=== PATIENT | female | born 1945 | race Caucasian/White ===

== ENCOUNTER → 2017-06-07 | Outpatient (CLI) | payer MEDICARE, BC ==
[2016-06-11 12:37] VITALS: BP 149/78
[~2017-06-07] MED LIST: VARE0.5T PO
--- NOTE | 2017-06-07 09:56 | KCIC ---
Bone mineral density exam History: Osteopenia, postmenopausal Comparison: January 23, 2014 Findings: Bone mineral density examination utilizing DEXA was performed. Bone mineral density of the left hip was 0.789 g/cm2 corresponds with a T score -1.3, Z score 0.5. Comparing with the previous exam, there has been 1.4% increase. The bone mineral density of the lumbar spine was 1.031 g/cm2 which corresponds with a T-score of -0.1, Z score 2.2 . Comparison with the previous exam, there has been 23% increase. There appears to be a greater degree of degenerative change in the interval, scoliosis also noted. There By World Congress on Osteoporosis criteria, a T score of 0 to-1 SD is considered to be within normal limits. A T score of -1 to -2.5 SD is considered osteopenia. A T score less than -2.5 SD is considered osteoporosis Impression: 1. Bone mineral density of the lumbar spine is considered within normal limits although likely artificially elevated due to the presence of progressive degenerative change. 2. There is osteopenia of the left hip. Electronically signed by: Manuel Mccabe MD (06/07/2017 9:53 AM) [id number]
== END | disposition home or self-care (01) ==
LOC: KCIC DEXA 09:02
PROVIDERS: ATTEND Family Medicine
DX: M85.80 Other specified disorders of bone density and structure, unspecified site (principal); Z78.0 Asymptomatic menopausal state
CPT/HCPCS: 77080

== ENCOUNTER 2018-12-28 23:46 | Emergency (ER) | payer MEDICARE, BC ==
[~2018-12-28] VITALS: Ht 165.1 cm; Wt 66.7 kg
[2018-12-29] MEDS ORDERED: IV NORMAL SALINE 1000ML BAG 1,000 ML IV SCH (00:15)
[2018-12-29] MEDS ORDERED: ONDANSETRON PF 4 MG/2 ML VIAL. IV ONE (00:15)
[2018-12-29 00:18] LABS: BILIRUBIN,URINE NEGATIVE (NEG); CLARITY,URINE CLEAR; COLOR,URINE YELLOW; NITRITE,URINE NEGATIVE (NEG); PH,URINE 6.5; PROTEIN,URINE 30 mg/dL (NEG-TRACE)
[2018-12-29 00:41] LABS: BASO # 0.1 x10^3/uL (0.0-0.2); BASO % 1 % (0-3); EOS % 0 % (0-3); HEMOGLOBIN 14.3 g/dL (12.0-15.5); LYMPH # 0.7 x10^3/uL (1.0-4.8); LYMPH % 10 % (24-48); MEAN CORPUSCULAR HEMOGLOBIN 31 pg (25-35); MEAN CORPUSCULAR HGB CONC 33 g/dL (31-37); MEAN CORPUSCULAR VOLUME 93 fL (79-100); MONO # 0.9 x10^3/uL (0.0-1.1); MONO % 12 % (0-9); NEUT # 5.4 x10^3uL (1.8-7.7); NEUT % 77 % (31-73); PLATELET COUNT 150 x10^3/uL (140-400); RED BLOOD COUNT 4.61 x10^6/uL (3.50-5.40); WHITE BLOOD COUNT 7.1 x10^3/uL (4.0-11.0)
--- NOTE | 2018-12-29 00:41 | PHYS DOC ---
Past Medical History Additional Past Medical Histor: CHRONIC BACK PAIN Additional Past Surgical Histo: SPINAL STIMULATOR Alcohol Use: Occasionally Drug Use: None Adult General Chief Complaint Chief Complaint: LOWER EXT PAIN HPI HPI Patient is a 73 year old female who presents with nausea, vomiting, headache, cramps in bilateral thighs. This started approximately 24-36 hours prior to arrival. No blood in the emesis. No diarrhea. Patient reports passing flatus. No significant abdominal pain. No chest pain or palpitations.[] Review of Systems Review of Systems Constitutional: Reports fever, no shaking chills[] Eyes: Denies change in visual acuity, redness, or eye pain [] HENT: Denies nasal congestion or sore throat [] Respiratory: Denies cough or shortness of breath [] Cardiovascular: Chest pain or palpitations[] GI: See history of present illness[] : Denies dysuria or hematuria [] Musculoskeletal: Denies back pain or joint pain [] Integument: Denies rash or skin lesions [] Neurologic: Denies focal weakness or sensory changes [] Endocrine: Denies polyuria or polydipsia [] All other systems were reviewed and found to be within normal limits, except as documented in this note. Current Medications Current Medications Current Medications Medications (Trade) Dose Ordered Sig/Pedro Start Time Stop Time Status Last Admin Dose Admin Ketorolac Tromethamine (Toradol 15mg Vial) 15 mg 1X ONCE 12/29/18 01:30 12/29/18 01:31 DC 12/29/18 01:28 15 MG Ondansetron HCl (Zofran) 4 mg 1X ONCE 12/29/18 00:15 12/29/18 00:16 DC 12/29/18 00:35 4 MG Sodium Chloride 1,000 ml @ 1,000 mls/hr Q1H 12/29/18 00:15 12/29/18 01:15 DC 12/29/18 00:35 1,000 MLS/HR Allergies Allergies Allergies Coded Allergies Type Severity Reaction Last Updated Verified Iodinated Contrast- Oral and IV Dye Allergy Intermediate 06/10/16 Yes Physical Exam Physical Exam Constitutional: Well developed, well nourished, no acute distress, non-toxic appearance. [] HENT: Normocephalic, atraumatic, bilateral external ears normal, oropharynx moist, no oral exudates, nose normal. [] Eyes: PERRLA, EOMI, conjunctiva normal, no discharge. [] Neck: Normal range of motion, no tenderness, supple, no stridor. [] Cardiovascular:Heart rate regular rhythm, no murmur [] Lungs & Thorax: Bilateral breath sounds clear to auscultation [] Abdomen: Bowel sounds normal, soft, no tenderness, no masses, no pulsatile masses. [] Skin: Warm, dry, no erythema, no rash. [] Back: No tenderness, no CVA tenderness. [] Extremities: No tenderness, no cyanosis, no clubbing, ROM intact, no edema. [] Neurologic: Alert and oriented X 3, normal motor function, normal sensory function, no focal deficits noted. [] Psychologic: Affect normal, judgement normal, mood normal. [] Current Patient Data Vital Signs Vital Signs Date Time Temp Pulse Resp B/P (MAP) Pulse Ox O2 Delivery O2 Flow Rate FiO2 12/29/18 01:26 96 17 156/75 (102) 94 Room Air 12/29/18 00:13 98.6 98.6 Lab Values Laboratory Tests Test 12/29/18 00:03 12/29/18 00:30 12/29/18 00:41 Urine Collection Type Unknown Urine Color Yellow Urine Clarity Clear Urine pH 6.5 Urine Specific [place] 1.025 Urine Protein 30 mg/dL (NEG-TRACE) Urine Glucose (UA) Negative mg/dL (NEG) Urine Ketones (Stick) Trace mg/dL (NEG) Urine Blood Small (NEG) Urine Nitrite Negative (NEG) Urine Bilirubin Negative (NEG) Urine Urobilinogen Dipstick 1.0 mg/dL (0.2 mg/dL) Urine Leukocyte Esterase Negative (NEG) Urine RBC Occ /HPF (0-2) Urine WBC Occ /HPF (0-4) Urine Squamous Epithelial Cells Occ /LPF Urine Bacteria Few /HPF (0-FEW) Urine Mucus Mod /LPF White Blood Count 7.1 x10^3/uL (4.0-11.0) Red Blood Count 4.61 x10^6/uL (3.50-5.40) Hemoglobin 14.3 g/dL (12.0-15.5) Hematocrit 43.0 % (36.0-47.0) Mean Corpuscular Volume 93 fL (79-100) Mean Corpuscular Hemoglobin 31 pg (25-35) Mean Corpuscular Hemoglobin Concent 33 g/dL (31-37) Red Cell Distribution Width 14.0 % (11.5-14.5) Platelet Count 150 x10^3/uL (140-400) Neutrophils (%) (Auto) 77 % (31-73) H Lymphocytes (%) (Auto) 10 % (24-48) L Monocytes (%) (Auto) 12 % (0-9) H Eosinophils (%) (Auto) 0 % (0-3) Basophils (%) (Auto) 1 % (0-3) Neutrophils # (Auto) 5.4 x10^3uL (1.8-7.7) Lymphocytes # (Auto) 0.7 x10^3/uL (1.0-4.8) L Monocytes # (Auto) 0.9 x10^3/uL (0.0-1.1) Eosinophils # (Auto) 0.0 x10^3/uL (0.0-0.7) Basophils # (Auto) 0.1 x10^3/uL (0.0-0.2) Prothrombin Time 12.8 SEC (11.7-14.0) Prothrombin Time INR 1.0 (0.8-1.1) Sodium Level 138 mmol/L (136-145) Potassium Level 4.2 mmol/L (3.5-5.1) Chloride Level 101 mmol/L (98-107) Carbon Dioxide Level 30 mmol/L (21-32) Anion Gap 7 (6-14) Blood Urea Nitrogen 12 mg/dL (7-20) Creatinine 0.7 mg/dL (0.6-1.0) Estimated GFR (Cockcroft-Gault) 81.6 BUN/Creatinine Ratio 17 (6-20) Glucose Level 111 mg/dL (70-99) H Calcium Level 8.9 mg/dL (8.5-10.1) Total Bilirubin 0.4 mg/dL (0.2-1.0) Aspartate Amino Transferase (AST) 27 U/L (15-37) Alanine Aminotransferase (ALT) 21 U/L (14-59) Alkaline Phosphatase 75 U/L (46-116) Total Protein 7.8 g/dL (6.4-8.2) Albumin 3.6 g/dL (3.4-5.0) Albumin/Globulin Ratio 0.9 (1.0-1.7) L Lipase 72 U/L (73-393) L Influenza Type A Antigen Negative (NEGATIVE) Influenza Type B Antigen Negative (NEGATIVE) Laboratory Tests 12/29/18 00:30 Laboratory Tests 12/29/18 00:30 EKG EKG [] Radiology/Procedures Radiology/Procedures [] Course & Med Decision Making Course & Med Decision Making Pertinent Labs and Imaging studies reviewed. (See chart for details) ED course: Patient arrived, was placed in bed, in tolerated exam well. Patient did get some relief with the Toradol as well as the antiemetics. Patient's vomiting did resolve with the antiemetics. Discussed findings and plan with patient and family who voiced understanding. Patient was discharged in improved condition Medical decision making: There is no evidence of an obstruction given patient still passing flatus, no evidence of intractable nausea or vomiting, no evidence of significant electrolyte abnormality, no evidence of urinary tract infection/pyelonephritis. No evidence of this being influenza.[] Dragon Disclaimer Dragon Disclaimer This electronic medical record was generated, in whole or in part, using a voice recognition dictation system. Departure Departure Impression: Primary Impression: Vomiting Additional Impressions: Myalgia Headache Disposition: 01 HOME, SELF-CARE Condition: IMPROVED Referrals: MARLA MARTINEZ MD (PCP) Follow-up in 2 days Patient Instructions: General Headache Without Cause, Myalgia, Adult, Nausea and Vomiting Additional Instructions: Drink plenty of fluids, frequent small sips. No fatty foods, no milk, and no pepper for the next 48 hours. For the next 48 hours eat a diet rich in carbohydrates with foods such as bananas, rice, applesauce, and toast. Follow- up with your regular doctor in 2 days. Return to the ER if unable to tolerate liquids, worsening headache, a fever of more than 101, or any other concerns. Scripts Meloxicam (MELOXICAM) 7.5 Mg Tablet 7.5 MG PO DAILY, #20 TAB Prov: KATHYA CROCKETT DO 12/29/18 Metoclopramide Hcl (REGLAN) 10 Mg Tablet 10 MG PO QIDACHS, #30 TAB 0 Refills Prov: KATHYA CROCKETT DO 12/29/18 Problem Qualifiers Primary Impression: Vomiting Vomiting type: unspecified Vomiting Intractability: non-intractable Nausea presence: unspecified Qualified Codes: R11.10 - Vomiting, unspecified Additional Impressions: Headache Headache type: unspecified Headache chronicity pattern: episodic headache Intractability: not intractable Qualified Codes: R51 - Headache KATHYA CROCKETT DO Dec 29, 2018 00:41
[2018-12-29 00:53] LABS: CALCIUM 8.9 mg/dL (8.5-10.1); CREATININE 0.7 mg/dL (0.6-1.0); GFR 81.6; POTASSIUM 4.2 mmol/L (3.5-5.1)
[2018-12-29 00:54] LABS: BACTERIA,URINE FEW /HPF (0-FEW); RBC,URINE OCC /HPF (0-2); SQUAMOUS EPITHELIAL CELL,UR OCC /LPF; WBC,URINE OCC /HPF (0-4)
[2018-12-29 00:54] LABS: PROTHROMBIN TIME PATIENT 12.8 SEC (11.7-14.0)
[2018-12-29 01:01] LABS: ALBUMIN 3.6 g/dL (3.4-5.0); ALBUMIN/GLOBULIN RATIO 0.9 (1.0-1.7); TOTAL BILIRUBIN 0.4 mg/dL (0.2-1.0); TOTAL PROTEIN 7.8 g/dL (6.4-8.2)
[2018-12-29 01:09] LABS: INFLUENZA A PATIENT NEGATIVE (NEGATIVE); INFLUENZA B PATIENT NEGATIVE (NEGATIVE)
[2018-12-29] MEDS ORDERED: KETOROLAC 15 MG/ML VIAL. IV ONE (01:30)
[2018-12-29] MEDS ORDERED: MELO7.5T29 PO (02:19)
[2018-12-29] MEDS ORDERED: METO10TA81 PO (02:19)
[2018-12-29 02:30] VITALS: BP 147/68
== END 2018-12-29 02:39 | disposition home or self-care (01) ==
LOC: ER 23:46
DX: R11.2 Nausea with vomiting, unspecified (principal); R51 Headache; M79.10 Myalgia, unspecified site; G89.29 Other chronic pain; Z91.041 Radiographic dye allergy status
CPT/HCPCS: 36415; 80053; 81001; 83690; 85025; 85610; 87804; 96361; 96374; 96375; 99283; J1885; J2405; J7030

== ENCOUNTER → 2019-06-27 | Outpatient (CLI) | payer MEDICARE, BC ==
[~2019-06-27] MED LIST changes: +MELO7.5T29 PO; +METO10TA81 PO
--- NOTE | 2019-06-27 15:53 | KCIC ---
EXAM: Right hip, 2 views; left hip, 2 views. HISTORY: Chronic pain. COMPARISON: None. FINDINGS: Frontal and frog-leg views of both hips are obtained. There is no fracture, dislocation or subluxation. The femoral heads are normal in configuration. There is mild marginal right greater than left femoral head spurring. There is degenerative change involving the lower lumbar spine. There is a generator within the right buttock with lead extending superior to the [id number]. There is suspected bone demineralization. IMPRESSION: 1. Mild bilateral hip osteoarthritis. 2. No acute osseous finding. Electronically signed by: Catherine España MD (06/27/2019 3:50 PM) [facility]
--- NOTE | 2019-06-27 15:53 | KCIC ---
EXAM: Right hip, 2 views; left hip, 2 views. HISTORY: Chronic pain. COMPARISON: None. FINDINGS: Frontal and frog-leg views of both hips are obtained. There is no fracture, dislocation or subluxation. The femoral heads are normal in configuration. There is mild marginal right greater than left femoral head spurring. There is degenerative change involving the lower lumbar spine. There is a generator within the right buttock with lead extending superior to the [id number]. There is suspected bone demineralization. IMPRESSION: 1. Mild bilateral hip osteoarthritis. 2. No acute osseous finding. Electronically signed by: Catherine España MD (06/27/2019 3:50 PM) [facility]
== END | disposition home or self-care (01) ==
LOC: KCIC 13:40
PROVIDERS: ATTEND Family Medicine
DX: M16.0 Bilateral primary osteoarthritis of hip (principal); G89.29 Other chronic pain
CPT/HCPCS: 73502

== ENCOUNTER → 2019-08-21 | Outpatient (CLI) | payer MEDICARE, BC ==
--- NOTE | 2019-08-30 10:44 | KCIC ---
EXAM: Dual energy x-ray absorptiometry (DEXA). HISTORY: Postmenopausal female presents for osteoporosis screening. COMPARISON: 01/23/2014. TECHNIQUE: Dual energy x-ray absorptiometry of the lumbar spine and left hip was performed. Calculation of bone mineral density based on standard deviations above or below the expected young adult normal value (T-score) was completed. FINDINGS: The average bone mineral density in the 1st through 4th lumbar vertebrae is 1.149 g/cmxcm, corresponding with a T-score of 0.9. There has been a 37% increase in density of the lumbar spine compared to a baseline exam dated 01/23/2014. The average total bone mineral density in the left hip is 0.756 g/cmxcm, corresponding with a T-score of -1.5. There has been a 2.9% decrease in density of the left hip compared to the baseline exam dated 01/23/2014. IMPRESSION: 1. Osteopenia measured at the left hip. 2. Normal bone mineral density measured at the lumbar spine. Note: Definitions established by the World Health Organization: 1. Normal: T-score is -1.0 or above. 2. Osteopenia: T-score is between -1.0 and -2.5 . 3. Osteoporosis: T-score is -2.5 or below. Electronically signed by: Catherine España MD (08/30/2019 10:41 AM) [facility]
== END | disposition home or self-care (01) ==
LOC: KCIC DEXA 11:25
PROVIDERS: ATTEND Family Medicine
DX: M85.80 Other specified disorders of bone density and structure, unspecified site (principal); Z78.0 Asymptomatic menopausal state
CPT/HCPCS: 77080

== ENCOUNTER → 2019-12-19 | Outpatient (CLI) | payer MEDICARE, BC ==
[2019-12-19 10:18] LABS: BASO % 0 % (0-3); EOS # 0.2 x10^3/uL (0.0-0.7); EOS % 3 % (0-3); HEMATOCRIT 40.7 % (36.0-47.0); HEMOGLOBIN 13.6 g/dL (12.0-15.5); LYMPH # 1.7 x10^3/uL (1.0-4.8); LYMPH % 23 % (24-48); MEAN CORPUSCULAR HEMOGLOBIN 31 pg (25-35); MEAN CORPUSCULAR HGB CONC 33 g/dL (31-37); MEAN CORPUSCULAR VOLUME 92 fL (79-100); MONO # 0.8 x10^3/uL (0.0-1.1); MONO % 10 % (0-9); NEUT # 4.7 x10^3/uL (1.8-7.7); NEUT % 63 % (31-73); PLATELET COUNT 193 x10^3/uL (140-400); RED BLOOD COUNT 4.43 x10^6/uL (3.50-5.40); RED CELL DISTRIBUTION WIDTH 13.8 % (11.5-14.5); WHITE BLOOD COUNT 7.4 x10^3/uL (4.0-11.0)
[2019-12-19 10:26] LABS: CALCIUM 9.1 mg/dL (8.5-10.1); CREATININE 0.7 mg/dL (0.6-1.0); GFR 81.4; POTASSIUM 4.3 mmol/L (3.5-5.1)
[2019-12-19 10:31] LABS: ALBUMIN 3.8 g/dL (3.4-5.0); ALBUMIN/GLOBULIN RATIO 1.1 (1.0-1.7); TOTAL BILIRUBIN 0.3 mg/dL (0.2-1.0); TOTAL PROTEIN 7.4 g/dL (6.4-8.2)
[2019-12-19 10:56] LABS: FREE T4 0.95 ng/dL (0.76-1.46); THYROID STIM HORMONE (TSH) 1.54 uIU/mL (0.358-3.74)
--- NOTE | 2019-12-19 12:25 | RAD ---
CHEST PA LATERAL INDICATION: Peripheral edema, respiratory crackles. COMPARISON STUDY: 01/14/2010. FINDINGS: Lungs: Normal lung volume. Minimal interstitial prominence. No consolidation. The tracheobronchial tree and hilar structures are normal. Pleura: No pleural effusion or pneumothorax. Heart and Mediastinum: Cardiomegaly. Tortuous thoracic aorta. Bones and Soft Tissues: Multilevel degenerative changes of the spine. Spinal stability device leads. IMPRESSION: Minimal interstitial prominence, which may reflect trace interstitial edema. No consolidation. Electronically signed by: Manuel Navarrete MD (12/19/2019 12:22 PM) [facility]
== END | disposition home or self-care (01) ==
LOC: RAD 09:55
PROVIDERS: ATTEND Physician Assistant Medical
DX: I51.7 Cardiomegaly (principal); M47.814 Spondylosis without myelopathy or radiculopathy, thoracic region; R60.9 Edema, unspecified; R09.89 Other specified symptoms and signs involving the circulatory and respiratory systems; R63.5 Abnormal weight gain
CPT/HCPCS: 36415; 71046; 80053; 83880; 84439; 84443; 85025

== ENCOUNTER → 2020-01-08 | Outpatient (CLI) | payer MEDICARE, BC ==
[~2020-01-08] MED LIST changes: +ALBU2.5V5 NEB; +AZIT500T PO; +PRED50TA PO
--- NOTE | 2020-01-08 07:40 | RAD ---
EXAM: Bilateral lower extremity venous Doppler. HISTORY: Bilateral lower extremity pain/swelling. COMPARISON: None. FINDINGS: Grayscale and Doppler analysis of the both lower extremity deep venous systems was performed with graded compression and augmentation. The common femoral, greater saphenous, superficial femoral, popliteal and calf veins were assessed. There is no evidence of deep venous thrombosis. A right popliteal cyst measures 4.7 x 0.7 x 3.8 cm. IMPRESSION: 1. No evidence of deep venous thrombosis. 2. Small right popliteal cyst. Electronically signed by: Lane Sanabria MD (01/08/2020 7:37 AM) [id number]
== END | disposition home or self-care (01) ==
LOC: US 06:43
PROVIDERS: ATTEND Family Medicine
DX: M71.21 Synovial cyst of popliteal space [Baker], right knee (principal)
CPT/HCPCS: 93970

== ENCOUNTER 2020-01-13 19:28 | Emergency (ER) | payer MEDICARE, BC ==
[~2020-01-13] VITALS: Ht 157.5 cm; Wt 72.7 kg
[~2020-01-13 19:28] MED LIST changes: -ALBU2.5V5 NEB; -AZIT500T PO; -PRED50TA PO
[2020-01-13] MEDS ORDERED: IPRATRPIUM/ALBUTEROL 0.5/2.5MG 3 ML NEBU. NEB ONE (20:45)
--- NOTE | 2020-01-13 20:47 | PHYS DOC ---
Past Medical History Additional Past Medical Histor: CHRONIC BACK PAIN Additional Past Surgical Histo: SPINAL STIMULATOR Smoking Status: Current Every Day Smoker Alcohol Use: Occasionally Drug Use: None Adult General Chief Complaint Chief Complaint: COUGH HPI HPI 74-year-old female presents to the emergency Department complaints of cough, fever off and on since Monday. She describes hoarseness in her voice as well. She denies any nausea, vomiting, abdominal pain, headache or visual change. She does complain of right shoulder pain, there is a bruise to her right shoulder on exam. Nothing makes her symptoms worse, nothing makes her symptoms better. Review of Systems Review of Systems Constitutional: fever HENT:cough Respiratory: cough/wheeze Cardiovascular: No additional information not addressed in HPI [] GI: Denies abdominal pain, nausea, vomiting, bloody stools or diarrhea [] : Denies dysuria or hematuria [] Musculoskeletal: right shoulder pain Integument: Denies rash or skin lesions [] Neurologic: Denies headache, focal weakness or sensory changes [] All other systems were reviewed and found to be within normal limits, except as documented in this note. Current Medications Current Medications Current Medications Medications (Trade) Dose Ordered Sig/Pedro Start Time Stop Time Status Last Admin Dose Admin Albuterol/ Ipratropium (Duoneb) 3 ml 1X ONCE 01/13/20 20:45 01/13/20 20:46 DC 01/13/20 20:58 3 ML Azithromycin (Zithromax) 500 mg 1X ONCE 01/13/20 22:30 01/13/20 22:31 01/13/20 22:27 500 MG Ceftriaxone Sodium (Rocephin) 1 gm 1X ONCE 01/13/20 22:30 01/13/20 22:31 01/13/20 22:28 1 GM Prednisone (Prednisone) 60 mg 1X ONCE 01/13/20 22:30 01/13/20 22:31 01/13/20 22:26 60 MG Sodium Chloride 1,000 ml @ 1,000 mls/hr 1X ONCE 01/13/20 21:45 01/13/20 22:44 01/13/20 21:38 1,000 MLS/HR Allergies Allergies Allergies Coded Allergies Type Severity Reaction Last Updated Verified Iodinated Contrast Media Allergy Intermediate 06/10/16 Yes Physical Exam Physical Exam Constitutional: Well developed, well nourished, mild distress 2/2 SOB, non-toxic appearance. [] HENT: Normocephalic, atraumatic, bilateral external ears normal, oropharynx moist, no oral exudates, nose normal. [] Eyes: PERRLA, EOMI, conjunctiva normal, no discharge. [] Cardiovascular:Heart rate regular rhythm, no murmur [] Lungs & Thorax: decreased BS, + wheeze Abdomen: Bowel sounds normal, soft, no tenderness, no masses, no pulsatile masses. [] Skin: Warm, dry, no erythema, no rash. [] Back: No tenderness, no CVA tenderness. [] Extremities: Tenderness to palpation of right shoulder, + bruising, no edema. [] Neurologic: Alert and oriented X 3, no focal deficits noted. [] Psychologic: Affect normal, judgement normal, mood normal. [] Current Patient Data Vital Signs Vital Signs Date Time Temp Pulse Resp B/P (MAP) Pulse Ox O2 Delivery O2 Flow Rate FiO2 01/13/20 21:36 107 22 152/75 (100) 95 Room Air 2.0 01/13/20 20:30 99.7 99.7 Lab Values Laboratory Tests Test 01/13/20 20:40 01/13/20 20:54 01/13/20 21:30 White Blood Count 11.4 x10^3/uL (4.0-11.0) H Red Blood Count 4.27 x10^6/uL (3.50-5.40) Hemoglobin 13.0 g/dL (12.0-15.5) Hematocrit 38.9 % (36.0-47.0) Mean Corpuscular Volume 91 fL (79-100) Mean Corpuscular Hemoglobin 31 pg (25-35) Mean Corpuscular Hemoglobin Concent 34 g/dL (31-37) Red Cell Distribution Width 13.7 % (11.5-14.5) Platelet Count 182 x10^3/uL (140-400) Neutrophils (%) (Auto) 74 % (31-73) H Lymphocytes (%) (Auto) 13 % (24-48) L Monocytes (%) (Auto) 11 % (0-9) H Eosinophils (%) (Auto) 2 % (0-3) Basophils (%) (Auto) 1 % (0-3) Neutrophils # (Auto) 8.4 x10^3/uL (1.8-7.7) H Lymphocytes # (Auto) 1.4 x10^3/uL (1.0-4.8) Monocytes # (Auto) 1.3 x10^3/uL (0.0-1.1) H Eosinophils # (Auto) 0.2 x10^3/uL (0.0-0.7) Basophils # (Auto) 0.1 x10^3/uL (0.0-0.2) Sodium Level 139 mmol/L (136-145) Potassium Level 3.6 mmol/L (3.5-5.1) Chloride Level 101 mmol/L (98-107) Carbon Dioxide Level 29 mmol/L (21-32) Anion Gap 9 (6-14) Blood Urea Nitrogen 16 mg/dL (7-20) Creatinine 0.7 mg/dL (0.6-1.0) Estimated GFR (Cockcroft-Gault) 81.4 BUN/Creatinine Ratio 23 (6-20) H Glucose Level 103 mg/dL (70-99) H Lactic Acid Level 0.8 mmol/L (0.4-2.0) Calcium Level 8.8 mg/dL (8.5-10.1) Total Bilirubin 0.4 mg/dL (0.2-1.0) Aspartate Amino Transferase (AST) 20 U/L (15-37) Alanine Aminotransferase (ALT) 20 U/L (14-59) Alkaline Phosphatase 72 U/L (46-116) Total Protein 7.4 g/dL (6.4-8.2) Albumin 3.8 g/dL (3.4-5.0) Albumin/Globulin Ratio 1.1 (1.0-1.7) Influenza Type A Antigen Negative (NEGATIVE) Influenza Type B Antigen Negative (NEGATIVE) Urine Collection Type Unknown Urine Color Yellow Urine Clarity Clear Urine pH 6.5 Urine Specific [place] 1.010 Urine Protein Negative mg/dL (NEG-TRACE) Urine Glucose (UA) Negative mg/dL (NEG) Urine Ketones (Stick) Negative mg/dL (NEG) Urine Blood Negative (NEG) Urine Nitrite Negative (NEG) Urine Bilirubin Negative (NEG) Urine Urobilinogen Dipstick 0.2 mg/dL (0.2 mg/dL) Urine Leukocyte Esterase Negative (NEG) Urine RBC 1-2 /HPF (0-2) Urine WBC 0 /HPF (0-4) Urine Squamous Epithelial Cells Occ /LPF Urine Bacteria 0 /HPF (0-FEW) Laboratory Tests 01/13/20 20:40 Laboratory Tests 01/13/20 20:40 EKG EKG 2110 Sinus tachycardia, LAD, No STEMI, RBBB, [] Radiology/Procedures Radiology/Procedures [] Course & Med Decision Making Course & Med Decision Making Pertinent Labs and Imaging studies reviewed. (See chart for details) []74-year-old female presents to the emergency Department complaints of cough, fever off and on since Monday. She describes hoarseness in her voice as well. She denies any nausea, vomiting, abdominal pain, headache or visual change. She does complain of right shoulder pain, there is a bruise to her right shoulder on exam. Nothing makes her symptoms worse, nothing makes her symptoms better. Labs/Imaging reviewed No obvious consolidation appreciated on chest x-ray Influenza negative, white blood cell count 11.4, metabolic profile unremarkable Patient received nebulizer treatment, DuoNeb in the emergency department with improvement. Given her symptoms I have recommended by mouth antibiotic therapy upon discharge, Medrol Dosepak, Mucinex Patient received Rocephin and Zithromax in ER Dragon Disclaimer Dragon Disclaimer See Above Departure Departure Impression: Primary Impression: Bronchitis Disposition: 01 , SELF-CARE Condition: IMPROVED Referrals: MARLA MARTINEZ MD (PCP) Patient Instructions: Acute Bronchitis Additional Instructions: Recommend follow up with PCP 2 - 3 days Rx provided for azithromycin x 5 days Rx provided for steroid burst Rx provided for albuterol neb at home Mucinex OTC as needed Encourage fluid intake Return to the ER with worsening symptoms, fever not improved with motrin/tylenol, increased SOB, chest pain, altered mental status Scripts Azithromycin (ZITHROMAX) 500 Mg Tablet 1 TAB PO DAILY, #5 TAB Prov: ERNESTO DE LA GARZA MD 01/13/20 Prednisone (PREDNISONE) 50 Mg Tablet 1 TAB PO DAILY, #3 TAB Prov: ERNESTO DE LA GARZA MD 01/13/20 Albuterol Sulfate (ALBUTEROL SULFATE NEB SOLN) 2.5 Mg/3 Ml Vial.neb 1 VIAL NEB Q6HRS PRN for SHORTNESS OF BREATH, #25 VIAL Prov: ERNESTO DE LA GARZA MD 01/13/20 ERNESTO DE LA GARZA MD Jan 13, 2020 20:47
[2020-01-13 20:53] LABS: BASO # 0.1 x10^3/uL (0.0-0.2); BASO % 1 % (0-3); EOS # 0.2 x10^3/uL (0.0-0.7); EOS % 2 % (0-3); HEMATOCRIT 38.9 % (36.0-47.0); LYMPH # 1.4 x10^3/uL (1.0-4.8); LYMPH % 13 % (24-48); MEAN CORPUSCULAR HEMOGLOBIN 31 pg (25-35); MEAN CORPUSCULAR HGB CONC 34 g/dL (31-37); MEAN CORPUSCULAR VOLUME 91 fL (79-100); MONO # 1.3 x10^3/uL (0.0-1.1); MONO % 11 % (0-9); NEUT # 8.4 x10^3/uL (1.8-7.7); NEUT % 74 % (31-73); PLATELET COUNT 182 x10^3/uL (140-400); RED BLOOD COUNT 4.27 x10^6/uL (3.50-5.40); RED CELL DISTRIBUTION WIDTH 13.7 % (11.5-14.5); WHITE BLOOD COUNT 11.4 x10^3/uL (4.0-11.0)
[2020-01-13 21:00] LABS: CALCIUM 8.8 mg/dL (8.5-10.1); CREATININE 0.7 mg/dL (0.6-1.0); GFR 81.4; POTASSIUM 3.6 mmol/L (3.5-5.1)
[2020-01-13 21:15] LABS: ALBUMIN 3.8 g/dL (3.4-5.0); ALBUMIN/GLOBULIN RATIO 1.1 (1.0-1.7); TOTAL BILIRUBIN 0.4 mg/dL (0.2-1.0); TOTAL PROTEIN 7.4 g/dL (6.4-8.2)
[2020-01-13 21:17] LABS: INFLUENZA A PATIENT NEGATIVE (NEGATIVE); INFLUENZA B PATIENT NEGATIVE (NEGATIVE)
[2020-01-13 21:38] LABS: BILIRUBIN,URINE NEGATIVE (NEG); CLARITY,URINE CLEAR; COLOR,URINE YELLOW; NITRITE,URINE NEGATIVE (NEG); PH,URINE 6.5; PROTEIN,URINE NEGATIVE (NEG-TRACE); UROBILINOGEN,URINE 0.2 mg/dL (0.2 mg/dL)
[2020-01-13] MEDS ORDERED: IV NORMAL SALINE 1000ML BAG 1,000 ML IV ONE (21:45)
[2020-01-13 21:46] LABS: BACTERIA,URINE 0 /HPF (0-FEW); SQUAMOUS EPITHELIAL CELL,UR OCC /LPF; WBC,URINE 0 /HPF (0-4)
[2020-01-13] MEDS ORDERED: predniSONE 20 MG TABLET PO ONE (22:30)
[2020-01-13] MEDS ORDERED: AZITHROMYCIN 250 MG TABLET. PO ONE (22:30)
[2020-01-13] MEDS ORDERED: cefTRIAXone IV Push 1 GM VIAL. IVP ONE (22:30)
--- NOTE | 2020-01-13 22:31 | RAD ---
Exam: Right shoulder 3 views INDICATION: Fall, bruising to right shoulder TECHNIQUE: Frontal view of the right shoulder with internal and external rotation and transscapular Y view. Comparisons: None FINDINGS: Bone mineralization is normal. No acute or healed fractures. Soft tissues are unremarkable. Joint spaces are well-maintained. IMPRESSION: No acute osseous abnormality. Electronically signed by: Neetu Alfonso MD (01/13/2020 10:29 PM) [id number]
--- NOTE | 2020-01-13 22:32 | RAD ---
Exam: Chest 2 views INDICATION: Cough TECHNIQUE: Frontal and lateral views the chest Comparisons: 12/19/2019 FINDINGS: The cardiomediastinal silhouette and pulmonary vessels are within normal limits. The lung and pleural spaces are clear. IMPRESSION: No acute cardiopulmonary process. Electronically signed by: Neetu Alfonso MD (01/13/2020 10:30 PM) [id number]
[2020-01-13] MEDS ORDERED: ALBU2.5V5 NEB (22:34)
[2020-01-13] MEDS ORDERED: PRED50TA PO (22:34)
[2020-01-13] MEDS ORDERED: AZIT500T PO (22:34)
[2020-01-13 22:47] VITALS: BP 152/70
--- NOTE | 2020-01-14 05:45 | EKG ---
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
== END 2020-01-13 22:48 | disposition home or self-care (01) ==
LOC: ER 19:28
DX: J40 Bronchitis, not specified as acute or chronic (principal); G89.29 Other chronic pain; F17.200 Nicotine dependence, unspecified, uncomplicated; Z91.041 Radiographic dye allergy status
CPT/HCPCS: 36415; 71046; 73030; 80053; 81001; 83605; 85025; 87040; 87804; 93005; 94640; 96374; 99285; J0696; J7030; J7512; J7620; Q0144

== ENCOUNTER → 2020-04-10 | Outpatient (CLI) | payer MEDICARE, BC ==
[2020-02-04 15:00] VITALS: BP 149/78
[~2020-04-10] MED LIST changes: +ALBU2.5V5 NEB; +ALPR0.5T PO; +AZIT500T PO; +CHOL-5 PO; +GABA600T7 PO; +LOSA1TAB19 PO; +OMEP20TA63 PO; +OXYC1TAB22 PO; +PRAM0.255 PO; +PRED50TA PO; +TIZA4TAB2 PO
--- NOTE | 2020-04-10 13:09 | RAD ---
Study: CT CHEST WITHOUT CONTRAST History: Abnormal CT Comparison: CT chest 01/27/2020 Technique: Helical CT of the chest without contrast. Coronal and sagittal reformats were obtained. One or more of the following individualized dose reduction techniques were utilized for this examination: 1. Automated exposure control 2. Adjustment of the mA and/or kV according to patient size 3. Use of iterative reconstruction technique. Findings: Thyroid gland and thoracic inlet: The visualized portion of the thyroid gland is normal. No lymphadenopathy. Heart and great vessels: The heart is normal in size. No pericardial effusion. Thoracic aorta is normal in caliber with mild calcified atherosclerosis. Mediastinum and nya: There are small calcified mediastinal lymph nodes. No lymphadenopathy. Lungs and pleura: Groundglass opacities in both lung on prior exam have resolved. Scattered, predominantly peripheral small cystic changes in areas of previously seen groundglass opacities persists and may be post infectious pneumatoceles. No new opacities. No suspicious pulmonary nodule. No pleural effusion. Neck/Axilla/Body Wall: No axillary lymphadenopathy. Chest wall is unremarkable. Upper Abdomen: Moderate hiatal hernia. Infrarenal abdominal aortic aneurysm measuring 4.5 cm is redemonstrated, incompletely visualized. Ill-defined hypodense lesion in the mid right kidney measuring approximately 2 cm similar to prior exam and is indeterminate. Bones: There is thoracolumbar scoliosis. No acute osseous abnormality. A spinal stimulator is seen in the thoracic canal. IMPRESSION: 1. Interval resolution of groundglass opacities in the lungs. There are residual predominantly peripheral small cystic changes at the sites of prior groundglass opacities, suspicious for postinfectious pneumatoceles. Mild paraseptal emphysema could also have this appearance. 2. Redemonstration of 4.5 cm infrarenal abdominal aortic aneurysm, incompletely visualized. 3. Unchanged indeterminate 2 cm lesion in the mid right kidney. Consider ultrasound or CT renal mass protocol to further evaluate. 4. Unchanged moderate hiatal hernia. Electronically signed by: Octavia Jane MD (04/10/2020 1:06 PM) [id number]
== END | disposition home or self-care (01) ==
LOC: CT 14:43
PROVIDERS: ATTEND Internal Medicine Pulmonary Disease
DX: J98.4 Other disorders of lung (principal); I70.0 Atherosclerosis of aorta; I71.4 Abdominal aortic aneurysm, without rupture; R91.8 Other nonspecific abnormal finding of lung field; K44.9 Diaphragmatic hernia without obstruction or gangrene; M41.85 Other forms of scoliosis, thoracolumbar region
CPT/HCPCS: 71250

== ENCOUNTER → 2020-05-18 | Outpatient (CLI) | payer MEDICARE, BC ==
[2020-02-04 15:00] VITALS: BP 149/78
--- NOTE | 2020-05-18 10:15 | RAD ---
Examination: Ultrasound kidneys HISTORY: History of right kidney mass Comparison: CT chest from 04/10/2020 FINDINGS: The right kidney was 10.8 x 4.7 x 4.0 cm. The left kidney measures 12.5 x 4.8 x 6.4 cm. There is a 2 cm cystic structure identified in the right kidney likely a cyst. No evidence of hydronephrosis. The urinary bladder is mildly distended IMPRESSION: 1. 2 cm cyst right kidney. Electronically signed by: Tommie Willis MD (05/18/2020 10:12 AM) [id number]
== END | disposition home or self-care (01) ==
LOC: US 09:41
PROVIDERS: ATTEND Family Medicine
DX: N28.1 Cyst of kidney, acquired (principal); N28.89 Other specified disorders of kidney and ureter
CPT/HCPCS: 76770

== ENCOUNTER 2020-05-22 07:43 | Emergency (ER) | payer MEDICARE, BC ==
[~2020-05-22] VITALS: Ht 165.1 cm; Wt 68.1 kg
[2020-05-22] MEDS ORDERED: oxyCODONE/APAP 5/325 1 TAB TABLET PO ONE (08:30)
--- NOTE | 2020-05-22 08:45 | RAD ---
Study: 1. CR KNEE LEFT 3V 2. CR FOOT LEFT 2V 3. CR ANKLE LEFT 3V Indication: Pain after a fall. Comparison: None. Findings: Knee: No acute fracture or traumatic malalignment. No distention of the suprapatellar recess to confirm a knee joint effusion. Femorotibial joint space height is maintained. Ankle: A small ossific fragment along the medial aspect of the medial malleolus appears chronic. There is faint bony irregularity at the tip of both the medial and lateral malleoli without a displaced fracture. The ankle mortise is symmetric noting the absence of weightbearing. No abnormal widening of the distal syndesmosis. Soft tissue prominence at the anterior ankle joint space suggests an ankle joint effusion. No overt soft tissue swelling at the medial or lateral ankles but the subcutaneous tissues do appear somewhat edematous. Foot: Nondisplaced fracture at the base of the fifth metatarsal. There are some lucencies at the base of the third and fourth metatarsals as well but difficult to confirm is fractures given osteopenia. Incomplete assessment of the Lisfranc interval due to patient positioning and absence of weightbearing. Chronic deformity of the first metatarsal. Scattered degenerative changes greatest at the tarsometatarsal joints. Plantar calcaneal spur. Impression: Knee: 1. No acute fracture or traumatic malalignment. Ankle: 1. Mild osseous irregularity at the tip of both the medial and lateral malleoli. A subtle nondisplaced fracture particularly at the tip of the little malleolus is difficult to exclude. Recommend correlation for pinpoint tenderness. 2. Ankle joint effusion. Foot: 1. Nondisplaced fracture at the base of the fifth metatarsal occurring at the tuberosity. 2. Subtle lucencies at the base of the 3rd and 4th metatarsals but there is no displacement to confirm a fracture. As deemed necessary, a CT of the foot could be performed to better evaluate and also allow for further assessment of the ankle. Electronically signed by: GALINA BENOIT MD (05/22/2020 8:42 AM) [id number]
--- NOTE | 2020-05-22 08:51 | PHYS DOC ---
Past Medical History Past Medical History: Other Additional Past Medical Histor: CHRONIC BACK PAIN Past Surgical History: Other Additional Past Surgical Histo: SPINAL STIMULATOR Smoking Status: Current Every Day Smoker Additional Information: 1/2 ppd Alcohol Use: Occasionally Drug Use: None General Adult EDM: Chief Complaint: MECHANICAL FALL Problems: (1) Fall HPI: HPI: Patient is a 74 year old female who presents after a fall. Patient states that she tried to stand up on her leg while it was asleep and it gave out from under her. She had immediate pain in her foot, ankle, knee. She denies hitting her head. She did not lose consciousness. She did not have any syncope, chest pain, shortness of breath, recent illness. She states she has a pressure pain in her ankle along with sharp pain anytime she tries to walk or move. She denies any numbness or weakness. She is significantly worsening pain if she tries to move her toes. Review of Systems: Review of Systems: General: Denies fever, chills, sweats, fatigue Eyes: Denies drainage, blurred vision HENT: Denies rhinorrhea, sore throat Respiratory: Denies cough, shortness of breath, wheezing Cardiac: Denies edema, palpitations, chest pain GI: Denies abdominal pain, N/V MSK: Denies back pain, neck pain Skin: Denies rash, jaundice Neuro: Denies headache, dizziness Psychiatric: Denies SI/HI Heart Score: Risk Factors: Risk Factors: DM, Current or recent (<one month) smoker, HTN, HLP, family history of CAD, obesity. Risk Scores: Score 0 - 3: 2.5% MACE over next 6 weeks - Discharge Home Score 4 - 6: 20.3% MACE over next 6 weeks - Admit for Clinical Observation Score 7 - 10: 72.7% MACE over next 6 weeks - Early Invasive Strategies Current Medications: Current Medications Medications (Trade) Dose Ordered Sig/Pedro Start Time Stop Time Status Last Admin Dose Admin Oxycodone/ Acetaminophen (Percocet 5/325) 1 tab 1X ONCE 05/22/20 08:30 05/22/20 08:39 DC 05/22/20 08:37 1 TAB Allergies: Allergies: Allergies Coded Allergies Type Severity Reaction Last Updated Verified Iodinated Contrast Media Adverse Reaction Severe SEIZURES 05/22/20 Yes Physical Exam: PE: Constitutional: Well developed, well nourished, Cooperative, NAD, non-toxic appearing HEENT: Normocephalic, atraumatic, oropharynx moist, EOMI, PERRL, no drainage from eyes, normal conjunctiva Neck: Supple, normal range of motion, no stridor Cardiovascular: RRR, 2+ radial pulses bilaterally, no edema Respiratory: CTA bilaterally, no respiratory distress, no wheezing/crackles Abdomen: Soft, nontender, nondistended, no masses Skin: Warm, dry, intact Extremities: Mild tenderness to left anterior knee, no knee bruising or swel ling, left ankle swelling and tenderness along of the lateral malleolus and dorsal foot Neurologic: Alert and Oriented x3, motor and sensory function grossly normal, no focal deficits Psychologic: Normal affect, normal judgment, normal mood. No SI/HI Current Patient Data: Vital Signs: Vital Signs Date Time Temp Pulse Resp B/P (MAP) Pulse Ox O2 Delivery O2 Flow Rate FiO2 05/22/20 08:37 20 96 Room Air 05/22/20 07:50 98.5 83 157/73 (101) 98.5 EKG: EKG: [] Radiology/Procedures: Radiology/Procedures: [] Course & Med Decision Making: Course & Med Decision Making Pertinent Labs and Imaging studies reviewed. (See chart for details) Patient is 74-year-old female who presents to the emergency room complaining of pain after a fall. She has tenderness along the knee, ankle, foot. X-rays were ordered of knee, ankle, foot. She did not hit her head and does not need a CT of her head at this time. She did not have any syncopal event and does not need a syncope work-up at this time. She is given Percocet for pain. Patient has a metatarsal fracture. Short leg splint placed and patient given crutches. She will be discharged home and will follow up with her orthopedic surgeon in 1 week. Patient's test results and vitals while in the ED were fully reviewed and discussed with the patient. Patient is stable and at this time does not need admission to the hospital. We have discussed strict return precautions and the importance of following up with their Primary Care Physician. Patient stated understanding and was given an opportunity to ask any questions. Woodrow Disclaimer: Woodrow Disclaimer: This electronic medical record was generated, in whole or in part, using a voice recognition dictation system. Departure Departure Impression: Primary Impression: Metatarsal bone fracture Additional Impressions: Fall Knee pain Disposition: HOME, SELF-CARE Condition: GOOD Referrals: MARLA MARTINEZ MD (PCP) Patient Instructions: Cast or Splint Care, Metatarsal Fracture, Undisplaced Justicifation of Admission Dx: Justifications for Admission: Justification of Admission Dx: BHARATH Rudolph MD May 22, 2020 08:51
[2020-05-22 09:21] VITALS: BP 142/64
== END 2020-05-22 09:55 | disposition home or self-care (01) ==
LOC: ER 07:43
DX: S92.355A Nondisplaced fracture of fifth metatarsal bone, left foot, initial encounter for closed fracture (principal); M25.572 Pain in left ankle and joints of left foot; Z91.041 Radiographic dye allergy status; W18.39XA Other fall on same level, initial encounter; Y93.89 Activity, other specified; Y92.89 Other specified places as the place of occurrence of the external cause; Y99.8 Other external cause status
CPT/HCPCS: 29515; 73562; 73610; 73620; 99284

== ENCOUNTER 2020-10-27 12:27 | Emergency (ER) | payer MEDICARE, BC ==
[~2020-10-27] VITALS: Ht 157.5 cm; Wt 67.0 kg
[2020-10-27 14:17] VITALS: BP 166/88
--- NOTE | 2020-10-27 14:39 | PHYS DOC ---
Past Medical History Past Medical History: Other Additional Past Medical Histor: CHRONIC BACK PAIN Past Surgical History: Other Additional Past Surgical Histo: SPINAL STIMULATOR Smoking Status: Current Every Day Smoker Alcohol Use: Occasionally Drug Use: None General Adult EDM: Chief Complaint: ANKLE PROBLEM HPI: HPI: Patient is a 75 year old female who presents with chief complaint of left ankle pain. Patient had a mechanical fall 2 months ago and has had pain since then although the pain is intensified over the last 3 weeks. Patient has followed up with Dr. Marquez but states she has mild pain at rest but moderate to severe pain described as discomfort primarily on the left medial malleolus that is worse with ambulation. Pain does not radiate significantly. Patient has had swelling in this area as well. Patient has any fevers chills cough or shortness of breath. Patient is some mild tingling to her left lateral foot Review of Systems: Review of Systems: Constitutional: Denies fever or chills. [] Eyes: Denies change in visual acuity. [] HENT: Denies nasal congestion or sore throat. [] Respiratory: Denies cough or shortness of breath. [] Cardiovascular: Denies chest pain or edema. [] GI: Denies abdominal pain, nausea, vomiting, bloody stools or diarrhea. [] : Denies dysuria. [] Musculoskeletal: Denies back pain but has left ankle pain. Integument: Denies rash. [] Neurologic: Denies headache, focal weakness or sensory changes. [] Endocrine: Denies polyuria or polydipsia. [] Lymphatic: Denies swollen glands. [] Psychiatric: Denies depression or anxiety. [] Heart Score: Risk Factors: Risk Factors: DM, Current or recent (<one month) smoker, HTN, HLP, family his tory of CAD, obesity. Risk Scores: Score 0 - 3: 2.5% MACE over next 6 weeks - Discharge Home Score 4 - 6: 20.3% MACE over next 6 weeks - Admit for Clinical Observation Score 7 - 10: 72.7% MACE over next 6 weeks - Early Invasive Strategies Allergies: Allergies: Allergies Coded Allergies Type Severity Reaction Last Updated Verified Iodinated Contrast Media Adverse Reaction Severe SEIZURES 05/22/20 Yes Physical Exam: PE: Constitutional: Well developed, well nourished, no acute distress, non-toxic appearance. [] HENT: Normocephalic, atraumatic, bilateral external ears normal, no trismus, nose normal. [] Eyes: PERRLA, EOMI, conjunctiva normal, no discharge. [] Neck: Normal range of motion, no tenderness, supple, no stridor. [] Cardiovascular:Heart rate regular rhythm, peripheral pulses intact cap refill is brisk Lungs & Thorax: Bilateral breath sounds clear, no respiratory distress Abdomen: Soft and nondistended Skin: Warm, dry, no erythema, no rash. [] Back: No tenderness, no CVA tenderness. [] Extremities: Tenderness to the left medial malleolus with mild foot and ankle swelling. Motor is intact distally, mild tingling to the lateral toes, normal Medina test, negative Homans test Neurologic: Alert and oriented X 3, normal motor function, normal sensory function, mild tingling to the lateral toes on the left foot Psychologic: Affect normal, judgement normal, mood normal. [] Current Patient Data: Vital Signs: Vital Signs Date Time Temp Pulse Resp B/P (MAP) Pulse Ox O2 Delivery O2 Flow Rate FiO2 10/27/20 13:46 97.9 88 22 166/88 (114) 96 Room Air 97.9 EKG: EKG: [] Radiology/Procedures: Radiology/Procedures: [][facility] [address] [facility] [place], [place] [id number] IMAGING REPORT Signed PATIENT: JARVIS THOMSON ACCOUNT: [id number] : 1945 LOCATION: ER AGE: 75 SEX: F EXAM STATUS: REG ER ORD. PHYSICIAN: AMBER GUADARRAMA MD REASON: FOOT AND ANKLE PAIN S/P FALL 3 MONTHS AGO PROCEDURE: ANKLE LEFT 3V EXAM: AP, oblique and lateral views left foot AP, oblique and lateral views left ankle DATE: 10/27/2020 2:20 PM INDICATION: Reason: FOOT AND ANKLE PAIN S/P FALL 3 MONTHS AGO / Spl. Instructions: / History: COMPARISON: No Prior FINDINGS: Nearly healed base of fifth metatarsal fracture, stable in alignment. Old/likely healed fracture at the lower pole of the lateral malleolus. Marked osteopenia limits evaluation for acute fracture. No definite new fracture is identified. Changes of prior hallux valgus surgery. Prominent midfoot degenerative changes are seen. Small plantar calcaneal enthesophyte. Forefoot and midfoot soft tissue swelling. Ankle mortise is congruent. Talar dome is intact. Small plantar calcaneal enthesophyte. Moderate soft tissue swelling about the left ankle. IMPRESSION: 1. Nearly healed base of fifth metatarsal fracture, stable in alignment. 2. Within the constraints of osteopenia, no evidence for acute fracture or dislocation. 3. Soft tissue swelling about the left foot and ankle Electronically signed by: Ángel Kunz MD (10/27/2020 2:51 PM) [facility] DICTATED and SIGNED BY: ÁNGEL KUNZ MD DATE: 10/27/20 [id number] 0 Course & Med Decision Making: Course & Med Decision Making 75-year-old female presents with left medial malleolar pain following an injury 2 months ago. X-ray shows a healing fracture to the proximal fifth metatarsal. I discussed with the patient immobilization, she says she has a boot already. Patient has appoint with Dr. Marquez and 8 days. I instructed she will need to follow-up with him for that. Patient states she already has pain medicine at home. Pertinent Labs and Imaging studies reviewed. (See chart for details) [] Dragon Disclaimer: Draglonnie Disclaimer: This electronic medical record was generated, in whole or in part, using a voice recognition dictation system. Departure Departure Impression: Primary Impression: Left ankle pain Disposition: 01 DC HOME SELF CARE/HOMELESS Referrals: MARLA MARTINEZ MD (PCP) ONOFRE MARQUEZ MD As scheduled Patient Instructions: Ankle Dislocation, [id number], Ankle Pain Additional Instructions: EMERGENCY DEPARTMENT GENERAL DISCHARGE INSTRUCTIONS THANK YOU for coming to [facility] Emergency Department (ED) today and trusting us with your care. We trust that you had a positive experience in our Emergency Department. If you wish to speak to the department Management you can contact the making department preparer at . YOUR FOLLOW UP INSTRUCTIONS ARE FOLLOWS: Do you have a private doctor? If you do not have a private doctor, please ask for a resource list of physicians or clinics that may be able to assist you with follow up care. The Emergency Physician has interpreted your x-rays. The X-ray specialist will also review them. If there is a change in the findings you will be notified in 48 hours when at all possible. A lab test or lab culture may have been done, your results will be reviewed and you will be notified if you need a change in treatment. ADDITIONAL INSTRUCTIONS AND INFORMATION Your care today has been supervised by a physician who is specially trained in emergency care. Many problems require more than one evaluation for a complete diagnosis and treatment. We recommend that you schedule your follow up appointment as recommended to ensure complete treatment of your illness or injury. If you are unable to obtain follow up care and continue to have a problem, or if your condition worsens we recommend that you return to the ED. We are not able to safely determine your condition over the phone nor are we able to give sound medical advice over the phone. For these safety reasons, if you call for medical advice we will ask you to come to the ED for further evaluation If you have any questions regarding these discharge instructions please call the ED at . SAFETY INFORMATION In the interest of safety, wellness, and injury prevention; we encourage you to wear your seatbelt, if you smoke; quit smoking, and we encourage your family to use protective helmet for bicycling and other sporting events that present an increased risk for head injury. IF YOUR SYMPTOMS WORSEN OR NEW SYMPTOMS DEVELOP, OR YOU HAVE CONCERNS ABOUT YOUR CONDITION; OR IF YOUR CONDITION WORSENS WHILE YOU ARE WAITING FOR YOUR FOLLOW UP APPOINTMENT; EITHER CONTACT YOUR PRIMARY CARE DOCTOR, THE PHYSICIAN WHOSE NAME AND NUMBER YOU WERE GIVEN, OR RETURN TO THE ED IMMEDIATELY. AMBER GUADARRAMA MD Oct 27, 2020 14:39
--- NOTE | 2020-10-27 14:54 | RAD ---
EXAM: AP, oblique and lateral views left foot AP, oblique and lateral views left ankle DATE: 10/27/2020 2:20 PM INDICATION: Reason: FOOT AND ANKLE PAIN S/P FALL 3 MONTHS AGO / Spl. Instructions: / History: COMPARISON: No Prior FINDINGS: Nearly healed base of fifth metatarsal fracture, stable in alignment. Old/likely healed fracture at the lower pole of the lateral malleolus. Marked osteopenia limits evaluation for acute fracture. No definite new fracture is identified. Changes of prior hallux valgus surgery. Prominent midfoot degenerative changes are seen. Small plantar calcaneal enthesophyte. Forefoot and midfoot soft tissue swelling. Ankle mortise is congruent. Talar dome is intact. Small plantar calcaneal enthesophyte. Moderate soft tissue swelling about the left ankle. IMPRESSION: 1. Nearly healed base of fifth metatarsal fracture, stable in alignment. 2. Within the constraints of osteopenia, no evidence for acute fracture or dislocation. 3. Soft tissue swelling about the left foot and ankle Electronically signed by: Ángel Virgen MD (10/27/2020 2:51 PM) UZIEL
== END 2020-10-27 15:17 | disposition home or self-care (01) ==
LOC: ER 12:27
DX: M25.572 Pain in left ankle and joints of left foot (principal); G89.29 Other chronic pain; F17.200 Nicotine dependence, unspecified, uncomplicated; Z91.041 Radiographic dye allergy status
CPT/HCPCS: 73610; 73630; 99284

== ENCOUNTER → 2021-03-18 | Outpatient (CLI) | payer MEDICARE, BC ==
[2021-03-18 14:18] LABS: BASE EXCESS ABG 5 mmol/L (-3-3); HCO3 ABG 30 mmol/L (21-28); PCO2 ABG 48 mmHg (35-46); PO2 ABG 58 mmHg (65-108); SAT O2 ABG 91 % (92-99)
[2021-03-18 14:21] LABS: FIO2 ABG 21
== END ==
LOC: RT 11:42
PROVIDERS: ATTEND Internal Medicine Pulmonary Disease
DX: J44.1 Chronic obstructive pulmonary disease with (acute) exacerbation (principal)
CPT/HCPCS: 82805

== ENCOUNTER 2021-06-26 15:58 | Inpatient (IN) | payer MEDICARE, BC ==
[~2021-06-26] VITALS: Ht 157.5 cm; Wt 69.5 kg
[2021-06-26] MEDS ORDERED: KETOROLAC 30 MG/ML VIAL. IVP ONE (17:30)
[2021-06-26] MEDS ORDERED: ONDANSETRON PF 4 MG/2 ML VIAL. IVP ONE (17:30)
[2021-06-26] MEDS ORDERED: MORPHINE SULFATE 4 MG/ML INJ. IVP ONE (17:30)
[2021-06-26] MEDS ORDERED: IV NORMAL SALINE 1000ML BAG 1,000 ML IV ONE (17:30)
--- NOTE | 2021-06-26 17:51 | PHYS DOC ---
Past Medical History Past Medical History: Other Additional Past Medical Histor: CHRONIC BACK PAIN (SALVATORE MAK DO) Past Surgical History: Hysterectomy, Tonsillectomy, Other Additional Past Surgical Histo: SPINAL STIMULATOR, HIP SX, SHOULDER SX (SALVATORE MAK DO) Smoking Status: Current Every Day Smoker Alcohol Use: None Drug Use: None (SALVATORE MAK DO) General Adult EDM: Chief Complaint: ABDOMINAL PAIN HPI: HPI: Patient is a 76 year old female who present to ER for evaluation of left-sided flank pain started this morning when she woke up. Patient has history of chronic back pain, she had pain PUMP. She is on oxycodone for pain control. Lately her pain has not been under control so she was seen by a pain doctor yesterday, had epidural injection in her lumbar spine. Patient woke up this morning with left flank pain that radiated down to the left groin area. Patient said the pain is more severe and different than her chronic back pain. Patient stated that she has history of kidney stones in the past, had stent placed in her left ureter in the past. Patient denies any urinary symptoms, no cough, no fever, no nausea vomiting, no blood in the urine. (SALVATORE MAK DO) Review of Systems: Review of Systems: Constitutional: Denies fever or chills. [] Eyes: Denies change in visual acuity. [] HENT: Denies nasal congestion or sore throat. [] Respiratory: Denies cough or shortness of breath. [] Cardiovascular: Denies chest pain or edema. [] GI: Positive for left side flank pain, no nausea vomiting, no diarrhea : Denies dysuria. [] Musculoskeletal: Denies back pain or joint pain. [] Integument: Denies rash. [] Neurologic: Denies headache, focal weakness or sensory changes. [] Endocrine: Denies polyuria or polydipsia. [] Lymphatic: Denies swollen glands. [] Psychiatric: Denies depression or anxiety. [] (SALVATORE MAK DO) Heart Score: C/O Chest Pain: N/A Risk Factors: Risk Factors: DM, Current or recent (<one month) smoker, HTN, HLP, family history of CAD, obesity. Risk Scores: Score 0 - 3: 2.5% MACE over next 6 weeks - Discharge Home Score 4 - 6: 20.3% MACE over next 6 weeks - Admit for Clinical Observation Score 7 - 10: 72.7% MACE over next 6 weeks - Early Invasive Strategies (SALVATORE MAK DO) Current Medications: Current Medications Medications (Trade) Dose Ordered Sig/Pedro Start Time Stop Time Status Last Admin Dose Admin Ketorolac Tromethamine (Toradol 30mg Vial) 30 mg 1X ONCE 06/26/21 17:30 06/26/21 17:33 DC Morphine Sulfate (Morphine Sulfate) 4 mg 1X ONCE 06/26/21 17:30 06/26/21 17:33 DC Ondansetron HCl (Zofran) 4 mg 1X ONCE 06/26/21 17:30 06/26/21 17:33 DC Sodium Chloride 1,000 ml @ 1,000 mls/hr 1X ONCE 06/26/21 17:30 06/26/21 18:29 (SALVATORE MAK DO) Allergies: Allergies: Allergies Coded Allergies Type Severity Reaction Last Updated Verified Iodinated Contrast Media Adverse Reaction Severe SEIZURES 05/22/20 Yes (SALVATORE MAK DO) Physical Exam: PE: Constitutional: Well developed, well nourished, mild acute distress due to pain, non-toxic appearance. [] HENT: Normocephalic, atraumatic, bilateral external ears normal, oropharynx moist, no oral exudates, nose normal. [] Eyes: PERRLA, EOMI, conjunctiva normal, no discharge. [] Neck: Normal range of motion, no tenderness, supple, no stridor. [] Cardiovascular:Heart rate regular rhythm, no murmur [] Lungs & Thorax: Bilateral breath sounds clear to auscultation [] Abdomen: Bowel sounds normal, soft, no tenderness, no masses, no pulsatile masses. [] Skin: Warm, dry, no erythema, no rash. [] Back: No tenderness, there is left CVA tenderness to palpation Extremities: No tenderness, no cyanosis, no clubbing, ROM intact, no edema. [] Neurologic: Alert and oriented X 3, normal motor function, normal sensory function, no focal deficits noted. [] Psychologic: Affect normal, judgement normal, mood normal. [] (SLAVATORE MAK DO) Current Patient Data: Vital Signs: Vital Signs Date Time Temp Pulse Resp B/P (MAP) Pulse Ox O2 Delivery O2 Flow Rate FiO2 8/7/21 16:53 98.2 89 12 194/88 (114) 98 Room Air 98.2 (SALVATORE AMK DO) EKG: EKG: [] (SALVATORE MAK DO) Radiology/Procedures: Radiology/Procedures: [] (SALVATORE MAK DO) Radiology/Procedures: PROCEDURE: CT ABDOMEN PELVIS WO CONTRAST EXAM: CT Abdomen and Pelvis without IV contrast CLINICAL HISTORY: LEFT FLANK PAIN COMPARISON: none TECHNIQUE: Helical CT of the abdomen and pelvis without intravenous contrast. Ax ial, coronal and sagittal reformatted images were generated. PQRS compliance statement - One or more of the following individualized dose reduction techniques were utilized for this study: 1. Automated exposure control 2. Adjustment of the mA and/or kV according to patient size 3. Use of iterative reconstruction technique FINDINGS: Lack of intravenous contrast limits evaluation of solid organs, vasculature, and lymph nodes. Lower chest: Emphysematous changes are seen in the lung bases. Abdomen and Pelvis: Moderate hiatal hernia. No focal liver lesion. Spleen is unremarkable. Adrenal glands are normal. Right lower pole renal cyst is seen. No renal tract calculus. Hypodense left lower pole renal lesion is too small to accurately characterize but likely cystic as well. No hydronephrosis. No hydroureter. Bladder is unremarkable. Appendix is normal. Moderate to large volume colonic stool content is seen. No small or large bowel dilatation. No bowel obstruction. Colonic diverticula are seen. No evidence for acute diverticulitis. There is been a hysterectomy. Abdominal aortic aneurysm measures 5.2 cm in AP dimension. Bones: Bilateral hip joint osteoarthritis. Rightward curvature of the lumbar spine. Chronic post surgical changes right greater trochanter. Symphysis pubis degenerative changes are seen. IMPRESSION: 1. Infrarenal abdominal aortic aneurysm measuring up to 5.2 cm. Given size, surgical evaluation is recommended. 2. Moderate to large volume colonic stool content, can be correlated for possi ble constipation. No bowel obstruction. 3. Moderate hiatal hernia. Electronically signed by: Ángel Virgen MD (06/26/2021 6:31 PM) (JALEN MCCONNELL DO) Course & Med Decision Making: Course & Med Decision Making Pertinent Labs and Imaging studies reviewed. (See chart for details) Patient is a 76-year-old male who present to ER due to left-sided flank pain, patient has history of chronic back pain, also history of kidney stone in the past. The pain is more severe and different in nature . Patient did have an epidural injection yesterday for her chronic low back pain. Due to the severe severity of the pain, and history of kidney stone, will work-up to evaluate for kidney stone with CT scan of abdomen pelvis without contrast, CBC , electrolyte panel, UA. Patient will be given pain medication IV, IV fluids, IV nausea medication. Patient's care has been transferred to the incoming physician at shift change Dr. Jalen Mcconnell, pending labs and CT scan of her abdomen and pelvic. (SALVATORE MAK DO) Course & Med Decision Making I took over care of this patient at [address] Mak, pending CT scan 1845: I reviewed the CT radiologist read and images. Patient has a 5.2 cm abdominal aortic aneurysm without evidence for rupture or leak. Patient is hemodynamically stable. I went over the results with the patient. Patient was placed on the nuclear monitoring technician 1850: I discussed the case with vascular surgeon Dr. Medrano, who recommends admission to this hospital, he will consult in the morning and he will review the images tonight. I let him know patients symptoms including flank pain. No further imaging per vascular surgeon. Patient will be admitted to the patient's primary care physician Dr. Marla Martinez whom I discussed the case at 1909. Critical care time was 35 minutes which includes time at bedside, spent in d iscussion of patient's care with specialists and/or family members, with interpretation of laboratory and/or radiological studies and is exclusive of procedures. (JALEN MCCONNELL DO) Dragon Disclaimer: Dragon Disclaimer: This electronic medical record was generated, in whole or in part, using a voice recognition dictation system. (SALVATORE MAK DO) Departure Departure Impression: Primary Impression: Abdominal aortic aneurysm (AAA) greater than 5.0 cm in diameter in female Disposition: ADMITTED INPATIENT Admitting Physician: Marla Martinez (JALEN MCCONNELL DO) Condition: STABLE Referrals: MARLA MARTINEZ MD (PCP) SALVATORE MAK DO Jun 26, 2021 17:51 JALEN MCCONNELL DO Jun 26, 2021 18:51
[2021-06-26 17:52] LABS: BASO # 0.1 x10^3/uL (0.0-0.2); BASO % 1 % (0-3); EOS % 1 % (0-3); HEMATOCRIT 30.6 % (36.0-47.0); HEMOGLOBIN 9.8 g/dL (12.0-15.5); LYMPH # 2.4 x10^3/uL (1.0-4.8); LYMPH % 24 % (24-48); MEAN CORPUSCULAR HEMOGLOBIN 27 pg (25-35); MEAN CORPUSCULAR HGB CONC 32 g/dL (31-37); MEAN CORPUSCULAR VOLUME 83 fL (79-100); MONO # 1.1 x10^3/uL (0.0-1.1); MONO % 11 % (0-9); NEUT # 6.4 x10^3/uL (1.8-7.7); NEUT % 63 % (31-73); PLATELET COUNT 219 x10^3/uL (140-400); RED CELL DISTRIBUTION WIDTH 15.5 % (11.5-14.5); WHITE BLOOD COUNT 10.1 x10^3/uL (4.0-11.0)
[2021-06-26 17:53] LABS: BILIRUBIN,URINE NEGATIVE (NEG); CLARITY,URINE CLEAR; COLOR,URINE YELLOW; NITRITE,URINE NEGATIVE (NEG); PH,URINE 6.5 (<5.0-8.0); PROTEIN,URINE NEGATIVE (NEG-TRACE); UROBILINOGEN,URINE 0.2 mg/dL (0.2 mg/dL)
[2021-06-26 17:59] LABS: CALCIUM 8.8 mg/dL (8.5-10.1); GFR 53.6
[2021-06-26 18:05] LABS: ALBUMIN 3.8 g/dL (3.4-5.0); ALBUMIN/GLOBULIN RATIO 1.1 (1.0-1.7); MAGNESIUM 2.2 mg/dL (1.8-2.4); TOTAL BILIRUBIN 0.2 mg/dL (0.2-1.0); TOTAL PROTEIN 7.4 g/dL (6.4-8.2)
[2021-06-26 18:10] LABS: BACTERIA,URINE 0 /HPF (0-FEW); RBC,URINE 0 /HPF (0-2); WBC,URINE 0 /HPF (0-4)
--- NOTE | 2021-06-26 18:33 | RAD ---
EXAM: CT Abdomen and Pelvis without IV contrast CLINICAL HISTORY: LEFT FLANK PAIN COMPARISON: none TECHNIQUE: Helical CT of the abdomen and pelvis without intravenous contrast. Axial, coronal and sagi ttal reformatted images were generated. PQRS compliance statement - One or more of the following individualized dose reduction techniques wer e utilized for this study: 1. Automated exposure control 2. Adjustment of the mA and/or kV according to patient size 3. Use of iterative reconstruction technique FINDINGS: Lack of intravenous contrast limits evaluation of solid organs, vasculature, and lymph nodes. Lower chest: Emphysematous changes are seen in the lung bases. Abdomen and Pelvis: Moderate hiatal hernia. No focal liver lesion. Spleen is unremarkable. Adrenal glands are normal. Rig ht lower pole renal cyst is seen. No renal tract calculus. Hypodense left lower pole renal lesion is too small to accurately characterize but likely cystic as well. No hydronephrosis. No hydroureter. Bl adder is unremarkable. Appendix is normal. Moderate to large volume colonic stool content is seen. No small or large bowel dilatation. No bowel obstruction. Colonic diverticula are seen. No evidence for acute diverticulitis. There is been a hysterectomy. Abdominal aortic aneurysm measures 5.2 cm in AP dimension. Bones: Bilateral hip joint osteoarthritis. Rightward curvature of the lumbar spine. Chronic post surgical ch anges right greater trochanter. Symphysis pubis degenerative changes are seen. IMPRESSION: 1. Infrarenal abdominal aortic aneurysm measuring up to 5.2 cm. Given size, surgical evaluation is r ecommended. 2. Moderate to large volume colonic stool content, can be correlated for possible constipation. No b owel obstruction. 3. Moderate hiatal hernia. Electronically signed by: Ángel Virgen MD (06/26/2021 6:31 PM) UZIEL
[2021-06-26 21:40] VITALS: BP 167/80
[2021-06-26] MEDS ORDERED: oxyCODONE/APAP 10/325 1 TAB TABLET PO PRN (23:00)
[2021-06-27 03:05] VITALS: BP 173/81
[2021-06-27] MEDS ORDERED: ALBUTEROL SULFATE 2.5 MG/3 ML NEBU. NEB ONE (04:15)
[2021-06-27 07:45] VITALS: BP 155/66
[2021-06-27] MEDS: oxyCODONE/APAP 10/325 1 TAB TABLET PO PRN ×2 (08:48→21:30)
[2021-06-27] MEDS: ALPRAZolam 0.5 MG TABLET PO SCH ×2 (08:49→21:24)
[2021-06-27] MEDS: PANTOPRAZOLE 40 MG TABLET.DR. PO SCH (08:49)
[2021-06-27] MEDS: tiZANidine 4 MG TABLET. PO SCH ×2 (08:49→21:24)
[2021-06-27] MEDS: GABAPENTIN 300 MG CAPSULE. PO SCH ×3 (08:49→21:24)
[2021-06-27] MEDS: PRAMIPEXOLE 0.25 MG TABLET. PO SCH (08:49)
[2021-06-27] MEDS: CHOLECALCIFEROL (VITAMIN D3) 1,000 UNIT TABLET PO SCH (08:50)
[2021-06-27] MEDS: hydroCHLOROthiazide 12.5 MG CAPSULE PO SCH (08:50)
[2021-06-27] MEDS: LOSARTAN POTASSIUM 50 MG TABLET. PO SCH (08:50)
[2021-06-27] MEDS ORDERED: LOSARTAN POTASSIUM 25 MG TABLET. PO SCH (09:00)
[2021-06-27 09:09] LABS: BASO % 0 % (0-3); EOS # 0.2 x10^3/uL (0.0-0.7); EOS % 2 % (0-3); HEMATOCRIT 31.7 % (36.0-47.0); HEMOGLOBIN 9.9 g/dL (12.0-15.5); LYMPH # 1.8 x10^3/uL (1.0-4.8); LYMPH % 18 % (24-48); MEAN CORPUSCULAR HEMOGLOBIN 26 pg (25-35); MEAN CORPUSCULAR HGB CONC 31 g/dL (31-37); MEAN CORPUSCULAR VOLUME 83 fL (79-100); MONO # 0.9 x10^3/uL (0.0-1.1); MONO % 9 % (0-9); NEUT # 6.9 x10^3/uL (1.8-7.7); NEUT % 71 % (31-73); PLATELET COUNT 204 x10^3/uL (140-400); RED BLOOD COUNT 3.81 x10^6/uL (3.50-5.40); RED CELL DISTRIBUTION WIDTH 15.8 % (11.5-14.5); WHITE BLOOD COUNT 9.8 x10^3/uL (4.0-11.0)
[2021-06-27 09:30] LABS: CALCIUM 8.4 mg/dL (8.5-10.1); CREATININE 0.9 mg/dL (0.6-1.0); GFR 60.6; POTASSIUM 4.5 mmol/L (3.5-5.1)
--- NOTE | 2021-06-27 10:24 | PDOC ---
Provider Note Date of Service: DATE: 06/27/21 TIME: 10:19 Provider Note Imp: 1. AAA, juxtarenal, 5.2 cm, not ruptured and unlikely to be the cause of her left flank and rib pain 2. severe respiratory insufficiency. Hx of Covid, tobaccoism; requires home oxygen 3. severe constipation 4. severe degenerative disc disease requiring nerve stimulator and chronic pain medication. Rec: 1. pulmonary evaulation to assess risk of performing open AAA repair. She appears to me to be high risk and observation is probably the best course for her. 2. pain management Justifications for Admission Other Justification KATTY WESLEY II, MD Jun 27, 2021 10:24
--- NOTE | 2021-06-27 11:16 | CONS ---
DATE OF CONSULTATION: 06/27/2021 PULMONARY CONSULTATION ATTENDING PHYSICIAN: Viral Resendiz MD. REASON FOR CONSULTATION: Preop clearance. HISTORY OF PRESENT ILLNESS: The patient is a 76-year-old who has a history of tobacco use for 30+ years. She still smokes. She is on home oxygen 2.5 liters on an as needed basis. She was brought into the hospital with complaint of some pain in her lower back and left flank area. The patient underwent imaging study, which was done here and reviewed by me. There is a 5.2 cm abdominal aortic aneurysm. There is no infiltrate seen on the lower part of the lungs. There is moderate hiatal hernia. She is currently on oxygen at 3 liters. Her baseline is 2.5 liters. Room air sats were 88%. She has an occasional cough. No increased shortness of breath, no chest pain. No nausea, vomiting or diarrhea. She is updated on COVID vaccine 2 months ago and her rapid COVID test is negative. PAST MEDICAL HISTORY: Significant for suspected COPD, on home oxygen 2.5 liters. Chronic back pain. PAST SURGICAL HISTORY: Hysterectomy, tonsillectomy, spinal stimulator and shoulder surgery. SOCIAL HISTORY: Smoker for 30 years. She still smokes. REVIEW OF SYSTEMS: A 12-point system obtained. Pertinent positives discussed in my present illness, otherwise noncontributory. All systems that were negative were reviewed as well. MEDICATIONS: Reviewed as listed in the [facility]. FAMILY HISTORY: Noncontributory to lungs. PHYSICAL EXAMINATION: VITAL SIGNS: Blood pressure is stable, afebrile, pulse ox 91% on 3 liters. NECK: Supple. LUNGS: With diminished breath sounds. CARDIOVASCULAR: With a regular rate. ABDOMEN: Soft. EXTREMITIES: With no pitting edema. LABORATORY DATA: Reviewed. Rapid COVID is negative. Sodium 143, BUN and creatinine normal. White cell count 9.8. IMPRESSION: 1. The patient with underlying chronic obstructive pulmonary disease. She is normally on 2.5 liters of oxygen, currently 3 liters. Overall, pulmonary status is stable. However, she has ongoing tobaccoism for last 30 years. 2. The patient updated on COVID vaccine 2 months ago. Her current rapid COVID test is negative. There are no infiltrate seen on the lower part of the lungs on CT abdomen. 3. A 5.2 cm abdominal aortic aneurysm. RECOMMENDATIONS: 1. I have discussed with the patient and RN. From a pulmonary standpoint, the benefits of surgery exceeds the risk. I did strongly emphasize the importance of quitting tobacco. If surgery is not done during this hospitalization, then I would recommend staying off tobacco for at least 2 weeks prior to surgery. 2. PFTs as an outpatient. She sees my partner, Dr. Salgado. 3. Add bronchodilators, DuoNebs. 4. Follow Vascular Surgery recommendations. We will be available for any further recommendations. Otherwise, we will see her p.r.n. JODI/RM DR: Felecia TID: [id number]
[2021-06-27 11:45] VITALS: BP 121/68
--- NOTE | 2021-06-27 12:55 | HP ---
ADMIT DATE: 06/27/2021 LOCATION: She is in room 584. SUBJECTIVE: This 76-year-old female presented to the emergency room with left-sided rib and flank pain. In the morning when she woke up, by history, she states that she has been hurting in her chest wall for the last month or so, starting on the right and worse on the left now. She states it hurts with a breath or cough. She denies any kind of injury to precipitate this. She does have chronic back pain with pain pump in place. She did have an epidural done the day prior to admission in the [facility]. She does have a history of kidney stones, but this is different than that over her chronic back pain. PAST MEDICAL HISTORY: Remarkable for chronic back pain. She has a history of hypertension, GERD, anxiety. PAST SURGICAL HISTORY: Remarkable for hysterectomy, tonsillectomy, spinal stimulator pain pump, prior shoulder surgery. SOCIAL HISTORY: She is , 59 years. Lives at home with her . Current every day smoker, does not use alcohol or drugs. FAMILY HISTORY: Noncontributory. MEDICATIONS: Brought with the patient, listed on the computer, have been addressed. ALLERGIES: SHE IS ALLERGIC TO IODINE. REVIEW OF SYSTEMS: As mentioned above. PHYSICAL EXAMINATION: GENERAL: She is a well-developed, well-nourished, pleasant white female and currently in mild amount of pain and feels like it is somewhat improved from the time of admission. Her is at the bedside. VITAL SIGNS: Reveal elevated blood pressure since admission, but improving and we will not add any other medicines yet at this point. HEAD, EYES, EARS, NOSE AND THROAT: Unremarkable. CHEST: Clear to auscultation and percussion. HEART: Regular rate and rhythm without S3, S4 or murmur. ABDOMEN: Soft, nontender, without hepatosplenomegaly or masses. EXTREMITIES: Without cyanosis, clubbing, edema. NEUROLOGIC: She is intact. She does have localized pain in her lower lateral left rib cage that is reproducible with pressure, suggesting chest wall as the etiology of her pain. DIAGNOSTIC DATA: CT scanning of the abdomen and pelvis on admission shows evidence of emphysematous changes in the lung bases and a 5.2 cm abdominal aortic aneurysm, which is an incidental finding regarding her reason for coming to the emergency room. IMPRESSION: 1. Left chest wall pain. 2. Abdominal aortic aneurysm. 3. Chronic obstructive pulmonary disease. 4. Chronic back pain. 5. Hypertension. PLAN: Observe blood pressures. Pulmonary and vascular surgery consults. We will start Celebrex for the pain, will get plain films of the ribs and would expect relatively rapid discharge as soon as tomorrow assuming nothing untoward is found. [facility]U/JESSIE/[facility] [place] DR: Dora TID: [id number] CC: MARLA MARTINEZ MD
[2021-06-27] MEDS: CELECOXIB 100 MG CAPSULE. PO SCH ×2 (13:19→21:24)
--- NOTE | 2021-06-27 13:40 | RAD ---
Exam:Left ribs with PA chest Date: 06/27/2021 11:36 AM Comparison: No prior Indication: Reason: left chest wall tenderness / Spl. Instructions: / History: Findings/ Impression: The heart is not enlarged. Mediastinal and hilar contours are normal. No focal parenchymal airspace o pacity. Small bilateral pleural effusions. No pneumothorax. AP, Oblique and Spot images of the bilateral ribs demonstrated acute nondisplaced fractures of the le ft eighth and 10th ribs laterally. Acute fracture of the anterolateral right ninth rib is also seen. Symmetrical intercostal spacing. Electronically signed by: Ángel Virgen MD (06/27/2021 1:37 PM) UZIEL
[2021-06-27] MEDS: IPRATRPIUM/ALBUTEROL 0.5/2.5MG 3 ML NEBU. NEB SCH ×2 (13:56→20:46)
[2021-06-27 15:50] VITALS: BP 121/54
[2021-06-27] MEDS ORDERED: ALPRAZolam 0.5 MG TABLET PO PRN (17:15)
[2021-06-27 18:49] VITALS: BP 107/56
--- NOTE | 2021-06-27 21:26 | CONS ---
DATE OF CONSULTATION: 06/27/2021 VASCULAR SURGERY CONSULTATION CLINICAL HISTORY: This is a 76-year-old female who presented to the emergency room last evening for complaints of left flank pain. She has a history of severe degenerative disk disease, in fact has a pain stimulator and nerve stimulator and has been on oxycodone type medication for the past year. This pain however is little bit different. She underwent a CT scan with contrast, not a CT angiogram, that revealed an infrarenal abdominal aortic aneurysm without evidence of rupture. The aneurysm is not in proximity to the flank area and upper rib area where the patient is having her complaints. It measures 5.2 cm. Of note, the aneurysm is a juxtarenal type and therefore, patient is not likely a candidate for endograft repair. Currently, the patient is still having some left flank and upper rib type discomfort. She has a history of COVID infection, which she contracted about a year ago and has been requiring home oxygen since then. She is a longtime smoker, but trying to stop. She has no history of stroke or coronary artery disease. PAST MEDICAL HISTORY: Significant for tobaccoism and chronic respiratory insufficiency. Again, due to COVID-19 infection one year ago. MEDICATIONS: Reviewed and are currently include Toradol. ALLERGIES: INCLUDE IODINATED CONTRAST MATERIAL; however, she did undergo a CT scan with contrast without any issues yesterday. REVIEW OF SYSTEMS: Twelve-point review of systems significant only for dyspnea on exertion and left flank and upper rib pain as mentioned. Otherwise, a 12-point review of systems is negative. PHYSICAL EXAMINATION: VITAL SIGNS: 170/80, heart rate is 90. She is afebrile. NECK: Carotids are 2+ without audible bruit. HEART: Tones are normal. CHEST: She has audible wheezing and some rales in the bases. ABDOMEN: She has a palpable epigastric mass, which is nontender. EXTREMITIES: She has easily palpable brachial, radial, femoral, popliteal, and pedal pulses. There is no edema. There are no skin changes. NEUROLOGIC: Intact with no focal deficits. DIAGNOSTIC DATA: CT scan again shows a juxtarenal abdominal aortic aneurysm without evidence of rupture. It is 5.2 cm in diameter. She is also probably constipated as she has stool throughout her colon. This may be one of the causes for her left upper quadrant type discomfort. X-ray reveals some emphysematous changes seen in the lung bases. LABORATORY DATA: Creatinine is normal and hemoglobin is 9. IMPRESSION: 1. Juxtarenal abdominal aortic aneurysm without rupture, measuring 5.2 cm. 2. She apparently has a large volume of colonic stool and may indeed be constipated, which she also could be the cause for her symptoms. 3. Respiratory compromise requiring home oxygen and history of COVID infection and compounded by continued smoking. 4. No history of coronary artery disease or stroke. RECOMMENDATION: 1. It is my feeling that the patient is high risk for an open abdominal aortic aneurysm repair because of her respiratory issues. Prior to making that recommendation, I suggest that we obtain pulmonary consultation to assess her risks. If she passes from that standpoint, then I recommend cardiac evaluation and then a CT angiogram of the abdomen and pelvis. 2. Continue pain medication and treatment for constipation/obstipation. We will plan to follow and make further recommendations after pulmonary evaluation and recommendations. ABRAN MELVIN: Irma TID: [id number]
[2021-06-27 23:14] VITALS: BP 124/76
[2021-06-28 03:09] VITALS: BP 151/71
[2021-06-28 07:38] VITALS: BP 136/75
[2021-06-28] MEDS ORDERED: MAGNESIUM CITRATE 296 ML SOLUTION. PO ONE (08:00)
[2021-06-28] MEDS: IPRATRPIUM/ALBUTEROL 0.5/2.5MG 3 ML NEBU. NEB SCH ×4 (08:06→20:23)
--- NOTE | 2021-06-28 08:24 | PDOC ---
Provider Note Date of Service: DATE: 06/28/21 TIME: 08:23 Provider Note has 2 L rib fx and 1 on R- ecent mild trauma may be cause, could complicate pulm status- add mag citrate re constipation, surg planning pending Justifications for Admission Other Justification MARLA MARTINEZ MD Jun 28, 2021 08:24
[2021-06-28] MEDS: hydroCHLOROthiazide 12.5 MG CAPSULE PO SCH (09:41)
[2021-06-28] MEDS: tiZANidine 4 MG TABLET. PO SCH ×2 (09:41→22:35)
[2021-06-28] MEDS: CELECOXIB 100 MG CAPSULE. PO SCH ×2 (09:41→22:35)
[2021-06-28] MEDS: PANTOPRAZOLE 40 MG TABLET.DR. PO SCH (09:41)
[2021-06-28] MEDS: GABAPENTIN 300 MG CAPSULE. PO SCH ×3 (09:41→22:35)
[2021-06-28] MEDS: PRAMIPEXOLE 0.25 MG TABLET. PO SCH (09:41)
[2021-06-28] MEDS: CHOLECALCIFEROL (VITAMIN D3) 1,000 UNIT TABLET PO SCH (09:41)
[2021-06-28] MEDS: LOSARTAN POTASSIUM 50 MG TABLET. PO SCH (09:47)
[2021-06-28] MEDS: ALPRAZolam 0.5 MG TABLET PO SCH ×2 (09:49→22:35)
--- NOTE | 2021-06-28 10:43 | NUR ---
assumed care for this patient at 0900. Isabel sheffield and Desiree stewardess supervisor are responsible for the tele on this patient.
[2021-06-28 11:23] VITALS: BP 116/58
--- NOTE | 2021-06-28 11:30 | PDOC2 ---
MELANIE CLEMONS INTERNET MARKETING CONSULTANT 06/28/21 1130: CARDIAC CONSULT DATE OF CONSULT Date of Consult DATE: 06/28/21 TIME: 11:18 REASON FOR CONSULT Reason for Consult: pre-op eval REFERRING PHYSICIAN Referring Physician: Dr. Salazar SOURCE Source: Chart review, Patient HISTORY OF PRESENT ILLNESS HISTORY OF PRESENT ILLNESS This is a 76 yo female who presented secondary to left flank pain and rib pain. Further imagining was notable for infrarenal abdominal aortic aneurysm measuring up to 5.2 cm. Cardiology consult was obtained for pre-op evaluation. Rib xray notable for acute nondisplaced fractures of the left eighth and 10th ribs laterally and acute fracture of the anterolateral right ninth rib. She denies any dizziness, diaphoresis, central chest pain/pressure, or shortness of breath. No history of CAD or stroke. No recent cardiac workup. Reports having stress test multiple years ago. Has a history of chronic back pain s/p nerve stimulator and morphine pain pump. PAST MEDICAL HISTORY Cardiovascular: HTN Pulmonary: COPD Psych: Anxiety Musculoskeletal: low back pain, Osteoarthritis PAST SURGICAL HISTORY Past Surgical History spinal stimulator pain pump shoulder surgery. Past Surgical History: Tonsillectomy, Hysterectomy SOCIAL HISTORY Smoke: <1 pack per day ALCOHOL: none Drugs: None Lives: with Family CURRENT MEDICATIONS CURRENT MEDICATIONS Current Medications Medications (Trade) Dose Ordered Sig/Pedro Route PRN Reason Start Time Stop Time Status Last Admin Dose Admin Albuterol/ Ipratropium (Duoneb) 3 ml RTQID NEB 06/27/21 12:00 06/28/21 08:06 Celecoxib (CeleBREX) 200 mg BID PO 06/27/21 12:00 06/28/21 09:41 Magnesium Citrate (Citroma) 296 ml 1X ONCE PO 06/28/21 08:00 06/28/21 08:01 DC 06/28/21 08:00 ALLERGIES ALLERGIES: Coded Allergies: Iodinated Contrast Media (Verified Adverse Reaction, Severe, SEIZURES, 05/22/20) ROS Review of System 14 point ROS conducted with pertinent positives noted above in HPI PHYSICAL EXAM General: Alert, Oriented X3, Cooperative, No acute distress Lungs: Clear to auscultation Heart: Regular rate Abdomen: Soft Extremities: No edema, Normal pulses Skin: No significant lesion Neuro: Normal speech, Sensation intact Psych/Mental Status: Mental status NL, Mood NL MUSCULOSKELETAL: Osteoarthritic changes both hands VITALS/I&O VITALS/I&O: Vital Signs Date Time Temp Pulse Resp B/P (MAP) Pulse Ox O2 Delivery O2 Flow Rate FiO2 06/28/21 09:47 101 156/72 06/28/21 09:00 Nasal Cannula 3.0 06/28/21 08:06 93 06/28/21 07:38 96.9 20 96.9 I & O 06/27/21 06/27/21 06/28/21 15:00 23:00 07:00 Intake Total 200 ml Balance 200 ml ASSESSMENT/PLAN ASSESSMENT/PLAN 1. Infrarenal abdominal aortic aneurysm; 5.[address] 2. Rib fractures; non-displaced left 8th and 10th ribs and acute fracture of the anterolateral right 9th rib. 3. Hypertensive urgency; now controlled 4. COPD with continued tobaccoism; discussed/encouraged cessation 5. Chronic back pain s/p nerve stimulator and morphine pain pump Recommendations Echo to assess LV systolic function Lipids Will plan for Lexiscan MPI in am for further risk stratification Supportive care Follow vascular recs AMY RODRIGUEZ MD 06/28/21 1619: CARDIAC CONSULT ASSESSMENT/PLAN ASSESSMENT/PLAN Patient seen and examined I agree with our nurse practitioners assessment and plan. Infrarenal abdominal aortic aneurysm; 5.[address] being evaluated by vascular surgery. Rib fractures; non-displaced left 8th and 10th ribs and acute fracture of the anterolateral right 9th rib. Hypertensive urgency; now controlled. Continuing medical treatment. COPD with continued tobaccoism; discussed/encouraged cessation Chronic back pain s/p nerve stimulator and morphine pain pump Preop cardiac evaluation including echocardiogram today and a Lexiscan MPI tomorrow to check LV function and exclude underlying coronary artery disease with patient's shortness of breath and chest discomfort as above. MELANIE CLEMONS APRN Jun 28, 2021 11:30 AMY RODRIGUEZ MD Jun 28, 2021 16:19
[2021-06-28 12:13] LABS: CHOLESTEROL/HDL RATIO 3.4
--- NOTE | 2021-06-28 13:39 | PDOC ---
Provider Note Date of Service: DATE: 06/28/21 TIME: 13:34 Provider Note Provider Note Vascular 76 year old female with Juxtarenal abdominal aortic aneurysm without rupture, measuring 5.2 cm. Rib fractures. Respiratory compromise requiring home oxygen and history of COVID infection and compounded by continued smoking. Recommend pulmonary and cardiac evaluation. If she passes from that standpoint, we recommend cardiac evaluation and then a CT angiogram of the abdomen and pelvis. Recommend smoking cessation. It is reasonable the patient may discharge when medically stable and follow up as an outpatient with CT angiogram. Images reviewed by Dr. Salazar. Justicifation of Admission Dx: Justifications for Admission: Justification of Admission Dx: FALLON Hines DESIGNER Jun 28, 2021 13:39
--- NOTE | 2021-06-28 14:33 | NUR ---
SW following. Chart reviewed, pt from home with spouse, room air, regular diet. COVID-19 negative. Pulmonology, Vascular and Cardiology following. Awaiting plan of care. SW will continue to follow.
[2021-06-28 15:04] VITALS: BP 139/78
--- NOTE | 2021-06-28 16:47 | CARD ---
MR#: [id number] Date of Study: 06/28/2021 Ordering Physician: MELANIE CLEMONS, Referring Physician: MELANIE CLEMONS, Tech: Clarke Velez RUST APPROVED REPORT EXAM: Two-dimensional and M-mode echocardiogram with Doppler and color Doppler. Other Information Quality : FairHR: 82bpm Rhythm : NSR INDICATION Pre operative eval RISK FACTORS Hypertension Smoking COPD, abdominal aortic aneursym 2D DIMENSIONS Left Atrium(2D)4.0 (1.6-4.0cm)IVSd1.3 (0.7-1.1cm) Aortic Root(2D)3.4 (2.0-3.7cm)LVDd4.8 (3.9-5.9cm) LVOT Diameter2.0 (1.8-2.4cm)PWd1.3 (0.7-1.1cm) LVDs3.1 (2.5-4.0cm)FS (%) 35.7 % SV69.7 mlLVEF(%)65.2 (>50%) Aortic Valve AoV Peak Hossein.140.5cm/sAoV VTI26.1cm AO Peak GR.7.9mmHgLVOT Peak Hossein.87.0cm/s AO Mean GR.4mmHgAVA (VMAX)1.92cm2 AI P 1/2 [id number] Mitral Valve MV E Uwdyfjqe63.8cm/sMV E Peak Gr.3mmHg MV DECEL [id number] A Hbbjnwgq02.7cm/s MV E Mean Gr.1mmHgE/A Ratio0.9 Pulmonary Valve PV Peak Zwjncmty42.4cm/s Tricuspid Valve TR P. Tbswmfvk017wl/sTR Peak Gr.27mmHg LEFT VENTRICLE The left ventricle is normal size. There is mild to moderate concentric left ventricular hypertrophy. The left ventricular systolic function is normal. The ejection fraction is 55-60%. There is normal L V segmental wall motion. Transmitral Doppler flow pattern is Grade I-abnormal relaxation pattern. No left ventricle thrombus noted on this study. There is no ventricular septal defect visualized. There is no left ventricular aneurysm. There is no mass noted in the left ventricle. RIGHT VENTRICLE The right ventricle is normal size. There is normal right ventricular wall thickness. The right ventr icular systolic function is normal. ATRIA The left atrium is moderately dilated. The right atrium size is normal. The interatrial septum is int act with no evidence for an atrial septal defect or patent foramen ovale as noted on 2-D or Doppler i maging. AORTIC VALVE The aortic valve is mildly sclerotic. Doppler and Color Flow revealed mild aortic regurgitation. Ther e is no significant aortic valvular stenosis. There is no aortic valvular vegetation. MITRAL VALVE The mitral valve is normal in structure and function. There is no evidence of mitral valve prolapse. There is no mitral valve stenosis. Doppler and Color-flow revealed mild mitral regurgitation. TRICUSPID VALVE The tricuspid valve is normal in structure and function. Doppler and Color Flow revealed trace to mil d tricuspid regurgitation. There is no tricuspid valve prolapse or vegetation. There is no tricuspid valve stenosis. PULMONIC VALVE The pulmonary valve is normal in structure and function. Doppler and Color Flow revealed no pulmonic valvular regurgitation. There is no pulmonic valvular stenosis. GREAT VESSELS The aortic root is normal in size. The ascending aorta is normal in size. The pulmonary artery is nor mal. The IVC is normal in size and collapses >50% with inspiration. PERICARDIAL EFFUSION There is no pleural effusion. There is no evidence of significant pericardial effusion. Critical Notification Critical Value: No <Conclusion> The left ventricular systolic function is normal. The ejection fraction is 55-60%. There is normal LV segmental wall motion. Transmitral Doppler flow pattern is Grade I-abnormal relaxation pattern. Mild aortic regurgitation. Mild mitral regurgitation. Trace to mild tricuspid regurgitation. There is no evidence of significant pericardial effusion. Signed by : Antonio Dhaliwal, Electronically Approved : 06/28/2021 16:46:59
[2021-06-28 19:57] VITALS: BP 135/65
[2021-06-28] MEDS ORDERED: POLY17PO29 PO (22:29)
[2021-06-28] MEDS: oxyCODONE/APAP 10/325 1 TAB TABLET PO PRN (22:36)
[2021-06-28] MEDS ORDERED: POLYETHYLENE GLYCOL 3350 17 GM PACKET. PO SCH (22:45)
[2021-06-28 23:43] VITALS: BP 152/85
[2021-06-29 03:53] VITALS: BP 118/73
[2021-06-29 07:00] VITALS: BP 132/61
--- NOTE | 2021-06-29 08:09 | PDOC ---
Provider Note Date of Service: DATE: 06/29/21 TIME: 08:07 Provider Note vss, no new sxs- rib fractures discussed , echo all good- for lexiscan today as pre op eval re 5.2 cm AAA Justifications for Admission Other Justification MARLA MARTINEZ MD Jun 29, 2021 08:09
[2021-06-29] MEDS: IPRATRPIUM/ALBUTEROL 0.5/2.5MG 3 ML NEBU. NEB SCH ×3 (08:25→20:00)
[2021-06-29] MEDS ORDERED: POLYETHYLENE GLYCOL 3350 17 GM PACKET. PO SCH ×2 (09:00→21:00)
[2021-06-29] MEDS ORDERED: REGADENOSON 0.4 MG/5 ML DISP.SYRIN. IV ONE (09:30)
--- NOTE | 2021-06-29 10:24 | PDOC ---
PULMONARY PROGRESS NOTES DATE: 06/29/21 TIME: 10:21 Subjective feels better no soa Vitals Vital Signs Date Time Temp Pulse Resp B/P (MAP) Pulse Ox O2 Delivery O2 Flow Rate FiO2 06/29/21 08:26 94 Room Air 06/29/21 07:00 98.2 92 17 132/61 (84) 3.0 98.2 General: Alert, No acute distress Lungs: Clear Cardiovascular: S1, S2 Abdomen: Soft, Non-tender Extremities: No Edema Medications Active Scripts Medications Dose Route/Sig Max Daily Dose Days Date Category Dose Instructions Miralax (Polyethylene Glycol 3350) 17 Gm Powd.pack 1 Packet PO DAILY 2 06/28/21 Reported dissolve in water Prilosec Otc (Omeprazole Magnesium) 20 Mg Tablet.dr 10 Mg PO DAILY 01/25/20 Reported Vitamin D3 (Cholecalciferol (Vitamin D3)) 250 Mcg Tablet 500 Mcg PO DAILY 01/25/20 Reported Percocet 10-325 Mg Tablet (Oxycodone/Acetaminophen) 1 Each Tablet 1.5 Tab PO PRN Q8HRS PRN MDD 4 Tablet(s) 5 01/25/20 Reported Percocet 10-325 Mg Tablet (Oxycodone/Acetaminophen) 1 Each Tablet 1 Tab PO PRN Q6HRS PRN 01/25/20 Reported Losartan-Hctz 50-12.5 Mg Tab (Losartan/Hydrochlorothiazide) 1 Each Tablet 1 Tab PO DAILY 01/25/20 Reported Gabapentin 600 Mg Tablet 600 Mg PO TID 01/25/20 Reported Xanax (Alprazolam) 0.5 Mg Tablet 1 Tab PO BID 01/25/20 Reported Tizanidine Hcl 4 Mg Tablet 1 Tab PO BID 01/25/20 Reported Mirapex (Pramipexole Di-Hcl) 0.25 Mg Tablet 0.5 Mg PO DAILY 1900 01/25/20 Reported Impression . 1. The patient with underlying chronic obstructive pulmonary disease. She is normally on 2.5 liters of oxygen, currently 3 liters. Overall, pulmonary status is stable. However, she has ongoing tobaccoism for last 30 years. 2. The patient updated on COVID vaccine 2 months ago. Her current rapid COVID test is negative. There are no infiltrate seen on the lower part of the lungs on CT abdomen. she had COVID last yr 3. A 5.2 cm abdominal aortic aneurysm. 4. Status post left 8-10th rib fracture without any pneumothorax. Plan . 1. I have discussed with the patient and RN. From a pulmonary standpoint, the benefits of surgery exceeds the risk. I did strongly emphasize the importance of quitting tobacco. If surgery is not done during this hospitalization, then I would recommend staying off tobacco for at least 2 weeks prior to surgery. 2. PFTs as an outpatient. She sees my partner, Dr. Salgado. 3. bronchodilators, DuoNebs. 4. Follow Vascular Surgery recommendations. We will be available for any further recommendations. Otherwise, we will see her p.r.n. AN PRIETO MD Jun 29, 2021 10:24
[2021-06-29 11:00] VITALS: BP 121/65
--- NOTE | 2021-06-29 11:45 | PDOC ---
CARDIO Progress Notes Date and Time Date of Service 06/29/21 Time of Evaluation 1115 Subjective Subjective: No Chest Pain, No shortness of breath, Other (c/o bilateral leg pain ) Vitals Vitals Vital Signs Date Time Temp Pulse Resp B/P (MAP) Pulse Ox O2 Delivery O2 Flow Rate FiO2 06/29/21 08:26 94 Room Air 06/29/21 07:00 98.2 92 17 132/61 (84) 3.0 98.2 Weight Weight [ ] Input and Output Intake and Output Intake and Output 06/29/21 07:00 Intake Total 100 ml Balance 100 ml Intake Oral 100 ml # Voids 6 Physical Exam HEENT: Neck Supple W Full Motion Chest: Symmetric LUNGS: Clear to Auscultation, Other (fine expiratory wheezes ) Heart: RRR (SR/ST) Abdomen: Soft N/T Extremities: No Edema Neurology: alert, oriented, follow commands Assessment Assessment 1. Infrarenal abdominal aortic aneurysm; 5.[address] 2. Rib fractures; non-displaced left 8th and 10th ribs and acute fracture of the anterolateral right 9th rib. 3. Hypertensive urgency; now controlled . Echo with preserved LV systolic function 4. COPD with continued tobaccoism; discussed/encouraged cessation 5. Chronic back pain s/p nerve stimulator and morphine pain pump Recommendations MPI underway today Supportive care Follow vascular recs Justicifation of Admission Dx: Justifications for Admission: Justification of Admission Dx: MELANIE Rollins APRN Jun 29, 2021 11:45
[2021-06-29] MEDS: ALPRAZolam 0.5 MG TABLET PO SCH ×2 (12:00→21:36)
[2021-06-29] MEDS: LOSARTAN POTASSIUM 50 MG TABLET. PO SCH (12:00)
[2021-06-29] MEDS: PRAMIPEXOLE 0.25 MG TABLET. PO SCH (12:00)
[2021-06-29] MEDS: CELECOXIB 100 MG CAPSULE. PO SCH ×2 (12:01→21:36)
[2021-06-29] MEDS: CHOLECALCIFEROL (VITAMIN D3) 1,000 UNIT TABLET PO SCH (12:01)
[2021-06-29] MEDS: tiZANidine 4 MG TABLET. PO SCH ×2 (12:01→21:36)
[2021-06-29] MEDS: hydroCHLOROthiazide 12.5 MG CAPSULE PO SCH (12:01)
[2021-06-29] MEDS: GABAPENTIN 300 MG CAPSULE. PO SCH ×3 (12:01→21:36)
[2021-06-29] MEDS: oxyCODONE/APAP 10/325 1 TAB TABLET PO PRN (12:02)
[2021-06-29] MEDS: PANTOPRAZOLE 40 MG TABLET.DR. PO SCH (12:02)
[2021-06-29 15:00] VITALS: BP 128/67
--- NOTE | 2021-06-29 15:05 | RAD ---
MR#: [id number] Date of Study: 06/29/2021 Ordering Physician: MELANIE CLEMONS, Referring Physician: SOHA QUINTERO Tech: BETTY Redd ARRT (R) (N) APPROVED REPORT Test Type: Pharmacological Stress Nurse/Tech: Priscilla Jain RN Test Indications: AAA pre-op clearance Cardiac History: COPD, HTN, smoker Medications: See Electronic Medical Record Medical History: See Electronic Medical Record Resting ECG: SR BBB Resting Heart Rate: 96 bpm Resting Blood Pressure: 144/76mmHg Pretest Chest Pain: None Nurse/Tech Notes slight wheeze noted. Pt placed on 2LNC, S1S2 Consent: The procedure was explained to the patient in lay terms. Informed consent was witnessed. Jovanny eout was entered into [employer]. History and Stress Test performed by BETTY Redd, MEHRAN (R) (N) Pharm. Details Pharmacologic stress testing was performed using 0.4mg per 5ml of regadenoson given intravenously ove r 7-10 seconds. Stress Symptoms No chest pain or symptoms. POST EXERCISE Reason for Termination: Infusion complete Max HR: 126 bpm Max Blood Pressure: 171/71mmHg Blood Pressure response to exercise: Normal blood pressure response during stress. Heart Rate response to exercise: normal response Chest Pain: No. Arrhythmia: No. ST Change: No. INTERPRETATION Stress EKG Conclusion: Baseline EKG showed sinus rhythm with RBBB. No ischemic changes at peak stres s. No arrhythmias. Imaging Protocol IMAGE PROTOCOL: Rest Tc-99m/stress Tc-99m 1 day Rest: Stress: Viability: Radiopharm.Tc99m UlzgmoypuQj50x Sestamibi Olkd07qLy 31.5mCi Img Date 06/29/2021 06/29/2021 Inj-Img Myuo76rzs. 60min. Rest Admin Site:IV - Right AntecubitalAdministrator:BETTY Redd ARRT (R)(N) Stress Admin Site: IV - Right AntecubitalAdministrator: RT Ricardo Rivas)(N) STRESS DATA End Diast. Vol.81.0mlAv. Heart Cexz658.0bpm End Syst. Vol.18.0mlCO Index BSA7.0L/min Myocardial Unbk285.0gEject. Cnxpzvww71.0% Stress Rates Pk. Fill Rate3.16EDV/secLVtime Pk. Fill 143.11msec Pk. Empty Rate5.25ESV/secLVtime Pk. Armdy284.21msec 1/3 Pk. Fill1.90EDV/sec Stress Scores Regional WT1.00Summed WT17.00 Regional WM0.00Summed WM1.00 Study quality was good. Left Ventricular size was Normal at Rest and Stress. Lung uptake was . Left Ventricular ejection fraction is 71%. The rest and stress images show normal perfusion, normal contraction and thickening. LV Perf. Quant 17 Seg. SSS1.00 17 Seg. SRS3.00 17 Seg. SDS1.00 Stress Defect Extent (% LAD)3.10Rest Defect Extent (% LAD)0.00Rev. Defect Extent (% LAD)3.10 Stress Defect Extent (% LCX) 0.00Rest Defect Extent (% LCX)31.30Rev. Defect Extent (% LCX)0.00 Stress Defect Extent (% RCA)0.00Rest Defect Extent (% RCA)0.00Rev. Defect Extent (% RCA)0.00 Stress Defect Extent (% CAMPOS)1.10Rest Defect Extent (% CAMPOS)5.40Rev. Defect Extent (% CAMPOS)1.10 Conclusion 1. Regadenoson cardioisotope stress test did not show any evidence of ischemia or infarct. 2. Normal left ventricular systolic function with ejection fraction calculated at 71%. 3. Low risk for cardiac events. Signed by : Antonio Dhaliwal, Electronically Approved : 06/29/2021 15:04:52
[2021-06-29 19:52] VITALS: BP 126/62
[2021-06-29] MEDS: CALCIUM CARBONATE 500 MG TAB.CHEW PO PRN (22:09)
[2021-06-29 23:52] VITALS: BP 92/59
[2021-06-30] MEDS: CALCIUM CARBONATE 500 MG TAB.CHEW PO PRN ×2 (01:29→14:12)
[2021-06-30 03:44] VITALS: BP 120/64
[2021-06-30 07:00] VITALS: BP 126/62
[2021-06-30] MEDS: IPRATRPIUM/ALBUTEROL 0.5/2.5MG 3 ML NEBU. NEB SCH ×2 (08:39→11:35)
--- NOTE | 2021-06-30 08:48 | PDOC ---
Provider Note Date of Service: DATE: 06/30/21 TIME: 08:46 Provider Note ribs feel better, vss, cardiac eval good- surgical decision pending re time of procedure Justifications for Admission Other Justification MARLA MARTINEZ MD Jun 30, 2021 08:47
[2021-06-30] MEDS: hydroCHLOROthiazide 12.5 MG CAPSULE PO SCH (09:30)
[2021-06-30] MEDS: ALPRAZolam 0.5 MG TABLET PO SCH (09:30)
[2021-06-30] MEDS: CELECOXIB 100 MG CAPSULE. PO SCH (09:30)
[2021-06-30] MEDS: LOSARTAN POTASSIUM 50 MG TABLET. PO SCH (09:30)
[2021-06-30] MEDS: GABAPENTIN 300 MG CAPSULE. PO SCH ×2 (09:31→14:15)
[2021-06-30] MEDS: tiZANidine 4 MG TABLET. PO SCH (09:31)
[2021-06-30] MEDS: PANTOPRAZOLE 40 MG TABLET.DR. PO SCH (09:31)
[2021-06-30] MEDS: PRAMIPEXOLE 0.25 MG TABLET. PO SCH (09:31)
[2021-06-30] MEDS: CHOLECALCIFEROL (VITAMIN D3) 1,000 UNIT TABLET PO SCH (09:31)
--- NOTE | 2021-06-30 09:48 | PDOC ---
PULMONARY PROGRESS NOTES DATE: 06/30/21 TIME: 09:45 Subjective Patient is currently on 2.5 liters NC up ambulating in the room No shortness of breath, no cough no chest pain Overnight concerns from nursing Vitals Vital Signs Date Time Temp Pulse Resp B/P (MAP) Pulse Ox O2 Delivery O2 Flow Rate FiO2 06/30/21 09:30 91 126/62 06/30/21 08:39 100 Room Air 06/30/21 07:00 97.4 18 2.0 97.4 ROS: No Nausea, No Chest Pain, No Increase Cough General: Alert, No acute distress Lungs: Clear Cardiovascular: S1, S2 Abdomen: Soft, Non-tender Extremities: No Edema Medications Active Scripts Medications Dose Route/Sig Max Daily Dose Days Date Category Dose Instructions Miralax (Polyethylene Glycol 3350) 17 Gm Powd.pack 1 Packet PO DAILY 2 06/28/21 Reported dissolve in water Prilosec Otc (Omeprazole Magnesium) 20 Mg Tablet.dr 10 Mg PO DAILY 01/25/20 Reported Vitamin D3 (Cholecalciferol (Vitamin D3)) 250 Mcg Tablet 500 Mcg PO DAILY 01/25/20 Reported Percocet 10-325 Mg Tablet (Oxycodone/Acetaminophen) 1 Each Tablet 1.5 Tab PO PRN Q8HRS PRN MDD 4 Tablet(s) 5 01/25/20 Reported Percocet 10-325 Mg Tablet (Oxycodone/Acetaminophen) 1 Each Tablet 1 Tab PO PRN Q6HRS PRN 01/25/20 Reported Losartan-Hctz 50-12.5 Mg Tab (Losartan/Hydrochlorothiazide) 1 Each Tablet 1 Tab PO DAILY 01/25/20 Reported Gabapentin 600 Mg Tablet 600 Mg PO TID 01/25/20 Reported Xanax (Alprazolam) 0.5 Mg Tablet 1 Tab PO BID 01/25/20 Reported Tizanidine Hcl 4 Mg Tablet 1 Tab PO BID 01/25/20 Reported Mirapex (Pramipexole Di-Hcl) 0.25 Mg Tablet 0.5 Mg PO DAILY 1900 01/25/20 Reported Impression . 1. The patient with underlying chronic obstructive pulmonary disease. She is normally on 2.5 liters of oxygen, Overall, pulmonary status is stable. However, she has ongoing tobaccoism for last 30 years. 2. The patient updated on COVID vaccine 2 months ago. Her current rapid COVID test is negative. There are no infiltrate seen on the lower part of the lungs on CT abdomen. she had COVID last yr 3. A 5.2 cm abdominal aortic aneurysm. 4. Status post left 8-10th rib fracture without any pneumothorax. Plan . PLAN: Continue supplemental oxygen, at 2.5 L which is baseline oxygen requirement, pulmonary status is compensated Follow vascular surgery recommendations Follow cardiology recommendations--- EF is preserved PFTs in the outpatient PT/OT Ongoing education on the importance of tobacco cessation DVT/GI prophylaxis Patient is stable to discharge from our standpoint We will see as needed please call with any questions or concerns thank you AN PRIETO MD Jun 30, 2021 09:48
--- NOTE | 2021-06-30 10:02 | PDOC ---
PROGRESS NOTES Date of Service DATE: 06/30/21 TIME: 09:47 Subjective Subjective Still having some pain on the left flank/chest wall. Denies central abdominal pain. Notes that she has her baseline back pain. Objective Objective Vital Signs Date Time Temp Pulse Resp B/P (MAP) Pulse Ox O2 Delivery O2 Flow Rate FiO2 06/30/21 09:30 91 126/62 06/30/21 08:39 100 Room Air 06/30/21 07:00 97.4 18 2.0 97.4 Intake and Output 06/30/21 07:00 Intake Total 690 ml Balance 690 ml Intake Oral 690 ml # Voids 3 # Bowel Movements 4 Physical Exam Physical Exam General: alert and oriented, no acute distress Heart: regular rate and rhythm Lungs: nonlabored respirations on nasal cannula Abd: soft, nontender, nondistended, no guarding or rebound, no palpabe pulsatile mass Ext: no cyanosis or edema Vasc: 2+ femoral, DP/PT pulses Skin: no notable lesions or wounds Neuro: grossly intact to BUE and BLE Diagnosis RESPIRATORY DISEASE: Chest trauma RESPIRATORY FAILURE: Chronic Other abdominal aortic aneurysm rib fractures Assessment Assessment Problems Medical Problems: (1) Abdominal aortic aneurysm (AAA) greater than 5.0 cm in diameter in female Status: Acute (2) Flank pain Status: Acute Plan Plan of Care We will plan for outpatient CTA with contrast premedication for allergy. She will need this CTA to better delineate her aortic anatomy. She is not a good candidate for standard EVAR for her AAA given the juxtarenal nature of her aneurysm. Her recent rib fractures and chronic oxygen requirement put her at increased risk for open repair as well. It would be pertinent for her to recover from her rib fractures prior to undergoing any attempt at repair, whether open or endovascular. We will see her back in the clinic with the CTA to determine her best plan of action for aortic intervention. She was counseled on the signs and symptoms of aneurysm rupture and will return to the hospital should those develop. Comment Review of Relevant I have reviewed the following items easton (where applicable) has been applied. Medications Current Medications Ketorolac Tromethamine (Toradol 30mg Vial) 30 mg 1X ONCE IVP Last administered on 06/26/21at 17:53; Start 06/26/21 at 17:30; Stop 06/26/21 at 17:33; Status DC Morphine Sulfate (Morphine Sulfate) 4 mg 1X ONCE IVP Last administered on 06/26/21 17:54; Start 06/26/21 at 17:30; Stop 06/26/21 at 17:33; Status DC Sodium Chloride 1,000 ml @ 1,000 mls/hr 1X ONCE IV Last administered on 06/26/21at 17:53; Start 06/26/21 at 17:30; Stop 06/26/21 at 18:29; Status DC Ondansetron HCl (Zofran) 4 mg 1X ONCE IVP Last administered on 06/26/21at 17:53; Start 06/26/21 at 17:30; Stop 06/26/21 at 17:33; Status DC Losartan Potassium (Cozaar) 25 mg DAILY PO ; Start 06/27/21 at 09:00; Stop 06/26/21 at 22:59; Status DC Alprazolam (Xanax) 0.5 mg BID PO Last administered on 06/30/21 09:30; Start 06/27/21 at 09:00 Oxycodone/ Acetaminophen (Percocet 10/325) 1.5 tab PRN Q8HRS PRN PO PAIN Last administered on 06/26/21at 23:45; Start 06/26/21 at 23:00; Stop 06/27/21 at 04:39; Status DC Tizanidine HCl (Zanaflex) 4 mg BID PO Last administered on 06/30/21 09:31; Start 06/27/21 at 09:00 Vitamin D (Vitamin D3) 1,000 unit DAILY PO Last administered on 06/30/21 09:31; Start 06/27/21 at 09:00 Gabapentin (Neurontin) 600 mg TID PO Last administered on 06/30/21 09:31; Start 06/27/21 at 09:00 Losartan Potassium (Cozaar) 50 mg DAILY PO Last administered on 06/30/21 09:30; Start 06/27/21 at 09:00 Pantoprazole Sodium (Protonix) 40 mg DAILYAC PO Last administered on 06/30/21 09:31; Start 06/27/21 at 07:30 Pramipexole Dihydrochloride (miraPEX) 0.5 mg DAILY PO Last administered on 06/30/21 09:31; Start 06/27/21 at 09:00 Hydrochlorothiazide (Microzide) 12.5 mg DAILY PO Last administered on 06/30/21at 09:30; Start 06/27/21 at 09:00 Albuterol Sulfate (Ventolin Neb Soln) 2.5 mg 1X ONCE NEB Last administered on 06/29/21at 15:29; Start 06/27/21 at 04:15; Stop 06/27/21 at 04:21; Status DC Oxycodone/ Acetaminophen (Percocet 10/325) 1.5 tab PRN Q6HRS PRN PO PAIN Last administered on 06/29/21 12:02; Start 06/27/21 at 04:45 Albuterol/ Ipratropium (Duoneb) 3 ml RTQID NEB Last administered on 06/30/21at 08:39; Start 06/27/21 at 12:00 Celecoxib (CeleBREX) 200 mg BID PO Last administered on 06/30/21 09:30; Start 06/27/21 at 12:00 Alprazolam (Xanax) 0.5 mg PRN BID PRN PO ANXIETY / AGITATION; Start 06/27/21 at 17:15 Magnesium Citrate (Citroma) 296 ml 1X ONCE PO Last administered on 06/28/21at 08:00; Start 06/28/21 at 08:00; Stop 06/28/21 at 08:01; Status DC Polyethylene Glycol (miraLAX PACKET) 17 gm DAILY PO ; Start 06/29/21 at 09:00; Stop 06/28/21 at 22:33; Status DC Polyethylene Glycol (miraLAX PACKET) 17 gm DAILY PO Last administered on 06/28/21at 22:46; Start 06/28/21 at 22:45; Stop 06/29/21 at 12:31; Status DC Regadenoson (Lexiscan) 0.4 mg 1X ONCE IV Last administered on 06/29/21at 11:13; Start 06/29/21 at 09:30; Stop 06/29/21 at 09:31; Status DC Polyethylene Glycol (miraLAX PACKET) 17 gm QHS PO ; Start 06/29/21 at 21:00 Calcium Carbonate/ Glycine (Tums) 500 mg PRN AFTMEALHC PRN PO INDIGESTION Last administered on 06/30/21at 01:29; Start 06/29/21 at 21:45 Active Scripts Active Reported Miralax (Polyethylene Glycol 3350) 17 Gm Powd.pack 1 Packet PO DAILY 2 Days dissolve in water Prilosec Otc (Omeprazole Magnesium) 20 Mg Tablet.dr 10 Mg PO DAILY Vitamin D3 (Cholecalciferol (Vitamin D3)) 250 Mcg Tablet 500 Mcg PO DAILY Percocet 10-325 Mg Tablet (Oxycodone/Acetaminophen) 1 Each Tablet 1.5 Tab PO PRN Q8HRS PRN MDD 4 Tablet(s) 5 Days Percocet 10-325 Mg Tablet (Oxycodone/Acetaminophen) 1 Each Tablet 1 Tab PO PRN Q6HRS PRN Losartan-Hctz 50-12.5 Mg Tab (Losartan/Hydrochlorothiazide) 1 Each Tablet 1 Tab PO DAILY Gabapentin 600 Mg Tablet 600 Mg PO TID Xanax (Alprazolam) 0.5 Mg Tablet 1 Tab PO BID Tizanidine Hcl 4 Mg Tablet 1 Tab PO BID Mirapex (Pramipexole Di-Hcl) 0.25 Mg Tablet 0.5 Mg PO DAILY 1900 Vitals/I & O Vital Sign - Last 24 Hours 06/29/21 06/29/21 06/29/21 06/29/21 11:00 12:00 12:02 12:35 Temp 98.6 98.6 Pulse 92 92 Resp 17 19 19 B/P (MAP) 121/65 (83) 121/65 Pulse Ox 94 93 93 O2 Delivery Nasal Cannula Room Air Room Air O2 Flow Rate 3.0 06/29/21 06/29/21 06/29/21 06/29/21 15:00 15:29 19:52 20:15 Temp 97.6 97.4 97.6 97.4 Pulse 113 91 Resp 18 18 B/P (MAP) 128/67 (87) 126/62 (83) Pulse Ox 94 94 97 O2 Delivery Nasal Cannula Room Air Nasal Cannula Nasal Cannula O2 Flow Rate 3.0 2.0 2.0 06/29/21 06/29/21 06/30/21 06/30/21 21:00 23:52 03:44 07:00 Temp 97.5 97.5 97.4 97.5 97.5 97.4 Pulse 82 70 91 Resp 16 16 18 B/P (MAP) 92/59 (70) 120/64 (82) 126/62 (83) Pulse Ox 99 94 97 O2 Delivery Room Air Nasal Cannula Nasal Cannula O2 Flow Rate 2.0 93.0 2.0 06/30/21 06/30/21 08:39 09:30 Pulse 91 B/P (MAP) 126/62 Pulse Ox 100 O2 Delivery Room Air Intake and Output 06/29/21 06/29/21 06/30/21 15:00 23:00 07:00 Intake Total 240 ml 240 ml 210 ml Balance 240 ml 240 ml 210 ml Justifications for Admission Other Justification REBA TREJO DO Jun 30, 2021 10:02
[2021-06-30 11:00] VITALS: BP 130/71
--- NOTE | 2021-06-30 11:01 | PDOC ---
MELANIE CLEMONS DARRYN 06/30/21 1101: CARDIO Progress Notes Date and Time Date of Service 06/30/21 Time of Evaluation 1100 Subjective Subjective: No Chest Pain, No shortness of breath Vitals Vitals Vital Signs Date Time Temp Pulse Resp B/P (MAP) Pulse Ox O2 Delivery O2 Flow Rate FiO2 06/30/21 09:30 91 126/62 06/30/21 08:39 100 Room Air 06/30/21 07:00 97.4 18 2.0 97.4 Weight Weight [ ] Input and Output Intake and Output Intake and Output 06/30/21 07:00 Intake Total 690 ml Balance 690 ml Intake Oral 690 ml # Voids 3 # Bowel Movements 4 Physical Exam HEENT: Neck Supple W Full Motion Chest: Symmetric LUNGS: Clear to Auscultation, Other (diminished bases) Heart: RRR (SR/ST) Abdomen: Soft N/T Extremities: No Edema Neurology: alert, oriented, follow commands Assessment Assessment 1. Infrarenal abdominal aortic aneurysm; 5.[address] 2. Rib fractures; non-displaced left 8th and 10th ribs and acute fracture of the anterolateral right 9th rib. 3. Hypertensive urgency; now controlled . Echo with preserved LV systolic function. Stress test did not shows any evidence of ischemia or infarct. 4. COPD with continued tobaccoism; discussed/encouraged cessation 5. Chronic back pain s/p nerve stimulator and morphine pain pump Recommendations Would be deemed at least moderate risk for surgery. Supportive care Follow vascular recs Justicifation of Admission Dx: Justifications for Admission: Justification of Admission Dx: No AMY RODRIGUEZ MD 06/30/21 1503: CARDIO Progress Notes Assessment Assessment Patient seen and evaluated. I agree with our nurse practitioners assessment and plan. Infrarenal abdominal aortic aneurysm; 5.[address] being evaluated by the vascular surgery service with probable outpatient follow-up. Normal LV function on echo. No evidence of ischemia or infarct on MPI testing. Moderate surgical risk from a cardiology viewpoint. Rib fractures; non-displaced left 8th and 10th ribs and acute fracture of the anterolateral right 9th rib. Hypertensive urgency; now controlled . Echo with preserved LV systolic function. Stress test did not shows any evidence of ischemia or infarct. COPD with continued tobaccoism Chronic back pain s/p nerve stimulator and morphine pain pump DEONTE,EMILY DARRYN Jun 30, 2021 11:01 AMY RODRIGUEZ MD Jun 30, 2021 15:03
--- NOTE | 2021-06-30 14:02 | NUR ---
SW following. Discussed with RN, discharge order for home with self care. Pt wanting to go home. No further SW needs.
[2021-06-30] MEDS ORDERED: NICOTINE 21MG PATCH. TD SCH (15:30)
--- NOTE | 2021-06-30 15:30 | NUR ---
DISCHARGE INSTRUCTIONS GIVEN, QUESTIONS AND CONCERNS ANSWERED, PATIENT VERBALIZED UNDERSTANDING OF DISCHARGE INFORMATION INCLUDING TAKING ALL MEDICATIONS INSTRUCTED AND FOLLOWING UP WITH HER PRIMARY PROVIDER, DR. RODRIGUEZ AND DR. WESLEY INSTRUCTED. SALINE LOCK REMOVED PER THIS COLLECTION SUPERVISOR AND BANDAGE APPLIED.
--- NOTE | 2021-06-30 15:46 | NUR ---
PATIENTS FAMILY MEMBER HERE, PATIENT LEAVES THE UNIT PER W/C AND ACCOMPANIED BY HER SON AND THE BIOFUELS ENGINEERING MANAGER ON THE UNIT, EMOTIONAL SUPPORT GIVEN, FOLLOW UP APPOINTMENTS ENCOURAGED.
--- NOTE | 2021-07-01 10:34 | DS ---
DATE OF DISCHARGE: 06/30/2021 HOSPITAL SUMMARY: The patient came in with lower abdominal and some back pain, which is chronic for her. CT scan of the abdomen and pelvis showed evidence of significant constipation and 52 mm perirenal abdominal aortic aneurysm. There was no sign of rupture. No other pathology. Laboratory studies were unremarkable. Constipation was treated successfully with magnesium citrate and her abdominal pain improved. She was seen by vascular surgeons who recommended Pulmonary and Cardiac evaluation before considering an operative repair of the aneurysm. Dr. Hernandez saw her and cleared her for surgery, but she did have bilateral lower rib fractures from recent minor trauma. Echocardiogram and Lexiscan MPI were both within normal limits. It was felt that surgery was greater benefit than risk for her at this time. This will be scheduled as an outpatient with vascular surgeon. Discharged in stable condition. FINAL DIAGNOSES: 1. Abdominal pain secondary to constipation drug-induced. 2. Abdominal aortic aneurysm 52 mm, nonruptured. COMPLICATIONS: None. CONSULTATION: Dr. Hernandez and Dr. Hernandez's group and Dr. Shaver. DISCHARGE INSTRUCTIONS: 1. Home meds remain the same. 2. Follow up with Vascular Surgery to plan timing of surgical repair, vascular in nature. 3. Daily MiraLax will be continued for her opioid that she takes for chronic low back with spinal stimulator in place as well. ALEJO MELVIN: DIMAS/cliff TID: [id number]
== END 2021-06-30 15:49 | disposition home or self-care (01) | DRG 300 ==
LOC: ER 15:58 → 5 SOUTH 20:26
PROVIDERS: ADMIT Family Medicine; ATTEND Family Medicine
DX: I71.4 Abdominal aortic aneurysm, without rupture (principal); S22.42XA Multiple fractures of ribs, left side, initial encounter for closed fracture; K59.03 Drug induced constipation; F17.210 Nicotine dependence, cigarettes, uncomplicated; G89.29 Other chronic pain; I10 Essential (primary) hypertension; I16.0 Hypertensive urgency; J44.9 Chronic obstructive pulmonary disease, unspecified; K44.9 Diaphragmatic hernia without obstruction or gangrene; K59.00 Constipation, unspecified; Z20.822 Contact with and (suspected) exposure to COVID-19; Z86.16 Personal history of COVID-19; Z87.442 Personal history of urinary calculi; Z90.710 Acquired absence of both cervix and uterus; F41.9 Anxiety disorder, unspecified; K21.9 Gastro-esophageal reflux disease without esophagitis; Z90.49 Acquired absence of other specified parts of digestive tract; Z88.8 Allergy status to other drugs, medicaments and biological substances; W18.39XA Other fall on same level, initial encounter; Y93.89 Activity, other specified; Y92.89 Other specified places as the place of occurrence of the external cause; Y99.8 Other external cause status
CPT/HCPCS: 36415; 71110; 74176; 78452; 80048; 80053; 80061; 81001; 83690; 83735; 85025; 87426; 93017; 93306; 94640; 94760; 96361; 96374; 96375; A9500; J1885; J2270; J2405; J2785; J7030; U0003; U0005; 99291-25; G0378; J7613

== ENCOUNTER → 2021-07-07 | Outpatient (CLI) | payer MEDICARE, BC ==
[2021-06-30 11:00] VITALS: BP 130/71
[~2021-07-07] MED LIST changes: +POLY17PO29 PO
--- NOTE | 2021-07-07 15:22 | RAD ---
EXAM: CT LOW-DOSE LUNG SCREENING CLINICAL HISTORY: Reason: low dose smoker lung cancer screen / Spl. Instructions: 40 years/ 1/2 ppd / sister lung cancer / History: COMPARISON: None available. TECHNIQUE: Noncontrast helical low-dose CT chest per standard departmental protocol. PQRS compliance statement - One or more of the following individualized dose reduction techniques wer e utilized for this study: 1. Automated exposure control 2. Adjustment of the mA and/or kV according to patient size 3. Use of iterative reconstruction technique FINDINGS: Lung screening specific (LUNG-RADS): Multiple 3-4 mm lung nodules bilaterally are grossly stable. Potentially significant incidental findings (LUNG-RADS category S): Moderate hiatal hernia. Aortic ca lcifications are seen. Other incidental findings: Linear and bandlike opacities lower lobes likely scarring/atelectasis. RECOMMENDATIONS/ IMPRESSION: 1. LUNG-RADS category: 2. Recommend 12 month low-dose CT per ACR guidelines. 2. Other incidental findings as above. Electronically signed by: Ángel Virgen MD (07/07/2021 3:20 PM) [facility]
== END ==
LOC: CT 11:10
PROVIDERS: ATTEND Internal Medicine Pulmonary Disease
DX: Z12.2 Encounter for screening for malignant neoplasm of respiratory organs (principal); R91.8 Other nonspecific abnormal finding of lung field; Z87.891 Personal history of nicotine dependence
CPT/HCPCS: 71271

== ENCOUNTER → 2021-09-23 | Outpatient (CLI) | payer MEDICARE, BC ==
[~2021-09-23] MED LIST changes: +ALBU0.63 NEB; +FLUT1DIS IH; +TIZA-75 PO; -TIZA4TAB2 PO
--- NOTE | 2021-09-24 08:47 | KCIC ---
Exam: CT abdomen/pelvis without intravenous contrast Indication: Kidney stones, fever, acute right flank pain. No hematuria. Comparison: CT abdomen pelvis 06/26/[address] abdomen and pelvis 06/08/2016 Technique: Helical CT imaging performed of the abdomen and pelvis without the use of intravenous cont rast. Sagittal and coronal reformats were obtained. One or more of the following individualized dose reduction techniques were utilized for this examinat ion: 1. Automated exposure control 2. Adjustment of the mA and/or kV according to patient size 3. Use of iterative reconstruction technique. Findings: Inherently limited evaluation without intravenous contrast. Lower chest: Mild paraseptal emphysema. Heart is normal in size. Moderate hiatal hernia. Liver: Normal noncontrast appearance of the liver. Gallbladder/Biliary Tree: Normal. Pancreas: Normal. Spleen: Normal. Adrenal Glands: Normal Kidneys/Ureters/Bladder: Kidneys are normal in size. There is no nephrolithiasis. There is a 2 cm sim ple cyst in the right kidney. No hydronephrosis. Ureters and bladder are normal. Reproductive Organs: Uterus is surgically absent. No adnexal mass. Stomach, small bowel, and colon: Moderate hiatal hernia. No small bowel obstruction. Appendix and col on are normal. Vasculature: An infrarenal abdominal aortic aneurysm measuring up to 5.0 x 5.0 cm is unchanged from . The abdominal aorta is tortuous. There is moderate aortoiliac calcified atherosclerosis. Lymph Nodes: No lymphadenopathy. Peritoneum and retroperitoneum: No free fluid or free air. Bones: There is moderate dextroscoliosis of the lumbar spine with moderate degenerative disc disease. There are 2 unchanged spinal stimulators. One battery pack is in the right lower quadrant anterior ab dominal wall and the other in the posterior lower back, both with leads extending cranially in the ca nal. Impression: 1. No urolithiasis or hydronephrosis. 2. Infrarenal abdominal aortic aneurysm measuring up to 5.0 x 5.0 cm. This is unchanged from but has significantly increased from 06/08/2016 where it measured about 3.5 x 3.5 cm. Recommend card iac surgery consultation if not already obtained. 3. Moderate hiatal hernia. Electronically signed by: Octavia Jane MD (09/24/2021 8:45 AM) [id number]
== END ==
LOC: KCIC CT 14:21
PROVIDERS: ATTEND Family Medicine
DX: N28.1 Cyst of kidney, acquired (principal); K44.9 Diaphragmatic hernia without obstruction or gangrene; R50.9 Fever, unspecified; J43.9 Emphysema, unspecified; I71.4 Abdominal aortic aneurysm, without rupture; I70.0 Atherosclerosis of aorta; I70.8 Atherosclerosis of other arteries; M51.36 Other intervertebral disc degeneration, lumbar region; M41.86 Other forms of scoliosis, lumbar region; Z87.442 Personal history of urinary calculi
CPT/HCPCS: 74176

== ENCOUNTER 2021-09-25 13:07 | Inpatient (IN) | payer MEDICARE, BC ==
[~2021-09-25] VITALS: Ht 162.6 cm; Wt 67.5 kg
[~2021-09-25 13:07] MED LIST changes: -ALBU0.63 NEB; -FLUT1DIS IH
--- NOTE | 2021-09-25 14:13 | PHYS DOC ---
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 Patient states she had blood work done a couple days ago and her hemoglobin was 8.0 and her doctor was concerned she is losing blood somewhere. She states she has history of hemorrhoids but has not seen any rectal bleeding. She is also complaining of chronic right-sided back pain rated at 8 out of 10 described as throbbing, sharp and constant worse on movement. She is also complaining of 8 out of 10 sharp intermittent right groin pain that began a week ago. Patient denies anything specifically exacerbating or relieving her groin pain. Reports she has a pain pump, a nerve stimulator, and takes oxycodone gabapentin and Xanax which is not helping for her pain. Denies any trauma. Denies any pain radiating to bilateral lower extremities. Denies any loss of bowel/bladder function. PCP Dr. Martinez (SANA SANDOVAL TYPEWRITER REPAIRER) Review of Systems: Review of Systems: Constitutional: Reports low hemoglobin. Denies fever or chills. [] Eyes: Denies change in visual acuity. [] HENT: Denies nasal congestion or sore throat. [] Respiratory: Denies cough or shortness of breath. [] Cardiovascular: Denies chest pain or edema. [] GI: Reports right groin pain, reports chronic hemorrhoids. Denies abdominal pain, nausea, vomiting, bloody stools or diarrhea. [] : Denies dysuria. [] Musculoskeletal: Reports chronic low back pain. Integument: Denies rash. [] Neurologic: Denies headache, focal weakness or sensory changes. [] Psychiatric: Denies depression or anxiety. 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 Risk Scores: Score 0 - 3: 2.5% MACE over next 6 weeks - Discharge Home Score 4 - 6: 20.3% MACE over next 6 weeks - Admit for Clinical Observation Score 7 - 10: 72.7% MACE over next 6 weeks - Early Invasive Strategies (SANA SANDOVAL APRN) Allergies: Allergies: Allergies Coded Allergies Type Severity Reaction Last Updated Verified Iodinated Contrast Media Adverse Reaction Severe SEIZURES 05/22/20 Yes (SANA SANDOVAL APRN) Physical Exam: PE: Constitutional: Well developed, well nourished, no acute distress, non-toxic appearance. [] HENT: Normocephalic, atraumatic, bilateral external ears normal, oropharynx moist, no oral exudates, nose normal. [] Eyes: PERRLA, EOMI, conjunctiva normal, no discharge. [] Neck: Normal range of motion, no tenderness, supple, no stridor. [] Cardiovascular:Heart rate regular rhythm, no murmur [] Lungs & Thorax: Bilateral breath sounds clear to auscultation [] Abdomen: Bowel sounds normal, soft, no tenderness, no masses, no pulsatile masses. [] Rectal exam external rectum noted for appendicitis nonthrombosed hemorrhoid, no palpable internal hemorrhoids noted, no active bleeding noted Skin: Warm, dry, no erythema, no rash. [] Back: Scoliosis to the upper back, old healed surgical incision noted on the right low back from a nerve stimulator, another old incision noted on the right lower quadrant from a pain pump, diffuse tenderness throughout the lumbar spine, thoracic spine, no CVA tenderness. [] Extremities: No tenderness, no cyanosis, no clubbing, ROM intact, no edema. [] Neurologic: Alert and oriented X 3, normal motor function, normal sensory function, no focal deficits noted. [] Psychologic: Affect normal, judgement normal, mood normal. [] (SANA SANDOVAL APRN) Current Patient Data: Vital Signs: Vital Signs Date Time Temp Pulse Resp B/P (MAP) Pulse Ox O2 Delivery O2 Flow Rate FiO2 09/25/21 13:27 98.1 100 20 175/91 (119) 99 Room Air 98.1 (SANA SANDOVAL APRN) EKG: EKG: [] (SANA SANDOVAL APRN) Radiology/Procedures: Radiology/Procedures: [] (SANA SANDOVAL APRN) Course & Med Decision Making: Course & Med Decision Making Pertinent Labs and Imaging studies reviewed. (See chart for details) This is a 76-year-old female patient presented to the ED today to be evaluated for low hemoglobin from blood doctor that was done a couple days ago, patient states her hemoglobin was 8.0 and her PCP was concerned she is losing blood. She is also complaining of chronic back pain and right groin pain for a week. She had a CT done09/23/2021 which shows she has an aneurysm that has increased in size otherwise no acute findings. Hemoglobin 9.1 with hematocrit of 29.8, CMP with nothing acute, Hemoccult positive I spoke to Dr. Martinez who accepted patient for admission (SANA SANDOVAL APRN) Course & Med Decision Making I have participated in the care of this patient and I have reviewed and agree with all pertinent clinical information above including history, exam, and recommendations. Jalen Mcconnell DO (JALEN MCCONNELL DO) Woodrow Disclaimer: Woodrow Disclaimer: This electronic medical record was generated, in whole or in part, using a voice recognition dictation system. (SANA SANDOVAL APRN) Departure Departure Impression: Primary Impression: Intractable right lower quadrant abdominal pain Additional Impressions: Anemia Qualified Codes: D64.9 - Anemia, unspecified Intractable low back pain Disposition: ADMITTED INPATIENT Condition: STABLE Referrals: MARLA MARTINEZ MD (PCP) SANA SANDOVAL APRN Sep 25, 2021 14:13 JALEN MCCONNELL DO Sep 25, 2021 16:46
[2021-09-25 14:19] LABS: BASO # 0.2 x10^3/uL (0.0-0.2); BASO % 3 % (0-3); EOS # 0.2 x10^3/uL (0.0-0.7); EOS % 2 % (0-3); HEMATOCRIT 29.8 % (36.0-47.0); HEMOGLOBIN 9.1 g/dL (12.0-15.5); LYMPH # 1.7 x10^3/uL (1.0-4.8); LYMPH % 22 % (24-48); MEAN CORPUSCULAR HEMOGLOBIN 22 pg (25-35); MEAN CORPUSCULAR HGB CONC 31 g/dL (31-37); MEAN CORPUSCULAR VOLUME 73 fL (79-100); MONO # 0.7 x10^3/uL (0.0-1.1); MONO % 9 % (0-9); NEUT # 5.1 x10^3/uL (1.8-7.7); NEUT % 64 % (31-73); PLATELET COUNT 307 x10^3/uL (140-400); RED BLOOD COUNT 4.08 x10^6/uL (3.50-5.40); RED CELL DISTRIBUTION WIDTH 19.2 % (11.5-14.5); WHITE BLOOD COUNT 7.9 x10^3/uL (4.0-11.0)
[2021-09-25 14:28] LABS: FECAL OB PT POSITIVE (NEG)
[2021-09-25 14:30] LABS: CALCIUM 8.6 mg/dL (8.5-10.1); CREATININE 0.7 mg/dL (0.6-1.0); GFR 80.9; POTASSIUM 4.1 mmol/L (3.5-5.1)
[2021-09-25 14:36] LABS: ALBUMIN 3.6 g/dL (3.4-5.0); ALBUMIN/GLOBULIN RATIO 0.9 (1.0-1.7); MAGNESIUM 2.1 mg/dL (1.8-2.4); TOTAL BILIRUBIN 0.2 mg/dL (0.2-1.0); TOTAL PROTEIN 7.6 g/dL (6.4-8.2)
[2021-09-25 14:58] LABS: PROTHROMBIN TIME PATIENT 13.1 SEC (11.7-14.0)
[2021-09-25] MEDS ORDERED: MORPHINE SULFATE 4 MG/ML INJ. IVP ONE (15:15)
[2021-09-25 15:23] LABS: ANISOCYTOSIS SLIGHT; HYPOCHROMIA MOD; MICROCYTOSIS SLIGHT; PLT ESTIMATE ADEQUATE (ADEQUATE); POLYCHROMASIA SLIGHT
[2021-09-25 15:24] LABS: OVALOCYTES FEW
[2021-09-25] MEDS ORDERED: ONDANSETRON PF 4 MG/2 ML VIAL. IVP PRN (15:30)
[2021-09-25] MEDS: MORPHINE SULFATE 4 MG/ML INJ. IVP PRN ×2 (18:56→23:19)
[2021-09-25 19:15] VITALS: BP 138/73
[2021-09-25 23:11] VITALS: BP 156/87
--- NOTE | 2021-09-25 23:56 | EKG ---
[facility] [address] [place] [address] Test Date: 2021-09-25 Test Time: 13:48:34 Pat Name: JARVIS THOMSON Department: Room: 426 Gender: F Pediatrics Hospitalist: : 1945 Requested By: SANA SANDOVAL Order Number: [id number] Reading MD: Forrest Perez Measurements Intervals [place] Rate: 87 P: 53 UT: 122 QRS: -3 QRSD: 124 T: 17 QT: 382 QTc: 466 Interpretive Statements SINUS RHYTHM LEFTWARD AXIS RIGHT BUNDLE BRANCH BLOCK QRS(T) CONTOUR ABNORMALITY CONSIDER ANTEROLATERAL MYOCARDIAL DAMAGE ABNORMAL ECG RI6.01 Compared to ECG 01/25/2020 11:01:05 Electronically Signed On 09-27-2021 9:29:54 CHILD LIFE THERAPIST by Forrest Perez
[2021-09-26 03:10] VITALS: BP 143/68
[2021-09-26 07:30] VITALS: BP 129/65
--- NOTE | 2021-09-26 10:29 | PDOC ---
Provider Note Date of Service: DATE: 09/26/21 TIME: 10:28 Provider Note likely anemic from esoph source, will add more ppi, carafate, needs egd as risk for CA in upper tract- pain appears to be hip, R hip xr 2018 mild djd, ct abd ok- repeat xr now Justifications for Admission Other Justification MARLA MARTINEZ MD Sep 26, 2021 10:29
[2021-09-26 11:00] VITALS: BP 168/82
[2021-09-26] MEDS ORDERED: POLYETHYLENE GLYCOL 3350 17 GM PACKET. PO SCH (12:00)
[2021-09-26] MEDS: LOSARTAN POTASSIUM 50 MG TABLET. PO SCH (12:14)
[2021-09-26] MEDS: hydroCHLOROthiazide 12.5 MG CAPSULE PO SCH (12:14)
[2021-09-26] MEDS: ALPRAZolam 0.5 MG TABLET PO SCH ×2 (12:14→21:22)
[2021-09-26] MEDS: PANTOPRAZOLE 40 MG TABLET.DR. PO SCH (12:15)
[2021-09-26] MEDS: tiZANidine 4 MG TABLET. PO SCH ×2 (12:15→21:22)
[2021-09-26] MEDS: POLYETHYLENE GLYCOL 3350 17 GM PACKET. PO SCH (12:16)
[2021-09-26] MEDS: SUCRALFATE 1 GM/10 ML ORAL.SUSP. PO SCH ×3 (12:16→21:23)
--- NOTE | 2021-09-26 12:16 | RAD ---
XR BILATERAL HIP (WITH OR WITHOUT PELVIS) 2 VIEWS_RIGHT History: Reason: pain / Spl. Instructions: / History: Technique: AP view the pelvis and 2 additional views of the right hip. Comparison: CT September 23, 2021 Findings: No dislocation. No acute fracture. Mild bilateral hip DJD. Bilateral coxa profunda. Lower lumbar spon dylosis. Impression: 1. No acute osseous abnormality. 2. Mild bilateral hip DJD. Electronically signed by: Timo Patino DO (09/26/2021 12:13 PM) [facility]
--- NOTE | 2021-09-26 13:03 | PDOC2 ---
GI CONSULT Date of Service: DATE: 09/26/21 TIME: 12:51 Reason For Consult: Microcytic anemia HPI: HPI: 76 y/o female admitted after finding of microcytic anemia on outpatient labs. We are asked to see re: this. Denies melena. Does occasionally see bright red blood attributed to known hemorrhoids. Seen by us in 2016 for melena. EGD at that time unrevealing; no biopsies taken, Colonoscopy with sigmoid diverticulosis and hyperplastic polyp. Stool heme positive now in ER. Denies diarrhea or constipation. No N,V. H/o GERD; says more issues with this recently with heartburn and globus. No dysphagia. Was on OTC Prilosec at home daily. No prior PUD, GB, liver or pa ncreatic history. Not taking other than occasional NSAID. Not on anticoagulant. PMH: PMH: HTN, spinal stenosis, past ischemic colitis, nephrolithiasis, cataracts. S/P hyster, right hip surgery, left foot surgery, ECCE, tonsillectomy. FH: Family History: No pertinent hx Social History: Smoke: <1 pack per day ALCOHOL: none Drugs: None ROS: GEN: Denies fevers, chills, sweats HEENT: Denies blurred vision, sore throat CV: Denies chest pain RESP: Denies shortness of air, cough GI: Per HPI : Denies hematuria, dysuria ENDO: Denies weight changes NEURO: Denies confusion, dizziness MSK: Denies weakness, swelling. Ongoing right hip pain. SKIN: Denies jaundice, pruritus Vitals: Vitals: Vital Signs Date Time Temp Pulse Resp B/P (MAP) Pulse Ox O2 Delivery O2 Flow Rate FiO2 09/26/21 12:14 76 129/65 09/26/21 11:00 97.3 16 92 Room Air 97.3 Labs: Labs: Laboratory Tests Test 09/25/21 13:56 09/25/21 15:34 White Blood Count 7.9 x10^3/uL (4.0-11.0) Red Blood Count 4.08 x10^6/uL (3.50-5.40) Hemoglobin 9.1 g/dL (12.0-15.5) Hematocrit 29.8 % (36.0-47.0) Mean Corpuscular Volume 73 fL (79-100) Mean Corpuscular Hemoglobin 22 pg (25-35) Mean Corpuscular Hemoglobin Concent 31 g/dL (31-37) Red Cell Distribution Width 19.2 % (11.5-14.5) Platelet Count 307 x10^3/uL (140-400) Neutrophils (%) (Auto) 64 % (31-73) Lymphocytes (%) (Auto) 22 % (24-48) Monocytes (%) (Auto) 9 % (0-9) Eosinophils (%) (Auto) 2 % (0-3) Basophils (%) (Auto) 3 % (0-3) Neutrophils # (Auto) 5.1 x10^3/uL (1.8-7.7) Lymphocytes # (Auto) 1.7 x10^3/uL (1.0-4.8) Monocytes # (Auto) 0.7 x10^3/uL (0.0-1.1) Eosinophils # (Auto) 0.2 x10^3/uL (0.0-0.7) Basophils # (Auto) 0.2 x10^3/uL (0.0-0.2) Platelet Estimate Adequate (ADEQUATE) Large Platelets Few Polychromasia Slight Hypochromasia Mod Anisocytosis Slight Microcytosis Slight Ovalocytes Few Prothrombin Time 13.1 SEC (11.7-14.0) Prothromb Time International Ratio 1.0 (0.8-1.1) Activated Partial Thromboplast Time 34 SEC (24-38) Stool Occult Blood Positive (NEG) Sodium Level 138 mmol/L (136-145) Potassium Level 4.1 mmol/L (3.5-5.1) Chloride Level 101 mmol/L (98-107) Carbon Dioxide Level 31 mmol/L (21-32) Anion Gap 6 (6-14) Blood Urea Nitrogen 16 mg/dL (7-20) Creatinine 0.7 mg/dL (0.6-1.0) Estimated GFR (Cockcroft-Gault) 80.9 BUN/Creatinine Ratio 23 (6-20) Glucose Level 93 mg/dL (70-99) Calcium Level 8.6 mg/dL (8.5-10.1) Magnesium Level 2.1 mg/dL (1.8-2.4) Total Bilirubin 0.2 mg/dL (0.2-1.0) Aspartate Amino Transf (AST/SGOT) 15 U/L (15-37) Alanine Aminotransferase (ALT/SGPT) 18 U/L (14-59) Alkaline Phosphatase 78 U/L (46-116) Troponin I High Sensitivity 8 ng/L (4-50) MT-Wur-T-Type Natriuretic Peptide 582 pg/mL (0-449) Total Protein 7.6 g/dL (6.4-8.2) Albumin 3.6 g/dL (3.4-5.0) Albumin/Globulin Ratio 0.9 (1.0-1.7) SARS-CoV-2 RNA (GENARO) Negative (Negative) SARS-CoV-2 Antigen (Rapid) Negative (NEGATIVE) Allergies: Coded Allergies: Iodinated Contrast Media (Verified Adverse Reaction, Severe, SEIZURES, 05/22/20) Medications: Current Medications Medications (Trade) Dose Ordered Sig/Pedro Route PRN Reason Start Time Stop Time Status Last Admin Dose Admin Morphine Sulfate (Morphine Sulfate) 4 mg 1X ONCE IVP 09/25/21 15:15 09/25/21 15:16 DC 09/25/21 15:19 Ondansetron HCl (Zofran) 4 mg PRN Q8HRS PRN IVP NAUSEA/VOMITING 09/25/21 15:30 09/26/21 15:29 09/26/21 07:00 Morphine Sulfate (Morphine Sulfate) 4 mg PRN Q2HR PRN IVP PAIN 09/25/21 15:30 09/26/21 15:29 09/25/21 23:19 Alprazolam (Xanax) 0.5 mg BID PO 09/26/21 11:00 09/26/21 12:14 Polyethylene Glycol (miraLAX PACKET) 17 gm DAILY PO 09/26/21 11:00 09/26/21 12:16 Tizanidine HCl (Zanaflex) 4 mg BID PO 09/26/21 11:00 09/26/21 12:15 Pantoprazole Sodium (Protonix) 40 mg DAILYAC PO 09/26/21 11:00 09/26/21 12:15 Losartan Potassium (Cozaar) 50 mg DAILY PO 09/26/21 11:00 09/26/21 12:14 Hydrochlorothiazide (Microzide) 12.5 mg DAILY PO 09/26/21 11:00 09/26/21 12:14 Sucralfate (Carafate Oral Susp) 1 gm QIDACHS PO 09/26/21 11:30 09/26/21 12:16 PE: GEN: NAD HEENT: Atraumatic, PERRLA LUNGS: CTAB HEART: RRR, no murmurs ABD: NABS, S/ND/NT, no masses EXTREMITY: No edema SKIN: No rashes, no jaundice NEURO/PSYCH: A & O 3 A/P: A/P: IMP: Microcytic anemia, likely iron-deficient, with heme positive stool. Not much on colonoscopy 5 years ago and unlikely to have meaningful lesion there. More UGI symptoms currently. GERD Diverticulosis H/o hyperplastic polyp. H/o ischemic colitis--typically this is a self-limited condition and not a chronic source of issues. REC: Iron studies to document iron-deficiency. She says dose of PPI increased; agree with this. EGD seems not unreasonable given more symptoms; will try for tomorrow. --other pending. ARLENE RUIZ MD Sep 26, 2021 13:03
[2021-09-26] MEDS: GABAPENTIN 300 MG CAPSULE. PO SCH ×2 (14:51→21:23)
[2021-09-26] MEDS: oxyCODONE/APAP 10/325 1 TAB TABLET PO PRN ×2 (14:52→22:01)
[2021-09-26 15:00] VITALS: BP 124/61
[2021-09-26 19:20] VITALS: BP 147/72
[2021-09-26] MEDS: PRAMIPEXOLE 0.25 MG TABLET. PO SCH (21:22)
[2021-09-26] MEDS ORDERED: FLUT1DIS IH (22:11)
[2021-09-26] MEDS ORDERED: ALBU0.63 NEB (22:11)
[2021-09-26 23:00] VITALS: BP 132/69
[2021-09-27 03:00] VITALS: BP 135/65
[2021-09-27 07:00] VITALS: BP 130/65
[2021-09-27 07:06] LABS: HEMATOCRIT 31.9 % (36.0-47.0); HEMOGLOBIN 9.6 g/dL (12.0-15.5); RED BLOOD COUNT 4.35 x10^6/uL (3.50-5.40); RED CELL DISTRIBUTION WIDTH 19.5 % (11.5-14.5); WHITE BLOOD COUNT 9.6 x10^3/uL (4.0-11.0)
[2021-09-27] MEDS: POLYETHYLENE GLYCOL 3350 17 GM PACKET. PO SCH (07:18)
[2021-09-27] MEDS: LOSARTAN POTASSIUM 50 MG TABLET. PO SCH (07:18)
[2021-09-27] MEDS: SUCRALFATE 1 GM/10 ML ORAL.SUSP. PO SCH ×4 (07:18→20:21)
[2021-09-27] MEDS: hydroCHLOROthiazide 12.5 MG CAPSULE PO SCH (07:18)
[2021-09-27] MEDS: PANTOPRAZOLE 40 MG TABLET.DR. PO SCH (07:18)
[2021-09-27] MEDS: GABAPENTIN 300 MG CAPSULE. PO SCH ×3 (07:19→20:21)
[2021-09-27] MEDS: ALPRAZolam 0.5 MG TABLET PO SCH ×2 (07:19→20:21)
[2021-09-27] MEDS: tiZANidine 4 MG TABLET. PO SCH ×2 (07:19→20:21)
--- NOTE | 2021-09-27 08:27 | PDOC ---
Provider Note Date of Service: DATE: 09/27/21 TIME: 08:26 Provider Note R hip xr same as 2019, no pain when off feet- will ask IR to consider depomedrol hip inject, but egd first for dysphagia/anemia/heme + stools- she agrees Justifications for Admission Other Justification MARLA MARTINEZ MD Sep 27, 2021 08:27
[2021-09-27] MEDS ORDERED: BUPIVACAINE MPF 0.5% 10 ML VIAL. IJ ONE (09:00)
[2021-09-27] MEDS ORDERED: NON FORMULARY ITEM (Losartan/Hydrochlorothiazide (Losartan-Hctz 50-12.5 Mg Tab) 1 TAB) PO SCH (09:00)
[2021-09-27] MEDS ORDERED: methylPREDNISolone ACETATE 80 MG/ML VIAL. INT ART ONE (09:00)
[2021-09-27] MEDS ORDERED: LIDOCAINE 1% Multi-Dose 20 ML VIAL. INJ ONE (09:00)
--- NOTE | 2021-09-27 09:36 | HP ---
DATE OF SERVICE: 09/26/2021 ADMIT DATE: 09/25/2021 CHIEF COMPLAINT: Right groin pain and weakness. HISTORY OF PRESENT ILLNESS: A 73-year-old white female with multiple medical problems including chronic nonmalignant pain, COPD, and abdominal aortic aneurysm who was seen in our office by Dr. Lubin in about 5 days prior to admission. Hemoglobin at that time was 8.6. CT of the abdomen and pelvis showed a large aortic aneurysm, but no other abnormality to account for the pain she was having. Pain increased with her difficulty in bearing weight and she was admitted for further evaluation. She describes significant esophageal dysfunction with heartburn, some dysphagia, some odynophagia, but no vomiting, melena, hematochezia, weight loss or other symptoms. She is not aware of having had an EGD in the past, but colonoscopy was about 3 years ago. She takes Prilosec 20 mg daily for acid reflux, but has not increased the dose and denies any aspirin or NSAID use. PAST MEDICAL HISTORY: Multiple problems. MEDICATIONS: Listed per the chart multiple meds. ALLERGIES: No allergies. PAST SURGICAL HISTORY: She has a spinal stimulator in place, which is monitored by pain management to my knowledge. She has had a hysterectomy. SOCIAL HISTORY: Daughter says she is still moderate smoker, nondrinker, and lives at home selling, retired and not physically active given her infirmities. FAMILY HISTORY: Unremarkable. REVIEW OF SYSTEMS: No other complaints. OBJECTIVE: ENT: All within normal limits. Mild pallor only is noted. NECK: No masses, nodes or JVD. LUNGS: Decreased breath sounds. No active wheezes or tachypnea. CARDIOVASCULAR: Regular rate. No irregular beat, murmur or tachycardia. Grade 2 systolic flow murmur is noted. ABDOMEN: Soft, benign and nontender. EXTREMITIES: Reduced pedal pulses bilaterally, 1-2+ clubbing in the fingernails. Flexion of the right hip causes some pain. Range of motion generally reduced in all joints. NEUROLOGIC: Physiologic and nonfocal. Alert, responsive. ASSESSMENT: 1. Right groin pain appears to be hip in origin. X-ray 2019 showed mild arthritis, which would not account with this recent acute onset. No known history of any trauma. 2. Normocytic anemia, likely secondary to esophageal symptoms that she is having. Given her tobacco use, she is at risk for Floyd's and esophageal malignancy and does have heme-positive stool. PLAN: We will use higher dose PPI and we will add Carafate and follow up hemoglobin daily. GI consultation to arrange EGD. We will get another x-ray of her hip and evaluate further from there. DIMAS/MARIANNE/TONIO DR: DIMAS/cliff TID: [id number]
--- NOTE | 2021-09-27 10:22 | NUR ---
Dr. Aguilar paged overhead 2 times and voicemail left at his office in regards to the type of injection to use in patients R Hip Injection with no answer.
--- NOTE | 2021-09-27 10:56 | NUR ---
SW following. Discussed with RN, pt from home alone, room air, NPO, COVID-19 negative. Pt gets around ok per RN. GI following - EGD today. Pt getting hip injection today also. RN advised no SW needs at this time. SW will continue to follow.
[2021-09-27 11:00] VITALS: BP 127/70
[2021-09-27 14:10] VITALS: BP 152/75
--- NOTE | 2021-09-27 14:38 | RAD ---
EXAM: Right hip joint injection WITH Fluoroscopic guidance DATE: 09/27/2021 1:20 PM CLINICAL HISTORY: Reason: R hip steroid injection / Spl. Instructions: LIDO,BUPIVICAINE,80 DEPO ORDER ED / History: COMPARISON: None pertinent TECHNIQUE: The patient was informed of the indications and alternatives for this procedure as well as risks and benefits. No immediate contraindication identified. The patient provided informed, written consent. Laterality was confirmed by the entire team following a time out. Following initial right hip joint localization, a suitable area was sterilely prepped and draped. Loc al anesthesia was administered with 1% xylocaine. With intermittent fluoroscopic observation, a 22-ga uge spinal needle was advanced into the right hip joint sheath/capsule with confirmation of intra-syn ovial position with infusion of less than 3 cc room air. Subsequent infusion 1 mL Depo-Medrol 80 mg/m L and 4 mL bupivacaine 0.5 percent. Hemostasis with local pressure. Local clinical exam negative for immediate complication. Patient informed re local potential signs or symptoms that may indicate need to return to ER/Ordering physician for further evaluation. Patient informed re precautionary measures after intra-synovial in jection of anesthetic. Patient informed re potential for short term increase local symptomatology due to steroid flare. Patient expressed understanding. Performing Physicians: Dr. Zack Virgen Blood Loss: 0 cc Total Fluoroscopy time: 0.1 minutes Total spot images taken: 0 IMPRESSION: Successful intra-synovial injection right hip joint with steroid and anesthetic per clinical request. Electronically signed by: Ángel Viregn MD (09/27/2021 2:36 PM) [id number] CUSTOM FIELD 1
--- NOTE | 2021-09-27 14:46 | PDOC4 ---
PROCEDURE Procedure EGD/biopsies Indication: DARLING/increasing dyspepsia Meds: per anesthesia. Findings: E--Normal. If reflux, healed. G--Large HH with associated "Jonatan lesions". Patchy erythema in antrum, biopsied. D--Normal to second portion; biopsied second portion. Neal well. IMP: HH with Jonatan lesions; may be source of the anemia. REC: Continue PPI. Await biopsies. PO iron at discharge; may need chronically. Could consider repeating colonoscopy as outpatient, but probably low yield. ARLENE RUIZ MD Sep 27, 2021 14:46
[2021-09-27] MEDS ORDERED: PROPOFOL 10 MG/ML (20ML) VIAL. IV ONE (17:14)
[2021-09-27] MEDS ORDERED: LIDOCAINE 2% PF 5 ML VIAL. ONE (17:14)
[2021-09-27 19:00] VITALS: BP 140/91
[2021-09-27] MEDS: ALBUTEROL SULFATE 2.5 MG/3 ML NEBU. NEB PRN (19:23)
[2021-09-27] MEDS: PRAMIPEXOLE 0.25 MG TABLET. PO SCH (20:21)
[2021-09-27] MEDS: oxyCODONE/APAP 10/325 1 TAB TABLET PO PRN (20:21)
[2021-09-27 23:00] VITALS: BP 123/63
[2021-09-28 03:00] VITALS: BP 135/73
[2021-09-28] MEDS: oxyCODONE/APAP 10/325 1 TAB TABLET PO PRN (03:16)
[2021-09-28 04:45] LABS: HEMATOCRIT 28.4 % (36.0-47.0); HEMOGLOBIN 8.7 g/dL (12.0-15.5); RED BLOOD COUNT 3.91 x10^6/uL (3.50-5.40); RED CELL DISTRIBUTION WIDTH 19.3 % (11.5-14.5); WHITE BLOOD COUNT 9.5 x10^3/uL (4.0-11.0)
[2021-09-28 07:00] VITALS: BP 145/66
[2021-09-28] MEDS: ALBUTEROL SULFATE 2.5 MG/3 ML NEBU. NEB PRN (07:10)
--- NOTE | 2021-09-28 08:09 | PDOC ---
Provider Note Date of Service: DATE: 09/28/21 TIME: 08:09 Provider Note [id number] Justifications for Admission Other Justification MARLA MARTINEZ MD Sep 28, 2021 08:09
--- NOTE | 2021-09-28 08:18 | DS ---
DATE OF DISCHARGE: 09/28/2021 HOSPITAL SUMMARY: A 76-year-old white female who came in with ongoing right hip pain and weakness and symptoms of esophagitis. She had heme-positive stool for blood. Hemoglobin was 9.1, down to 8.7 with a normal white count and platelet count. Chemistry profile was normal. Iron low at 31, TIBC normal at 272. COVID serology negative. Hip x-ray on the right side showed mild arthritis on both sides. No sign of acute injury. She underwent EGD per Dr. Parker. The findings are pending, but biopsies were done and she is feeling somewhat better. She had a right hip arthrocentesis and steroid injection to see if that will assist in her pain and she is able to be followed as an outpatient at this point. FINAL DIAGNOSES: 1. Chest pain and odynophagia secondary to esophagitis. Etiology undetermined. 2. Anemia secondary to esophageal bleeding. 3. Right hip pain secondary to degenerative joint disease. OPERATIONS AND PROCEDURES: EGD and biopsy, right hip arthrocentesis and steroid injection. COMPLICATIONS: None. CONSULTATION: Interventional radiology and Dr. Medina. DISPOSITION: Increase Prilosec to 40 mg daily and add 5 more days of Carafate. She is taking here. Home meds all remain the same. Office followup with Dr. Medina for test results and we will see her on an as needed basis based on her response to the addition of Carafate. DIMAS/JEFF MELVIN: Shanti TID: [id number]
[2021-09-28] MEDS: ALPRAZolam 0.5 MG TABLET PO SCH (08:31)
[2021-09-28] MEDS: PANTOPRAZOLE 40 MG TABLET.DR. PO SCH (08:31)
[2021-09-28 08:32] VITALS: BP 145/66
[2021-09-28] MEDS: POLYETHYLENE GLYCOL 3350 17 GM PACKET. PO SCH (08:32)
[2021-09-28] MEDS: LOSARTAN POTASSIUM 50 MG TABLET. PO SCH (08:32)
[2021-09-28] MEDS: tiZANidine 4 MG TABLET. PO SCH (08:32)
[2021-09-28] MEDS: hydroCHLOROthiazide 12.5 MG CAPSULE PO SCH (08:32)
[2021-09-28] MEDS: SUCRALFATE 1 GM/10 ML ORAL.SUSP. PO SCH (08:33)
[2021-09-28] MEDS: GABAPENTIN 300 MG CAPSULE. PO SCH (08:53)
--- NOTE | 2021-09-28 10:30 | NUR ---
SW following. Discussed with RN, discharge order for home with self care. RN advised no SW needs.
--- NOTE | 2021-09-28 10:56 | NUR ---
Pt discharged home with at approx 1032. Left facility via w/c to car. IV was discontinued prior to leaving
--- NOTE | 2021-09-28 16:15 | PATHOLOGY ---
[facility] Accession Number: [id number] . 01 Material submitted: . PART A: duodenum - DUODENUM BIOPSY PART B: gastrointestinal site - GASTRIC ANTRUM BIOPSY . 01 Clinical history: . ANEMIA, ABD PAIN EGD . 02 Diagnosis: A. Duodenal biopsy: - No diagnostic abnormalities. . B. Gastric biopsy, antrum: - No significant pathologic abnormalities. (JPM:wenceslao; 09/28/2021) S 09/28/2021 1427 Local . 02 Comment: Sections of the duodenal biopsy reveal segments of duodenal and small intestine mucosa. Where best oriented, the mucosal villi show no sprue-like changes or significant inflammatory changes. . Sections of the gastric antral biopsy reveal segments of gastric antral/body transition mucosa showing focal congestion and no significant inflammation. A properly controlled immunoperoxidase stain for Helicobacter is negative for Helicobacter organisms. (JPM:wenceslao; 09/28/2021) . Special stain performed: Immunoperoxidase stain for Helicobacter on B1 . 02 Electronically signed: . Shad Vargas MD, Pathologist NPI- [id number] . 01 Gross description: . A. The specimen is submitted in formalin, labeled "Vale Parker, duodenal biopsy". Received are 3 segments of pale esteban tissue ranging in size from 0.2 to 0.4 cm in maximum dimensions. The specimen is submitted entirely in cassette A1. . B. The specimen is received in formalin, labeled "Vale Parker, gastric antrum BX". Received is a single segment of pale esteban tissue measuring 0.6 cm in maximum dimensions. The specimen is submitted entirely in cassette B1. ([facility]; 09/27/2021) NRI/NRI 09/27/20212037 Local . 02 Pathologist provided ICD-10: D64.9, R10.9 . 02 CPT . 132942, 876511, W44457 Specimen Comment: A courtesy copy of this report has been sent to [phone] Specimen Comment: Report sent to / DR MARTINEZ Specimen Comment: A duplicate report has been generated due to demographic updates. Performed at: 01 [facility] [address] [facility] [address], [place] [id number] MD Alex Brennan MD Phone: [phone] Performed at: 02 [facility] [address] [place], [place] [id number] MD Shad Vargas MD Phone: [phone]
== END 2021-09-28 10:36 | disposition home or self-care (01) | DRG 370 ==
LOC: ER 13:07 → 4 NORTH 15:05
PROVIDERS: ADMIT Family Medicine; ATTEND Family Medicine
PROC: 0DB68ZX Excision of Stomach, Via Natural or Artificial Opening Endoscopic, Diagnostic (ICD-10-PCS; 2021-09-27)
PROC: 0S993ZZ Drainage of Right Hip Joint, Percutaneous Approach (ICD-10-PCS; 2021-09-27)
PROC: 3E0U33Z Introduction of Anti-inflammatory into Joints, Percutaneous Approach (ICD-10-PCS; 2021-09-27)
PROC: 3E0U3BZ Introduction of Anesthetic Agent into Joints, Percutaneous Approach (ICD-10-PCS; 2021-09-27)
PROC: 0DB98ZX Excision of Duodenum, Via Natural or Artificial Opening Endoscopic, Diagnostic (ICD-10-PCS; principal; 2021-09-27 14:30)
DX: K21.01 Gastro-esophageal reflux disease with esophagitis, with bleeding (principal); K57.90 Diverticulosis of intestine, part unspecified, without perforation or abscess without bleeding; D50.0 Iron deficiency anemia secondary to blood loss (chronic); F17.210 Nicotine dependence, cigarettes, uncomplicated; G89.29 Other chronic pain; I10 Essential (primary) hypertension; I71.4 Abdominal aortic aneurysm, without rupture; J44.9 Chronic obstructive pulmonary disease, unspecified; K64.9 Unspecified hemorrhoids; M16.11 Unilateral primary osteoarthritis, right hip; M41.9 Scoliosis, unspecified; R13.10 Dysphagia, unspecified; Z87.442 Personal history of urinary calculi; Z90.710 Acquired absence of both cervix and uterus
CPT/HCPCS: 20610; 36415; 43239; 73502; 74176; 77002; 80053; 82274; 83540; 83550; 83735; 83880; 84484; 85025; 85027; 85610; 85730; 86850; 86900; 86901; 87426; 88305; 88342; 93005; 94640; 94760; 96374; J1040; J2270; J2405; J2704; J3490; U0003; U0005; 99285-25; G0378; J7613

== ENCOUNTER 2021-12-27 11:47 | Inpatient (IN) | payer MEDICARE, BC ==
[~2021-12-27] VITALS: Ht 149.9 cm; Wt 70.9 kg
[~2021-12-27 11:47] MED LIST changes: +ALBU0.63 NEB; +FLUT1DIS IH
[2021-12-27] MEDS ORDERED: IPRATRPIUM/ALBUTEROL 0.5/2.5MG 3 ML NEBU. NEB ONE (12:15)
[2021-12-27] MEDS ORDERED: methylPREDNISolone SOD SUCC PF 125 MG/2 ML VIAL. IV ONE (12:15)
--- NOTE | 2021-12-27 12:21 | RAD ---
EXAM: Chest, single view. HISTORY: Cough. Shortness of air. COMPARISON: 01/31/2020 FINDINGS: A frontal view of the chest is obtained. There is bilateral lower lobe interstitial infiltr ate superimposed on suspected chronic interstitial changes. There is no consolidation, pleural effusi on or pneumothorax. There is a moderate hiatal hernia. The heart is normal in size. There are dorsal column stimulator leads overlying the vertebral column. IMPRESSION: Suspected bilateral lower lobe interstitial infiltrate superimposed on chronic interstiti al changes. Electronically signed by: Catherine España MD (12/27/2021 12:19 PM) [id number]
--- NOTE | 2021-12-27 12:27 | PHYS DOC ---
Past Medical History Past Medical History: COPD, Hypertension, Other Additional Past Medical Histor: CHRONIC BACK PAIN,HEMORRHOID,HIATAL HERNIA,AAA Past Surgical History: Hysterectomy, Tonsillectomy, Other Additional Past Surgical Histo: SPINAL STIMULATOR,HIP SX,SHOULDER SX,PAIN PUMP Smoking Status: Current Every Day Smoker Alcohol Use: None Drug Use: None General Adult EDM: Chief Complaint: SHORTNESS OF BREATH HPI: HPI: Patient is a 76 year old female who presents with 5 days of wheezing, shortness of breath, dizziness when getting up and cough. She states she has been using her nebulizer and inhalers at home but does not really work. She has had her Covid vaccines in booster. She had a virtual appointment with her primary care doctor today and they stated that she needed to come into the hospital to be evaluated. Patient denies chest pain, abdominal pain, nausea, vomiting, diarrhea, fever, headache, syncope, focal weakness, numbness or tingling, swelling. Patient has a history of hysterectomy, pain pump, tonsillectomy, smoking, hip surgery, shoulder surgery, COPD, chronic back pain, hemorrhoids, hiatal hernia, AAA, hypertension, spinal stimulator. Review of Systems: Review of Systems: Constitutional: Denies fever or chills. [] Eyes: Denies change in visual acuity. [] HENT: Denies nasal congestion or sore throat. [] Respiratory: + cough or +shortness of breath. [] Cardiovascular: Denies chest pain or edema. [] GI: Denies abdominal pain, nausea, vomiting, bloody stools or diarrhea. [] : Denies dysuria. [] Musculoskeletal: Denies back pain or joint pain. [] Integument: Denies rash. [] Neurologic: Denies headache, focal weakness or sensory changes. + Intermittent dizziness [] Endocrine: Denies polyuria or polydipsia. [] Lymphatic: Denies swollen glands. [] Psychiatric: Denies depression or anxiety. [] Heart Score: C/O Chest Pain: No HEART Score for Chest Pain: HEART Score for Chest Pain Response (Comments) Value History Slighlty/Non-Suspicious 0 ECG Nonspecific Repolarizatio 1 Age > 65 2 Risk Factors 1 or 2 Risk Factors 1 Total 4 Risk Factors: Risk Factors: DM, Current or recent (<one month) smoker, HTN, HLP, family history of CAD, obesity. Risk Scores: Score 0 - 3: 2.5% MACE over next 6 weeks - Discharge Home Score 4 - 6: 20.3% MACE over next 6 weeks - Admit for Clinical Observation Score 7 - 10: 72.7% MACE over next 6 weeks - Early Invasive Strategies Current Medications: Current Medications Medications (Trade) Dose Ordered Sig/Pedro Start Time Stop Time Status Last Admin Dose Admin Albuterol/ Ipratropium (Duoneb) 6 ml 1X ONCE 12/27/21 12:15 12/27/21 12:16 DC Methylprednisolone Sodium Succinate (SOLU-Medrol 125MG VIAL) 125 mg 1X ONCE 12/27/21 12:15 12/27/21 12:16 DC Allergies: Allergies: Allergies Coded Allergies Type Severity Reaction Last Updated Verified Iodinated Contrast Media Adverse Reaction Severe SEIZURES 09/27/21 Yes Physical Exam: PE: Constitutional: Well developed, well nourished, no acute distress, non-toxic appearance. [] HENT: Normocephalic, atraumatic, bilateral external ears normal, oropharynx moist, no oral exudates, nose normal. [] Eyes: PERRLA, EOMI, conjunctiva normal, no discharge. [] Neck: Normal range of motion, no tenderness, supple, no stridor. [] Cardiovascular:Heart rate regular rhythm, no murmur [] Lungs & Thorax: Bilateral upper breath sounds inspiratory expiratory wheezing and lower diminished to auscultation [] Abdomen: Bowel sounds normal, soft, no tenderness, no masses, no pulsatile masses. [] Skin: Warm, dry, no erythema, no rash. [] Back: No tenderness, no CVA tenderness. [] Extremities: No tenderness, no cyanosis, no clubbing, ROM intact, no edema. [] Neurologic: Alert and oriented X 3, normal motor function, normal sensory function, no focal deficits noted. [] Psychologic: Affect normal, judgement normal, mood normal. [] EKG: EK and read by Dr. Anaya is a sinus rhythm with a right bundle branch block but no STEMI Radiology/Procedures: Radiology/Procedures: [] Impression: [facility] [address] [place] [address] IMAGING REPORT Signed PATIENT: JARVIS THOMSON ACCOUNT: [id number] : 1945 LOCATION: ER AGE: 76 SEX: F EXAM STATUS: REG ER ORD. PHYSICIAN: KATHERYN MCDOWELL APRN REASON: soa, cough PROCEDURE: PORTABLE CHEST 1V EXAM: Chest, single view. HISTORY: Cough. Shortness of air. COMPARISON: 01/31/2020 FINDINGS: A frontal view of the chest is obtained. There is bilateral lower lobe interstitial infiltrate superimposed on suspected chronic interstitial changes. There is no consolidation, pleural effusion or pneumothorax. There is a moderate hiatal hernia. The heart is normal in size. There are dorsal column stimulator leads overlying the vertebral column. IMPRESSION: Suspected bilateral lower lobe interstitial infiltrate superimposed on chronic interstitial changes. Electronically signed by: Catherine Solares MD (12/27/2021 12:19 PM) [id number] DICTATED and SIGNED BY: CATHERINE SOLARES MD DATE: 12/27/21 [id number] Course & Med Decision Making: Course & Med Decision Making Pertinent Labs and Imaging studies reviewed. (See chart for details) COVID-19 CRITERIA: The patient was evaluated during the global COVID-19 pandemic, and that diagnosis was suspected/considered upon their initial presentation. Their evaluation, treatment and testing was consistent with current guidelines for patients who present with complaints or symptoms that may be related to COVID-19. See HPI. Alert and oriented x4. Ambulatory steady gait. Speaks in full sentences. Upper lung lobes have inspiratory wheezing in lower lung lobes are diminished. Skin pink warm and dry. No extremity edema. Patient states after breathing treatments she is feeling slightly better. She is on 2 L of oxygen at this time and satting at 94%. Patient is moving air more clear clear but she is having some wheezing. Rapid Covid is negative. Influenza is negative. Patient is given azithromycin and Rocephin. She is given a liter of normal saline. She is going to be admitted for Dr. Heaton who is on-call for Dr. Martinez. [] Woodrow Disclaimer: Woodrow Disclaimer: This electronic medical record was generated, in whole or in part, using a voice recognition dictation system. COVID-19 Patient Risks: Age 65 or older: Yes Sign of co-morbidity: Yes Exp to person + for COVID: No Exp to PUI: No Travel from affected area: No Lower respiratory symptoms: Yes Fever: No Other: No PPE Use: Full PPE with N95 mask or PAPR: Yes Departure Departure Impression: Primary Impression: COPD exacerbation Additional Impressions: Pneumonia Qualified Codes: J18.9 - Pneumonia, unspecified organism Person under investigation for COVID-19 Disposition: ADMITTED INPATIENT Admitting Physician: Manuel Heaton Condition: STABLE Referrals: MARLA MARTINEZ MD (PCP) KATHERYN MCDOWELL APRN Dec 27, 2021 12:27
[2021-12-27 12:39] LABS: BASE EXCESS COOX 0 mmol/L (-3-3); HCO3 COOX 24 mmol/L (21-28); METHEMOGLOBIN 0.3 % (0.0-1.9); OXYHEMOGLOBIN 91.5 %; PCO2 COOX 37 mmHg (35-46); PO2 COOX 68 mmHg (65-108); SAT O2 COOX 92 % (92-99)
[2021-12-27 12:42] LABS: BASO # 0.1 x10^3/uL (0.0-0.2); BASO % 1 % (0-3); EOS # 0.6 x10^3/uL (0.0-0.7); EOS % 9 % (0-3); HEMATOCRIT 40.6 % (36.0-47.0); HEMOGLOBIN 12.7 g/dL (12.0-15.5); LYMPH # 1.4 x10^3/uL (1.0-4.8); LYMPH % 20 % (24-48); MEAN CORPUSCULAR HEMOGLOBIN 27 pg (25-35); MEAN CORPUSCULAR HGB CONC 31 g/dL (31-37); MEAN CORPUSCULAR VOLUME 85 fL (79-100); MONO # 0.6 x10^3/uL (0.0-1.1); MONO % 9 % (0-9); NEUT # 4.1 x10^3/uL (1.8-7.7); NEUT % 60 % (31-73); PLATELET COUNT 160 x10^3/uL (140-400); RED BLOOD COUNT 4.75 x10^6/uL (3.50-5.40); RED CELL DISTRIBUTION WIDTH 22.8 % (11.5-14.5); WHITE BLOOD COUNT 6.7 x10^3/uL (4.0-11.0)
[2021-12-27 12:56] LABS: INFLUENZA A PATIENT NEGATIVE (NEGATIVE); INFLUENZA B PATIENT NEGATIVE (NEGATIVE)
[2021-12-27 13:06] LABS: CALCIUM 8.4 mg/dL (8.5-10.1); CREATININE 0.7 mg/dL (0.6-1.0); GFR 80.9; POTASSIUM 4.5 mmol/L (3.5-5.1)
[2021-12-27 13:10] LABS: ALBUMIN 3.8 g/dL (3.4-5.0); TOTAL BILIRUBIN 0.2 mg/dL (0.2-1.0); TOTAL PROTEIN 7.8 g/dL (6.4-8.2)
[2021-12-27 13:48] LABS: BILIRUBIN,URINE NEGATIVE (NEG); CLARITY,URINE CLEAR; COLOR,URINE YELLOW; NITRITE,URINE NEGATIVE (NEG); PH,URINE 7.5 (<5.0-8.0); PROTEIN,URINE NEGATIVE (NEG-TRACE); UROBILINOGEN,URINE 0.2 mg/dL (0.2 mg/dL)
[2021-12-27 14:02] LABS: BACTERIA,URINE 0 /HPF (0-FEW); RBC,URINE RARE /HPF (0-2); WBC,URINE 0 /HPF (0-4)
[2021-12-27] MEDS ORDERED: AZITHROMYCIN 500 MG in IV NORMAL SALINE 250ML 250 ML IV ONE (14:30)
[2021-12-27] MEDS ORDERED: cefTRIAXone IV Push 1 GM VIAL. IVP ONE (14:30)
[2021-12-27] MEDS ORDERED: IV NORMAL SALINE 1000ML BAG 1,000 ML IV ONE (15:00)
[2021-12-27] MEDS: IPRATRPIUM/ALBUTEROL 0.5/2.5MG 3 ML NEBU. NEB SCH ×2 (15:09→20:00)
[2021-12-27 15:15] LABS: PLT ESTIMATE ADEQUATE (ADEQUATE)
[2021-12-27 15:17] LABS: HYPOCHROMIA SLIGHT; MICROCYTOSIS SLIGHT; OVALOCYTES OCC; STOMATOCYTES OCC; TARGET CELLS OCC
[2021-12-27] MEDS: methylPREDNISolone SOD SUCC PF 125 MG/2 ML VIAL. IV SCH (22:20)
[2021-12-27 22:22] VITALS: BP 178/101
[2021-12-27 23:00] VITALS: BP 184/107
[2021-12-27] MEDS ORDERED: ACETAMINOPHEN 325 MG TABLET. PO PRN (23:15)
[2021-12-27] MEDS: oxyCODONE/APAP 10/325 1 TAB TABLET PO PRN (23:25)
[2021-12-27] MEDS: hydroCHLOROthiazide 12.5 MG CAPSULE PO SCH (23:25)
[2021-12-27] MEDS: LOSARTAN POTASSIUM 50 MG TABLET. PO SCH (23:25)
[2021-12-27] MEDS: ALPRAZolam 0.5 MG TABLET PO SCH (23:25)
[2021-12-28 03:00] VITALS: BP 177/87
[2021-12-28] MEDS: oxyCODONE/APAP 10/325 1 TAB TABLET PO PRN ×2 (05:48→19:43)
[2021-12-28] MEDS: methylPREDNISolone SOD SUCC PF 125 MG/2 ML VIAL. IV SCH ×3 (05:48→19:43)
--- NOTE | 2021-12-28 06:29 | EKG ---
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
[2021-12-28 07:00] VITALS: BP 182/101
[2021-12-28 07:57] LABS: BASO % 0 % (0-3); EOS % 0 % (0-3); HEMATOCRIT 42.8 % (36.0-47.0); HEMOGLOBIN 13.6 g/dL (12.0-15.5); LYMPH # 0.8 x10^3/uL (1.0-4.8); LYMPH % 11 % (24-48); MEAN CORPUSCULAR HEMOGLOBIN 27 pg (25-35); MEAN CORPUSCULAR HGB CONC 32 g/dL (31-37); MEAN CORPUSCULAR VOLUME 85 fL (79-100); MONO # 0.1 x10^3/uL (0.0-1.1); MONO % 2 % (0-9); NEUT # 6.4 x10^3/uL (1.8-7.7); NEUT % 88 % (31-73); PLATELET COUNT 164 x10^3/uL (140-400); RED BLOOD COUNT 5.02 x10^6/uL (3.50-5.40); RED CELL DISTRIBUTION WIDTH 23.2 % (11.5-14.5); WHITE BLOOD COUNT 7.3 x10^3/uL (4.0-11.0)
[2021-12-28] MEDS ORDERED: IPRATROPIUM/ALBUTEROL 20/100mcg/INH INHALER. INH SCH (08:00)
[2021-12-28 08:25] LABS: ALBUMIN 3.7 g/dL (3.4-5.0); ALBUMIN/GLOBULIN RATIO 0.8 (1.0-1.7); CALCIUM 8.6 mg/dL (8.5-10.1); CREATININE 0.7 mg/dL (0.6-1.0); GFR 80.9; POTASSIUM 3.5 mmol/L (3.5-5.1); TOTAL BILIRUBIN 0.4 mg/dL (0.2-1.0); TOTAL PROTEIN 8.3 g/dL (6.4-8.2)
[2021-12-28] MEDS ORDERED: NON FORMULARY ITEM (Losartan/Hydrochlorothiazide (Losartan-Hctz 50-12.5 Mg Tab) 1 TAB) PO SCH (09:00)
[2021-12-28] MEDS ORDERED: ALPRAZolam 0.5 MG TABLET PO SCH (09:00)
[2021-12-28] MEDS: IPRATRPIUM/ALBUTEROL 0.5/2.5MG 3 ML NEBU. NEB SCH ×4 (09:00→20:50)
[2021-12-28] MEDS: tiZANidine 4 MG TABLET. PO SCH ×2 (09:08→19:43)
[2021-12-28] MEDS: GABAPENTIN 300 MG CAPSULE. PO SCH ×3 (09:08→19:43)
[2021-12-28] MEDS: hydroCHLOROthiazide 12.5 MG CAPSULE PO SCH (09:08)
[2021-12-28] MEDS: LOSARTAN POTASSIUM 50 MG TABLET. PO SCH (09:08)
[2021-12-28] MEDS: PANTOPRAZOLE 40 MG TABLET.DR. PO SCH (09:08)
[2021-12-28] MEDS: CHOLECALCIFEROL (VITAMIN D3) 1,000 UNIT TABLET PO SCH (09:09)
[2021-12-28] MEDS: ALPRAZolam 0.5 MG TABLET PO SCH ×2 (09:09→19:43)
[2021-12-28] MEDS: cefTRIAXone IV Push 1 GM VIAL. IVP SCH (10:00)
[2021-12-28 11:00] VITALS: BP 132/69
--- NOTE | 2021-12-28 11:43 | NUR ---
SW following. Discussed with RN, pt from home with family, 2L (does not use oxygen at home), cardiac diet, Flu and COVID-19 negative. Pulmonology following. RN advised no SW needs at this time. SW will continue to follow.
--- NOTE | 2021-12-28 12:28 | PDOC ---
PULMONARY PROGRESS NOTES DATE: 12/28/21 TIME: 12:28 Vitals Vital Signs Date Time Temp Pulse Resp B/P (MAP) Pulse Ox O2 Delivery O2 Flow Rate FiO2 12/28/21 11:00 96 Nasal Cannula 2.0 12/28/21 09:08 109 182/101 12/28/21 07:00 97.4 97.4 12/28/21 03:00 24 General: Alert, No acute distress Lungs: Clear Cardiovascular: S1, S2 Abdomen: Soft, Non-tender Extremities: No Edema Labs Laboratory Tests Test 12/27/21 11:51 12/27/21 12:14 12/27/21 12:39 12/27/21 15:07 Urine Collection Type Unknown Urine Color Yellow Urine Clarity Clear Urine pH 7.5 (<5.0-8.0) Urine Specific [place] 1.010 (1.000-1.030) Urine Protein Negative mg/dL (NEG-TRACE) Urine Glucose (UA) Negative mg/dL (NEG) Urine Ketones (Stick) Negative mg/dL (NEG) Urine Blood Negative (NEG) Urine Nitrite Negative (NEG) Urine Bilirubin Negative (NEG) Urine Urobilinogen Dipstick 0.2 mg/dL (0.2 mg/dL) Urine Leukocyte Esterase Negative (NEG) Urine RBC Rare /HPF (0-2) Urine WBC 0 /HPF (0-4) Urine Squamous Epithelial Cells Few /LPF Urine Bacteria 0 /HPF (0-FEW) White Blood Count 6.7 x10^3/uL (4.0-11.0) Red Blood Count 4.75 x10^6/uL (3.50-5.40) Hemoglobin 12.7 g/dL (12.0-15.5) Hematocrit 40.6 % (36.0-47.0) Mean Corpuscular Volume 85 fL (79-100) Mean Corpuscular Hemoglobin 27 pg (25-35) Mean Corpuscular Hemoglobin Concent 31 g/dL (31-37) Red Cell Distribution Width 22.8 % (11.5-14.5) Platelet Count 160 x10^3/uL (140-400) Neutrophils (%) (Auto) 60 % (31-73) Lymphocytes (%) (Auto) 20 % (24-48) Monocytes (%) (Auto) 9 % (0-9) Eosinophils (%) (Auto) 9 % (0-3) Basophils (%) (Auto) 1 % (0-3) Neutrophils # (Auto) 4.1 x10^3/uL (1.8-7.7) Lymphocytes # (Auto) 1.4 x10^3/uL (1.0-4.8) Monocytes # (Auto) 0.6 x10^3/uL (0.0-1.1) Eosinophils # (Auto) 0.6 x10^3/uL (0.0-0.7) Basophils # (Auto) 0.1 x10^3/uL (0.0-0.2) Platelet Estimate Adequate (ADEQUATE) Hypochromasia Slight Microcytosis Slight Macrocytosis Slight Target Cells Occ Ovalocytes Occ Stomatocytes Occ Sodium Level 144 mmol/L (136-145) Potassium Level 4.5 mmol/L (3.5-5.1) Chloride Level 102 mmol/L (98-107) Carbon Dioxide Level 30 mmol/L (21-32) Anion Gap 12 (6-14) Blood Urea Nitrogen 14 mg/dL (7-20) Creatinine 0.7 mg/dL (0.6-1.0) Estimated GFR (Cockcroft-Gault) 80.9 BUN/Creatinine Ratio 20 (6-20) Glucose Level 100 mg/dL (70-99) Calcium Level 8.4 mg/dL (8.5-10.1) Total Bilirubin 0.2 mg/dL (0.2-1.0) Aspartate Amino Transf (AST/SGOT) 20 U/L (15-37) Alanine Aminotransferase (ALT/SGPT) 19 U/L (14-59) Alkaline Phosphatase 81 U/L (46-116) Troponin I High Sensitivity 10 ng/L (4-50) AO-Czc-Y-Type Natriuretic Peptide 258 pg/mL (0-449) Total Protein 7.8 g/dL (6.4-8.2) Albumin 3.8 g/dL (3.4-5.0) Albumin/Globulin Ratio 1.0 (1.0-1.7) Influenza Type A Antigen Negative (NEGATIVE) Influenza Type B Antigen Negative (NEGATIVE) SARS-CoV-2 RNA (GENARO) Negative (Negative) SARS-CoV-2 Antigen (Rapid) Negative (NEGATIVE) O2 Saturation 92 % (92-99) Arterial Blood pH 7.43 (7.35-7.45) Arterial Blood pCO2 at Patient Temp 37 mmHg (35-46) Arterial Blood pO2 at Patient Temp 68 mmHg (65-108) Arterial Blood HCO3 24 mmol/L (21-28) Arterial Blood Base Excess 0 mmol/L (-3-3) Oxyhemoglobin 91.5 % Methemoglobin 0.3 % (0.0-1.9) Carbon Monoxide, Quantitative 0.7 % (0.0-1.9) FiO2 21 room air Lactic Acid Level 1.3 mmol/L (0.4-2.0) Test 12/28/21 06:48 White Blood Count 7.3 x10^3/uL (4.0-11.0) Red Blood Count 5.02 x10^6/uL (3.50-5.40) Hemoglobin 13.6 g/dL (12.0-15.5) Hematocrit 42.8 % (36.0-47.0) Mean Corpuscular Volume 85 fL (79-100) Mean Corpuscular Hemoglobin 27 pg (25-35) Mean Corpuscular Hemoglobin Concent 32 g/dL (31-37) Red Cell Distribution Width 23.2 % (11.5-14.5) Platelet Count 164 x10^3/uL (140-400) Neutrophils (%) (Auto) 88 % (31-73) Lymphocytes (%) (Auto) 11 % (24-48) Monocytes (%) (Auto) 2 % (0-9) Eosinophils (%) (Auto) 0 % (0-3) Basophils (%) (Auto) 0 % (0-3) Neutrophils # (Auto) 6.4 x10^3/uL (1.8-7.7) Lymphocytes # (Auto) 0.8 x10^3/uL (1.0-4.8) Monocytes # (Auto) 0.1 x10^3/uL (0.0-1.1) Eosinophils # (Auto) 0.0 x10^3/uL (0.0-0.7) Basophils # (Auto) 0.0 x10^3/uL (0.0-0.2) Sodium Level 141 mmol/L (136-145) Potassium Level 3.5 mmol/L (3.5-5.1) Chloride Level 101 mmol/L (98-107) Carbon Dioxide Level 29 mmol/L (21-32) Anion Gap 11 (6-14) Blood Urea Nitrogen 17 mg/dL (7-20) Creatinine 0.7 mg/dL (0.6-1.0) Estimated GFR (Cockcroft-Gault) 80.9 BUN/Creatinine Ratio 24 (6-20) Glucose Level 176 mg/dL (70-99) Calcium Level 8.6 mg/dL (8.5-10.1) Total Bilirubin 0.4 mg/dL (0.2-1.0) Aspartate Amino Transf (AST/SGOT) 14 U/L (15-37) Alanine Aminotransferase (ALT/SGPT) 15 U/L (14-59) Alkaline Phosphatase 81 U/L (46-116) Total Protein 8.3 g/dL (6.4-8.2) Albumin 3.7 g/dL (3.4-5.0) Albumin/Globulin Ratio 0.8 (1.0-1.7) Laboratory Tests Test 12/27/21 12:39 12/27/21 15:07 12/28/21 06:48 O2 Saturation 92 % (92-99) Arterial Blood pH 7.43 (7.35-7.45) Arterial Blood pCO2 at Patient Temp 37 mmHg (35-46) Arterial Blood pO2 at Patient Temp 68 mmHg (65-108) Arterial Blood HCO3 24 mmol/L (21-28) Arterial Blood Base Excess 0 mmol/L (-3-3) Oxyhemoglobin 91.5 % Methemoglobin 0.3 % (0.0-1.9) Carbon Monoxide, Quantitative 0.7 % (0.0-1.9) FiO2 21 room air Lactic Acid Level 1.3 mmol/L (0.4-2.0) White Blood Count 7.3 x10^3/uL (4.0-11.0) Red Blood Count 5.02 x10^6/uL (3.50-5.40) Hemoglobin 13.6 g/dL (12.0-15.5) Hematocrit 42.8 % (36.0-47.0) Mean Corpuscular Volume 85 fL (79-100) Mean Corpuscular Hemoglobin 27 pg (25-35) Mean Corpuscular Hemoglobin Concent 32 g/dL (31-37) Red Cell Distribution Width 23.2 % (11.5-14.5) Platelet Count 164 x10^3/uL (140-400) Neutrophils (%) (Auto) 88 % (31-73) Lymphocytes (%) (Auto) 11 % (24-48) Monocytes (%) (Auto) 2 % (0-9) Eosinophils (%) (Auto) 0 % (0-3) Basophils (%) (Auto) 0 % (0-3) Neutrophils # (Auto) 6.4 x10^3/uL (1.8-7.7) Lymphocytes # (Auto) 0.8 x10^3/uL (1.0-4.8) Monocytes # (Auto) 0.1 x10^3/uL (0.0-1.1) Eosinophils # (Auto) 0.0 x10^3/uL (0.0-0.7) Basophils # (Auto) 0.0 x10^3/uL (0.0-0.2) Sodium Level 141 mmol/L (136-145) Potassium Level 3.5 mmol/L (3.5-5.1) Chloride Level 101 mmol/L (98-107) Carbon Dioxide Level 29 mmol/L (21-32) Anion Gap 11 (6-14) Blood Urea Nitrogen 17 mg/dL (7-20) Creatinine 0.7 mg/dL (0.6-1.0) Estimated GFR (Cockcroft-Gault) 80.9 BUN/Creatinine Ratio 24 (6-20) Glucose Level 176 mg/dL (70-99) Calcium Level 8.6 mg/dL (8.5-10.1) Total Bilirubin 0.4 mg/dL (0.2-1.0) Aspartate Amino Transf (AST/SGOT) 14 U/L (15-37) Alanine Aminotransferase (ALT/SGPT) 15 U/L (14-59) Alkaline Phosphatase 81 U/L (46-116) Total Protein 8.3 g/dL (6.4-8.2) Albumin 3.7 g/dL (3.4-5.0) Albumin/Globulin Ratio 0.8 (1.0-1.7) Medications Active Scripts Medications Dose Route/Sig Max Daily Dose Days Date Category Dose Instructions Advair 100-50 Diskus (Fluticasone/Salmeterol) 1 Each Disk.w.dev 1 Puff IH BID 09/26/21 Reported Albuterol Sulfate Neb Soln (Albuterol Sulfate) 0.63 Mg/3 Ml Vial.neb 1 Vial NEB TID 09/26/21 Reported Miralax (Polyethylene Glycol 3350) 17 Gm Powd.pack 1 Packet PO DAILY 2 06/28/21 Reported dissolve in water Prilosec Otc (Omeprazole Magnesium) 20 Mg Tablet.dr 10 Mg PO DAILY 01/25/20 Reported Vitamin D3 (Cholecalciferol (Vitamin D3)) 250 Mcg Tablet 500 Mcg PO DAILY 01/25/20 Reported Percocet 10-325 Mg Tablet (Oxycodone/Acetaminophen) 1 Each Tablet 1.5 Tab PO PRN Q8HRS PRN MDD 4 Tablet(s) 5 01/25/20 Reported Percocet 10-325 Mg Tablet (Oxycodone/Acetaminophen) 1 Each Tablet 1 Tab PO PRN Q6HRS PRN 01/25/20 Reported Losartan-Hctz 50-12.5 Mg Tab (Losartan/Hydrochlorothiazide) 1 Each Tablet 1 Tab PO DAILY 01/25/20 Reported Gabapentin 600 Mg Tablet 600 Mg PO TID 01/25/20 Reported Xanax (Alprazolam) 0.5 Mg Tablet 1 Tab PO BID 01/25/20 Reported Tizanidine Hcl 4 Mg Tablet 1 Tab PO BID 01/25/20 Reported Mirapex (Pramipexole Di-Hcl) 0.25 Mg Tablet 0.5 Mg PO DAILY 1900 01/25/20 Reported Impression . Consult dictated Acute exacerbation of COPD Abnormal chest x-ray Obtain CT chest JOSE BARRETT MD Dec 28, 2021 12:28
[2021-12-28] MEDS: AZITHROMYCIN 500 MG in IV NORMAL SALINE 250ML 250 ML IV SCH (14:22)
[2021-12-28 15:00] VITALS: BP 156/85
--- NOTE | 2021-12-28 15:58 | RAD ---
Single view chest dated 12/28/2021. COMPARISON: 07/07/2021. CLINICAL INDICATION: Follow-up infiltrate. TECHNIQUE: Contiguous axial imaging the chest was performed without the administration of IV or oral contrast. One or more of the following individualized dose reduction techniques were utilized for this examinat ion: 1. Automated exposure control 2. Adjustment of the mA and/or kV according to patient size 3. Use of iterative reconstruction technique. FINDINGS: Heart size is mildly enlarged. No pericardial effusion. Coronary artery calcifications. No mediastina l, hilar or axillary lymphadenopathy. Thyroid gland is unremarkable. There is a large hiatal hernia. Central airways are patent. There is mild to moderate emphysema. No consolidation or pleural effusion . Mild biapical scarring. No suspicious pulmonary nodule or mass. Small subpleural density in the lat eral aspect of the right upper lobe along the minor fissure is unchanged. Limited images of the upper abdomen are unremarkable. Infrarenal abdominal aortic aneurysm, incomplet jose enrique included on study measuring up to 5.6 cm transverse. Bone window show no acute finding. Multilevel spondylosis. IMPRESSION: 1. No suspicious pulmonary nodule or mass. 2. Coronary artery calcifications. 3. Large hiatal hernia. 4. Infrarenal abdominal aortic aneurysm, incompletely included on the study. CT abdomen pelvis with c ontrast could better evaluate. 5. Emphysema. Electronically signed by: Demetrius Barclay MD (12/28/2021 3:55 PM) [facility]
--- NOTE | 2021-12-28 16:03 | CONS ---
DATE OF CONSULTATION: 12/28/2021 ATTENDING PHYSICIAN: Manuel Heaton MD. REASON FOR CONSULTATION: The patient is seen in pulmonary consultation at the request of Dr. Heaton for wheezing and increasing shortness of breath. HISTORY OF PRESENT ILLNESS: The patient is a 76-year-old, quit tobacco approximately 2 weeks ago, presented with progressive dyspnea, tachypnea, wheeze, unable to tolerate activities of daily living. She utilized her nebulizer machine at home more frequently with no significant improvement. She presented to the Emergency Room. She underwent an arterial blood gas revealing PaO2 of 68. White count was normal. Serology for influenza and SARS-CoV-2 was negative. She had a chest x-ray, which I personally reviewed. There are some bibasilar interstitial infiltrates. The patient is coughing up some mucus, no blood. PAST MEDICAL HISTORY: 1. COPD. She normally does not experience frequent acute exacerbations. 2. Hypertension. 3. Chronic back pain and she has had multiple surgeries including spinal stimulator. She has had previous shoulder surgery. PAST SURGICAL HISTORY: As above. REVIEW OF SYSTEMS: CONSTITUTIONAL: No fever or chills. EYES: No change in visual acuity. HENT: No nasal congestion or sore throat. PULMONARY: As indicated above. CARDIOVASCULAR: No chest pain, no pressure. GASTROINTESTINAL: No nausea, vomiting or diarrhea. GENITOURINARY: No dysuria or frequency. MUSCULOSKELETAL: As indicated above. SKIN: No new skin rashes. NEUROLOGIC: No headaches, diplopia or blurred vision. ENDOCRINE: No polyuria or polydipsia. PSYCHIATRIC: No recent major depressive episode. CURRENT MEDICATIONS: List was reviewed. She is currently receiving empiric antibiotics. She is also on Solu-Medrol nebulized treatment. PHYSICAL EXAMINATION: GENERAL: The patient appeared to be a stated age. VITAL SIGNS: Stable. O2 saturation was greater than 92%, afebrile, currently on 2 liters. HEENT: Eyes: The sclerae were nonicteric. NECK: Jugular venous distention was not elevated. No lymphadenopathy. CHEST: Full expansion. LUNGS: Very poor airflow with expiratory wheeze. CARDIOVASCULAR: Regular rate and rhythm with S1, S2, no S3. ABDOMEN: Soft. EXTREMITIES: No clubbing, cyanosis or edema. LABORATORY DATA: Chest x-ray as indicated above. IMPRESSION: 1. Progressive dyspnea secondary to acute exacerbation of chronic obstructive pulmonary disease. 2. Acute exacerbation of chronic obstructive pulmonary disease. 3. Tobacco dependent, quit approximately 2 weeks ago. 4. Other comorbidities including hypertension, chronic pain, status post spinal stimulator. 5. SARS-CoV-2 testing negative, both rapid and nucleic amplification test. 6. Abnormal chest x-ray. PLAN: We will obtain CT chest to better delineate the infiltrates on x-ray. I do appreciate the privilege in sharing in the patient's care. YAMILE DR: Carine TID: [id number]
--- NOTE | 2021-12-28 18:43 | HP ---
DATE OF SERVICE: 12/28/2021 ADMIT DATE: 12/27/2021 ADMISSION HISTORY AND PHYSICAL CHIEF COMPLAINT AND HISTORY OF PRESENT ILLNESS: This 76-year-old female presents with 5 days of wheezing, shortness of breath, dizziness, cough. She has been using her nebulizers and inhalers at home, but not improving and actually getting worse. She has had her COVID vaccines including boosters. She had a virtual appointment on the day of admission stating she needed to come to the hospital to be evaluated. She was found to be diffuse bronchospasm with a chest x-ray showing bilateral lower lung interstitial infiltrates and admitted for an exacerbation of COPD. COVID and influenza testing were negative on admission. PAST MEDICAL HISTORY: Remarkable for hypertension, COPD, chronic back pain, hiatal hernia, abdominal aortic aneurysm. PAST SURGICAL HISTORY: Remarkable for hysterectomy, tonsillectomy, spinal stimulator, hip surgery, shoulder surgery, pain pump. MEDICATIONS: Brought with the patient, listed on computer have been addressed. ALLERGIES: SHE IS ALLERGIC TO IODINE. SOCIAL HISTORY: She is a current every day smoker, nondrinker, does not use drugs. FAMILY HISTORY: Noncontributory. REVIEW OF SYSTEMS: As mentioned above. PHYSICAL EXAMINATION: GENERAL: She is a well-developed, well-nourished white female in no acute distress, lying in bed at the time of my examination. VITAL SIGNS: Stable. She is afebrile. Blood pressures have been running high since admission. HEAD, EYES, EARS, NOSE AND THROAT: Unremarkable. NECK: Supple, without adenopathy or thyromegaly. CHEST: Reveals diffuse expiratory wheezing bilaterally with decreased air movement. HEART: Regular rate and rhythm without S3, S4 or murmur. ABDOMEN: Soft, nontender, without hepatosplenomegaly or masses. EXTREMITIES: Without cyanosis, clubbing or edema. NEUROLOGIC: She is intact. She does ____ probably steroid related as she has not received a breathing treatment since admission. ASSESSMENT: 1. Exacerbation of chronic obstructive pulmonary disease. 2. Probable bilateral pneumonia. PLAN: IV antibiotics, steroids, Pulmonary consultation, pulmonary toilet. The patient will be monitored, managed and treated appropriately. GYPSY DR: Dora TID: [id number]
[2021-12-28 19:00] VITALS: BP 128/63
[2021-12-28] MEDS: LACTOBACILLUS RHAMNOSUS GG 1 CAPSULE. PO SCH (19:43)
[2021-12-28 23:00] VITALS: BP 112/67
[2021-12-29] MEDS: ALBUTEROL SULFATE 2.5 MG/3 ML NEBU. NEB PRN (04:03)
[2021-12-29] MEDS: methylPREDNISolone SOD SUCC PF 125 MG/2 ML VIAL. IV SCH ×3 (05:35→21:53)
[2021-12-29 07:00] VITALS: BP 167/82
[2021-12-29] MEDS: LACTOBACILLUS RHAMNOSUS GG 1 CAPSULE. PO SCH ×2 (08:26→21:53)
[2021-12-29] MEDS: CHOLECALCIFEROL (VITAMIN D3) 1,000 UNIT TABLET PO SCH (08:27)
[2021-12-29] MEDS: hydroCHLOROthiazide 12.5 MG CAPSULE PO SCH (08:29)
[2021-12-29] MEDS: LOSARTAN POTASSIUM 50 MG TABLET. PO SCH (08:29)
[2021-12-29] MEDS: ALPRAZolam 0.5 MG TABLET PO SCH ×2 (08:29→21:53)
[2021-12-29] MEDS: PANTOPRAZOLE 40 MG TABLET.DR. PO SCH (08:29)
[2021-12-29] MEDS: tiZANidine 4 MG TABLET. PO SCH ×2 (08:29→21:53)
[2021-12-29] MEDS: GABAPENTIN 300 MG CAPSULE. PO SCH ×3 (08:30→21:53)
[2021-12-29] MEDS: IPRATRPIUM/ALBUTEROL 0.5/2.5MG 3 ML NEBU. NEB SCH ×4 (08:42→20:46)
[2021-12-29] MEDS: cefTRIAXone IV Push 1 GM VIAL. IVP SCH (09:48)
[2021-12-29] MEDS: oxyCODONE/APAP 10/325 1 TAB TABLET PO PRN (09:58)
--- NOTE | 2021-12-29 10:29 | PDOC ---
PULMONARY PROGRESS NOTES DATE: 12/29/21 TIME: 10:24 Subjective patient seen resting in bed. reports she feels tired. still has shortness of breath with activity, complains of wheezing at times. Vitals Vital Signs Date Time Temp Pulse Resp B/P (MAP) Pulse Ox O2 Delivery O2 Flow Rate FiO2 12/29/21 09:58 20 93 Nasal Cannula 2.0 12/29/21 08:29 103 167/82 12/29/21 07:00 97.7 97.7 General: Alert, No acute distress Lungs: Clear Cardiovascular: S1, S2 Abdomen: Soft, Non-tender Extremities: No Edema Labs Laboratory Tests Test 12/27/21 11:51 12/27/21 12:14 12/27/21 12:39 12/27/21 15:07 Urine Collection Type Unknown Urine Color Yellow Urine Clarity Clear Urine pH 7.5 (<5.0-8.0) Urine Specific [place] 1.010 (1.000-1.030) Urine Protein Negative mg/dL (NEG-TRACE) Urine Glucose (UA) Negative mg/dL (NEG) Urine Ketones (Stick) Negative mg/dL (NEG) Urine Blood Negative (NEG) Urine Nitrite Negative (NEG) Urine Bilirubin Negative (NEG) Urine Urobilinogen Dipstick 0.2 mg/dL (0.2 mg/dL) Urine Leukocyte Esterase Negative (NEG) Urine RBC Rare /HPF (0-2) Urine WBC 0 /HPF (0-4) Urine Squamous Epithelial Cells Few /LPF Urine Bacteria 0 /HPF (0-FEW) White Blood Count 6.7 x10^3/uL (4.0-11.0) Red Blood Count 4.75 x10^6/uL (3.50-5.40) Hemoglobin 12.7 g/dL (12.0-15.5) Hematocrit 40.6 % (36.0-47.0) Mean Corpuscular Volume 85 fL (79-100) Mean Corpuscular Hemoglobin 27 pg (25-35) Mean Corpuscular Hemoglobin Concent 31 g/dL (31-37) Red Cell Distribution Width 22.8 % (11.5-14.5) Platelet Count 160 x10^3/uL (140-400) Neutrophils (%) (Auto) 60 % (31-73) Lymphocytes (%) (Auto) 20 % (24-48) Monocytes (%) (Auto) 9 % (0-9) Eosinophils (%) (Auto) 9 % (0-3) Basophils (%) (Auto) 1 % (0-3) Neutrophils # (Auto) 4.1 x10^3/uL (1.8-7.7) Lymphocytes # (Auto) 1.4 x10^3/uL (1.0-4.8) Monocytes # (Auto) 0.6 x10^3/uL (0.0-1.1) Eosinophils # (Auto) 0.6 x10^3/uL (0.0-0.7) Basophils # (Auto) 0.1 x10^3/uL (0.0-0.2) Platelet Estimate Adequate (ADEQUATE) Hypochromasia Slight Microcytosis Slight Macrocytosis Slight Target Cells Occ Ovalocytes Occ Stomatocytes Occ Sodium Level 144 mmol/L (136-145) Potassium Level 4.5 mmol/L (3.5-5.1) Chloride Level 102 mmol/L (98-107) Carbon Dioxide Level 30 mmol/L (21-32) Anion Gap 12 (6-14) Blood Urea Nitrogen 14 mg/dL (7-20) Creatinine 0.7 mg/dL (0.6-1.0) Estimated GFR (Cockcroft-Gault) 80.9 BUN/Creatinine Ratio 20 (6-20) Glucose Level 100 mg/dL (70-99) Calcium Level 8.4 mg/dL (8.5-10.1) Total Bilirubin 0.2 mg/dL (0.2-1.0) Aspartate Amino Transf (AST/SGOT) 20 U/L (15-37) Alanine Aminotransferase (ALT/SGPT) 19 U/L (14-59) Alkaline Phosphatase 81 U/L (46-116) Troponin I High Sensitivity 10 ng/L (4-50) [id number]-Type Natriuretic Peptide 258 pg/mL (0-449) Total Protein 7.8 g/dL (6.4-8.2) Albumin 3.8 g/dL (3.4-5.0) Albumin/Globulin Ratio 1.0 (1.0-1.7) Influenza Type A Antigen Negative (NEGATIVE) Influenza Type B Antigen Negative (NEGATIVE) SARS-CoV-2 RNA (GENARO) Negative (Negative) SARS-CoV-2 Antigen (Rapid) Negative (NEGATIVE) O2 Saturation 92 % (92-99) Arterial Blood pH 7.43 (7.35-7.45) Arterial Blood pCO2 at Patient Temp 37 mmHg (35-46) Arterial Blood pO2 at Patient Temp 68 mmHg (65-108) Arterial Blood HCO3 24 mmol/L (21-28) Arterial Blood Base Excess 0 mmol/L (-3-3) Oxyhemoglobin 91.5 % Methemoglobin 0.3 % (0.0-1.9) Carbon Monoxide, Quantitative 0.7 % (0.0-1.9) FiO2 21 room air Lactic Acid Level 1.3 mmol/L (0.4-2.0) Test 12/28/21 06:48 White Blood Count 7.3 x10^3/uL (4.0-11.0) Red Blood Count 5.02 x10^6/uL (3.50-5.40) Hemoglobin 13.6 g/dL (12.0-15.5) Hematocrit 42.8 % (36.0-47.0) Mean Corpuscular Volume 85 fL (79-100) Mean Corpuscular Hemoglobin 27 pg (25-35) Mean Corpuscular Hemoglobin Concent 32 g/dL (31-37) Red Cell Distribution Width 23.2 % (11.5-14.5) Platelet Count 164 x10^3/uL (140-400) Neutrophils (%) (Auto) 88 % (31-73) Lymphocytes (%) (Auto) 11 % (24-48) Monocytes (%) (Auto) 2 % (0-9) Eosinophils (%) (Auto) 0 % (0-3) Basophils (%) (Auto) 0 % (0-3) Neutrophils # (Auto) 6.4 x10^3/uL (1.8-7.7) Lymphocytes # (Auto) 0.8 x10^3/uL (1.0-4.8) Monocytes # (Auto) 0.1 x10^3/uL (0.0-1.1) Eosinophils # (Auto) 0.0 x10^3/uL (0.0-0.7) Basophils # (Auto) 0.0 x10^3/uL (0.0-0.2) Sodium Level 141 mmol/L (136-145) Potassium Level 3.5 mmol/L (3.5-5.1) Chloride Level 101 mmol/L (98-107) Carbon Dioxide Level 29 mmol/L (21-32) Anion Gap 11 (6-14) Blood Urea Nitrogen 17 mg/dL (7-20) Creatinine 0.7 mg/dL (0.6-1.0) Estimated GFR (Cockcroft-Gault) 80.9 BUN/Creatinine Ratio 24 (6-20) Glucose Level 176 mg/dL (70-99) Calcium Level 8.6 mg/dL (8.5-10.1) Total Bilirubin 0.4 mg/dL (0.2-1.0) Aspartate Amino Transf (AST/SGOT) 14 U/L (15-37) Alanine Aminotransferase (ALT/SGPT) 15 U/L (14-59) Alkaline Phosphatase 81 U/L (46-116) Total Protein 8.3 g/dL (6.4-8.2) Albumin 3.7 g/dL (3.4-5.0) Albumin/Globulin Ratio 0.8 (1.0-1.7) Medications Active Scripts Medications Dose Route/Sig Max Daily Dose Days Date Category Dose Instructions Advair 100-50 Diskus (Fluticasone/Salmeterol) 1 Each Disk.w.dev 1 Puff IH BID 09/26/21 Reported Albuterol Sulfate Neb Soln (Albuterol Sulfate) 0.63 Mg/3 Ml Vial.neb 1 Vial NEB TID 09/26/21 Reported Miralax (Polyethylene Glycol 3350) 17 Gm Powd.pack 1 Packet PO DAILY 2 06/28/21 Reported dissolve in water Prilosec Otc (Omeprazole Magnesium) 20 Mg Tablet.dr 10 Mg PO DAILY 01/25/20 Reported Vitamin D3 (Cholecalciferol (Vitamin D3)) 250 Mcg Tablet 500 Mcg PO DAILY 01/25/20 Reported Percocet 10-325 Mg Tablet (Oxycodone/Acetaminophen) 1 Each Tablet 1.5 Tab PO PRN Q8HRS PRN MDD 4 Tablet(s) 5 01/25/20 Reported Percocet 10-325 Mg Tablet (Oxycodone/Acetaminophen) 1 Each Tablet 1 Tab PO PRN Q6HRS PRN 01/25/20 Reported Losartan-Hctz 50-12.5 Mg Tab (Losartan/Hydrochlorothiazide) 1 Each Tablet 1 Tab PO DAILY 01/25/20 Reported Gabapentin 600 Mg Tablet 600 Mg PO TID 01/25/20 Reported Xanax (Alprazolam) 0.5 Mg Tablet 1 Tab PO BID 01/25/20 Reported Tizanidine Hcl 4 Mg Tablet 1 Tab PO BID 01/25/20 Reported Mirapex (Pramipexole Di-Hcl) 0.25 Mg Tablet 0.5 Mg PO DAILY 1900 01/25/20 Reported Impression . IMPRESSION: 1. Progressive dyspnea secondary to acute exacerbation of chronic obstructive pulmonary disease. 2. Acute exacerbation of chronic obstructive pulmonary disease. 3. Tobacco dependent, quit approximately 2 weeks ago. 4. Other comorbidities including hypertension, chronic pain, status post spinal stimulator. 5. SARS-CoV-2 testing negative, both rapid and nucleic amplification test. 6. Abnormal chest x-ray. CT Chest IMPRESSION: 1. No suspicious pulmonary nodule or mass. 2. Coronary artery calcifications. 3. Large hiatal hernia. 4. Infrarenal abdominal aortic aneurysm, incompletely included on the study. CT abdomen pelvis with contrast could better evaluate. 5. Emphysema. Plan . 12/29 continue tx of COPD exac nebs, steroid, anbx supplemental O2, currently 2L, baseline is as needed at home. activity as tolerated PLAN 12/[address] chest to better delineate the infiltrates on x-ray. Consult dictated Acute exacerbation of COPD Abnormal chest x-ray Obtain CT chest JOSE BARRETT MD Dec 29, 2021 10:29
[2021-12-29 11:00] VITALS: BP 116/55
[2021-12-29] MEDS: AZITHROMYCIN 500 MG in IV NORMAL SALINE 250ML 250 ML IV SCH (14:12)
[2021-12-29 15:00] VITALS: BP 150/81
[2021-12-29 19:00] VITALS: BP 151/86
--- NOTE | 2021-12-29 19:42 | PN ---
DATE: 12/29/2021 DAILY PROGRESS NOTE LOCATION: She is in room 558. SUBJECTIVE: This 76-year-old female admitted with exacerbation of COPD with shortness of breath and hypoxemia. She states she is really no better this morning, is quite short of breath with any kind of activity and occasionally at rest, coughing up minimal phlegm. OBJECTIVE: VITAL SIGNS: Stable. She is afebrile. GENERAL: She is awake and alert. CHEST: With diffuse expiratory wheezing at the time of my examination, decreased air exchange. HEART: Regular rate and rhythm. ABDOMEN: Benign. EXTREMITIES: Without significant edema. ASSESSMENT: 1. Exacerbation of chronic obstructive pulmonary disease, slow to improve. 2. Chest x-ray showing possible bilateral lower infiltrates. PLAN: Continue present care, which includes pulmonary toilet, IV antibiotics, IV steroids. Pulmonary help appreciated. RAFI DR: Dora TID: [id number]
[2021-12-29] MEDS: BUDESONIDE 0.5 MG/2 ML NEBU. NEB SCH (20:46)
[2021-12-29 23:24] VITALS: BP 150/81
[2021-12-30 03:13] VITALS: BP 151/88
[2021-12-30] MEDS: ALBUTEROL SULFATE 2.5 MG/3 ML NEBU. NEB PRN (05:39)
[2021-12-30] MEDS: methylPREDNISolone SOD SUCC PF 125 MG/2 ML VIAL. IV SCH ×3 (06:39→20:27)
[2021-12-30 07:00] VITALS: BP 152/87
[2021-12-30] MEDS: BUDESONIDE 0.5 MG/2 ML NEBU. NEB SCH ×2 (07:22→20:00)
[2021-12-30] MEDS: IPRATRPIUM/ALBUTEROL 0.5/2.5MG 3 ML NEBU. NEB SCH ×4 (07:22→20:00)
[2021-12-30] MEDS: ALPRAZolam 0.5 MG TABLET PO SCH ×2 (09:00→20:28)
[2021-12-30] MEDS: CHOLECALCIFEROL (VITAMIN D3) 1,000 UNIT TABLET PO SCH (09:21)
[2021-12-30] MEDS: LACTOBACILLUS RHAMNOSUS GG 1 CAPSULE. PO SCH ×2 (09:21→20:28)
[2021-12-30] MEDS: GABAPENTIN 300 MG CAPSULE. PO SCH ×3 (09:22→20:28)
[2021-12-30] MEDS: tiZANidine 4 MG TABLET. PO SCH ×2 (09:22→20:28)
[2021-12-30] MEDS: LOSARTAN POTASSIUM 50 MG TABLET. PO SCH (09:23)
[2021-12-30] MEDS: hydroCHLOROthiazide 12.5 MG CAPSULE PO SCH (09:23)
[2021-12-30] MEDS: PANTOPRAZOLE 40 MG TABLET.DR. PO SCH (09:23)
[2021-12-30] MEDS: cefTRIAXone IV Push 1 GM VIAL. IVP SCH (09:27)
[2021-12-30] MEDS: MAGNESIUM HYDROXIDE 2,400 MG/30 ML ORAL.SUSP. PO PRN ×2 (09:33→20:27)
--- NOTE | 2021-12-30 10:35 | PDOC ---
PULMONARY PROGRESS NOTES DATE: 12/30/21 TIME: 10:31 Subjective Patient sitting up to side of bed on examination, currently on RA while eating breakfast, 2L NC during rest, wheezing noted, SOA with exertion. Would like a regular diet. Vitals Vital Signs Date Time Temp Pulse Resp B/P (MAP) Pulse Ox O2 Delivery O2 Flow Rate FiO2 12/30/21 09:23 95 152/87 12/30/21 08:00 Nasal Cannula 2.0 12/30/21 07:22 99 12/30/21 07:00 97.4 20 97.4 ROS: No Nausea, No Chest Pain General: Alert, No acute distress Lungs: Clear, Wheezing Cardiovascular: S1, S2 Abdomen: Soft, Non-tender Extremities: No Edema Skin: Warm, No Rashes Medications Active Scripts Medications Dose Route/Sig Max Daily Dose Days Date Category Dose Instructions Advair 100-50 Diskus (Fluticasone/Salmeterol) 1 Each Disk.w.dev 1 Puff IH BID 09/26/21 Reported Albuterol Sulfate Neb Soln (Albuterol Sulfate) 0.63 Mg/3 Ml Vial.neb 1 Vial NEB TID 09/26/21 Reported Miralax (Polyethylene Glycol 3350) 17 Gm Powd.pack 1 Packet PO DAILY 2 06/28/21 Reported dissolve in water Prilosec Otc (Omeprazole Magnesium) 20 Mg Tablet.dr 10 Mg PO DAILY 01/25/20 Reported Vitamin D3 (Cholecalciferol (Vitamin D3)) 250 Mcg Tablet 500 Mcg PO DAILY 01/25/20 Reported Percocet 10-325 Mg Tablet (Oxycodone/Acetaminophen) 1 Each Tablet 1.5 Tab PO PRN Q8HRS PRN MDD 4 Tablet(s) 5 01/25/20 Reported Percocet 10-325 Mg Tablet (Oxycodone/Acetaminophen) 1 Each Tablet 1 Tab PO PRN Q6HRS PRN 01/25/20 Reported Losartan-Hctz 50-12.5 Mg Tab (Losartan/Hydrochlorothiazide) 1 Each Tablet 1 Tab PO DAILY 01/25/20 Reported Gabapentin 600 Mg Tablet 600 Mg PO TID 01/25/20 Reported Xanax (Alprazolam) 0.5 Mg Tablet 1 Tab PO BID 01/25/20 Reported Tizanidine Hcl 4 Mg Tablet 1 Tab PO BID 01/25/20 Reported Mirapex (Pramipexole Di-Hcl) 0.25 Mg Tablet 0.5 Mg PO DAILY 1900 01/25/20 Reported Impression . IMPRESSION: 1. Progressive dyspnea secondary to acute exacerbation of chronic obstructive pulmonary disease. 2. Acute exacerbation of chronic obstructive pulmonary disease. 3. Tobacco dependent, quit approximately 2 weeks ago. 4. Other comorbidities including hypertension, chronic pain, status post spinal stimulator. 5. SARS-CoV-2 testing negative, both rapid and nucleic amplification test. 6. Abnormal chest x-ray. CT Chest IMPRESSION: 1. No suspicious pulmonary nodule or mass. 2. Coronary artery calcifications. 3. Large hiatal hernia. 4. Infrarenal abdominal aortic aneurysm, incompletely included on the study. CT abdomen pelvis with contrast could better evaluate. 5. Emphysema. Plan . 12/30 Continue steroid, abx, breathing treatments Continue O2 supplementation, 2L baseline at home Activity as tolerated, consider 6min walk 12/29 continue tx of COPD exac nebs, steroid, anbx supplemental O2, currently 2L, baseline is as needed at home. activity as tolerated JOSE BARRETT MD Dec 30, 2021 10:35
[2021-12-30 11:00] VITALS: BP 135/61
--- NOTE | 2021-12-30 11:29 | NUR ---
SW following. Discussed with RN, pt from home with family, 2L PRN (uses at home per pt), cardiac diet, COVID-19 negative, 2 IV abx. Pulmonology following. RN advised no SW needs at this time. SW will continue to follow.
--- NOTE | 2021-12-30 12:01 | PN ---
DATE: 12/30/2021 DAILY PROGRESS NOTE LOCATION: She is in room 558. SUBJECTIVE: This 76-year-old female remains hospitalized with exacerbation of COPD with shortness of breath and hypoxia. As I saw her this morning, she was up and going to the bathroom, still is diffusely wheezy, very short of breath and trying to get to bed for examination. Requests a regular diet, which I have given a verbal order to nursing for the same. OBJECTIVE: VITAL SIGNS: Stable. She is afebrile, awake and alert. CHEST: Diffuse expiratory wheezing. Decreased air exchange. HEART: Regular rate and rhythm. ABDOMEN: Benign. EXTREMITIES: No significant edema. ASSESSMENT: 1. Exacerbation of chronic obstructive pulmonary disease, slowly improve. 2. Chest x-ray showing possible bilateral lower lobe infiltrates. PLAN: Continue present care, which includes pulmonary toilet, IV antibiotics, IV steroids. Pulmonary help appreciated. Await clearing. SHARONDA DR: Dora TID: [id number]
[2021-12-30 15:00] VITALS: BP 142/76
[2021-12-30] MEDS: AZITHROMYCIN 500 MG in IV NORMAL SALINE 250ML 250 ML IV SCH (15:37)
[2021-12-30 19:00] VITALS: BP 148/79
[2021-12-30 23:51] VITALS: BP 136/73
[2021-12-31 03:24] VITALS: BP 146/80
[2021-12-31] MEDS: ALBUTEROL SULFATE 2.5 MG/3 ML NEBU. NEB PRN (04:15)
[2021-12-31] MEDS: methylPREDNISolone SOD SUCC PF 125 MG/2 ML VIAL. IV SCH (06:37)
[2021-12-31 07:00] VITALS: BP 170/83
[2021-12-31] MEDS: BUDESONIDE 0.5 MG/2 ML NEBU. NEB SCH ×2 (07:46→20:45)
[2021-12-31] MEDS: IPRATRPIUM/ALBUTEROL 0.5/2.5MG 3 ML NEBU. NEB SCH ×4 (07:46→20:45)
[2021-12-31] MEDS: CEFDINIR 300 MG CAPSULE PO SCH ×2 (08:29→21:08)
[2021-12-31] MEDS: predniSONE 10 MG TABLET PO SCH (08:29)
[2021-12-31] MEDS: GABAPENTIN 300 MG CAPSULE. PO SCH ×3 (08:34→21:08)
[2021-12-31] MEDS: ALPRAZolam 0.5 MG TABLET PO SCH ×2 (08:35→21:08)
[2021-12-31] MEDS: AZITHROMYCIN 250 MG TABLET. PO SCH (08:35)
[2021-12-31] MEDS: hydroCHLOROthiazide 12.5 MG CAPSULE PO SCH (08:35)
[2021-12-31] MEDS: tiZANidine 4 MG TABLET. PO SCH ×2 (08:35→21:00)
[2021-12-31] MEDS: CHOLECALCIFEROL (VITAMIN D3) 1,000 UNIT TABLET PO SCH (08:35)
[2021-12-31] MEDS: LACTOBACILLUS RHAMNOSUS GG 1 CAPSULE. PO SCH ×2 (08:36→21:08)
[2021-12-31] MEDS: PANTOPRAZOLE 40 MG TABLET.DR. PO SCH (08:36)
[2021-12-31] MEDS: LOSARTAN POTASSIUM 50 MG TABLET. PO SCH (08:37)
[2021-12-31] MEDS ORDERED: AZITHROMYCIN 250 MG TABLET. PO SCH (09:00)
[2021-12-31 11:00] VITALS: BP 106/73
--- NOTE | 2021-12-31 11:55 | PDOC ---
PULMONARY PROGRESS NOTES DATE: 12/31/21 TIME: 11:53 Subjective patient seen resting in bed. sits up for discussion. currently on RA. denies shortness of breath at rest. complains of wheezing and SOB with activity. Vitals Vital Signs Date Time Temp Pulse Resp B/P (MAP) Pulse Ox O2 Delivery O2 Flow Rate FiO2 12/31/21 11:26 91 Room Air 12/31/21 08:37 87 170/83 12/31/21 08:00 2.0 12/31/21 07:00 98.3 20 98.3 ROS: No Nausea, No Chest Pain General: Alert, No acute distress Lungs: Clear, Wheezing Cardiovascular: S1, S2 Abdomen: Soft, Non-tender Extremities: No Edema Skin: Warm, No Rashes Medications Active Scripts Medications Dose Route/Sig Max Daily Dose Days Date Category Dose Instructions Advair 100-50 Diskus (Fluticasone/Salmeterol) 1 Each Disk.w.dev 1 Puff IH BID 09/26/21 Reported Albuterol Sulfate Neb Soln (Albuterol Sulfate) 0.63 Mg/3 Ml Vial.neb 1 Vial NEB TID 09/26/21 Reported Miralax (Polyethylene Glycol 3350) 17 Gm Powd.pack 1 Packet PO DAILY 2 06/28/21 Reported dissolve in water Prilosec Otc (Omeprazole Magnesium) 20 Mg Tablet.dr 10 Mg PO DAILY 01/25/20 Reported Vitamin D3 (Cholecalciferol (Vitamin D3)) 250 Mcg Tablet 500 Mcg PO DAILY 01/25/20 Reported Percocet 10-325 Mg Tablet (Oxycodone/Acetaminophen) 1 Each Tablet 1.5 Tab PO PRN Q8HRS PRN MDD 4 Tablet(s) 5 01/25/20 Reported Percocet 10-325 Mg Tablet (Oxycodone/Acetaminophen) 1 Each Tablet 1 Tab PO PRN Q6HRS PRN 01/25/20 Reported Losartan-Hctz 50-12.5 Mg Tab (Losartan/Hydrochlorothiazide) 1 Each Tablet 1 Tab PO DAILY 01/25/20 Reported Gabapentin 600 Mg Tablet 600 Mg PO TID 01/25/20 Reported Xanax (Alprazolam) 0.5 Mg Tablet 1 Tab PO BID 01/25/20 Reported Tizanidine Hcl 4 Mg Tablet 1 Tab PO BID 01/25/20 Reported Mirapex (Pramipexole Di-Hcl) 0.25 Mg Tablet 0.5 Mg PO DAILY 1900 01/25/20 Reported Impression . IMPRESSION: 1. Progressive dyspnea secondary to acute exacerbation of chronic obstructive pulmonary disease. 2. Acute exacerbation of chronic obstructive pulmonary disease. 3. Tobacco dependent, quit approximately 2 weeks ago. 4. Other comorbidities including hypertension, chronic pain, status post spinal stimulator. 5. SARS-CoV-2 testing negative, both rapid and nucleic amplification test. 6. Abnormal chest x-ray. 7. Suspect severe tracheobronchial malacia CT Chest IMPRESSION: 1. No suspicious pulmonary nodule or mass. 2. Coronary artery calcifications. 3. Large hiatal hernia. 4. Infrarenal abdominal aortic aneurysm, incompletely included on the study. CT abdomen pelvis with contrast could better evaluate. 5. Emphysema. Plan . 12/31 I think patient will always wheeze, I think she has severe tracheobronchomalacia leading to significant wheeze. We will defer discharge to Dr. Lee continue supplemental oxygen as needed cont steroid and antibiotics increase activity as tolerated smoking cessation advised 12/30 Continue steroid, abx, breathing treatments Continue O2 supplementation, 2L baseline at home Activity as tolerated, consider 6min walk JOSE BARRETT MD Dec 31, 2021 11:55
[2021-12-31 15:00] VITALS: BP 158/83
[2021-12-31 19:00] VITALS: BP 153/75
--- NOTE | 2021-12-31 19:32 | PN ---
DATE: 12/31/2021 DAILY PROGRESS NOTE LOCATION: She is in room 558. SUBJECTIVE: This 76-year-old female remains hospitalized with exacerbation of COPD with shortness of breath, hypoxia. I saw her this morning. She states she is still quite short of breath with activity, but feels like she is a little bit improved. She is less wheezy at the time of my examination with better air movement. They are having troubles with IV access and have elected to switch her to oral antibiotics and prednisone this morning. Dr. Aguilar, who is her normal physician will be back tomorrow and can make a decision based on her exam at that point in time whether he feels she is back to anywhere close to her baseline or not. She definitely feels like there has been some improvement in the last 24 hours. OBJECTIVE: VITAL SIGNS: Stable. She is afebrile. GENERAL: She is awake and alert. CHEST: With expiratory wheezing, but not nearly to the extent that she has better air movement. HEART: Regular rate and rhythm. ABDOMEN: Benign. EXTREMITIES: No significant edema. ASSESSMENT: Exacerbation of chronic obstructive pulmonary disease, slowly improved. Chest x-ray showing bilateral lobe infiltrates. PLAN: Continue present care, which includes pulmonary toilet, transition IV antibiotics, steroids. Could discharge possibly tomorrow based on Dr. Aguilar's assessment. MARILU/JEFF MELVIN: MARILU/cliff TID: [id number]
[2021-12-31 23:00] VITALS: BP 146/83
[2022-01-01] MEDS ORDERED: ALBUTEROL SULFATE 2.5 MG/3 ML NEBU. NEB PRN (02:30)
[2022-01-01] MEDS: oxyCODONE/APAP 10/325 1 TAB TABLET PO PRN (02:36)
[2022-01-01 03:00] VITALS: BP 171/91
[2022-01-01 07:00] VITALS: BP 141/116
[2022-01-01] MEDS: IPRATRPIUM/ALBUTEROL 0.5/2.5MG 3 ML NEBU. NEB SCH ×2 (07:37→11:36)
[2022-01-01] MEDS: BUDESONIDE 0.5 MG/2 ML NEBU. NEB SCH (07:37)
[2022-01-01] MEDS: CHOLECALCIFEROL (VITAMIN D3) 1,000 UNIT TABLET PO SCH (09:36)
[2022-01-01] MEDS: predniSONE 10 MG TABLET PO SCH (09:37)
[2022-01-01] MEDS: AZITHROMYCIN 250 MG TABLET. PO SCH (09:37)
[2022-01-01] MEDS: CEFDINIR 300 MG CAPSULE PO SCH (09:37)
[2022-01-01] MEDS: LACTOBACILLUS RHAMNOSUS GG 1 CAPSULE. PO SCH (09:37)
[2022-01-01] MEDS: ALPRAZolam 0.5 MG TABLET PO SCH (09:37)
[2022-01-01] MEDS: PANTOPRAZOLE 40 MG TABLET.DR. PO SCH (09:37)
[2022-01-01] MEDS: GABAPENTIN 300 MG CAPSULE. PO SCH ×2 (09:37→13:49)
[2022-01-01] MEDS: tiZANidine 4 MG TABLET. PO SCH (09:37)
[2022-01-01] MEDS: hydroCHLOROthiazide 12.5 MG CAPSULE PO SCH (09:38)
[2022-01-01] MEDS: LOSARTAN POTASSIUM 50 MG TABLET. PO SCH (09:38)
--- NOTE | 2022-01-01 10:53 | PDOC ---
PULMONARY PROGRESS NOTES DATE: 01/01/22 TIME: 10:51 Subjective Patient is sitting at the edge of bed, resting comfortably 1 L nasal cannula, reports several coughing episodes overnight impeding her sleep. She also reports shortness of breath with exertion noticed the morning. Afebrile no overnight concerns from nursing Vitals Vital Signs Date Time Temp Pulse Resp B/P (MAP) Pulse Ox O2 Delivery O2 Flow Rate FiO2 01/01/22 09:38 89 141/116 01/01/22 08:00 Nasal Cannula 1.0 01/01/22 07:37 99 01/01/22 07:00 97.4 20 97.4 ROS: No Nausea, No Chest Pain, No Abdominal Pain, No Increase Cough General: Alert, No acute distress Lungs: Clear, Wheezing Cardiovascular: S1, S2 Abdomen: Soft, Non-tender Extremities: No Edema Skin: Warm, No Rashes Medications Active Scripts Medications Dose Route/Sig Max Daily Dose Days Date Category Dose Instructions Advair 100-50 Diskus (Fluticasone/Salmeterol) 1 Each Disk.w.dev 1 Puff IH BID 09/26/21 Reported Albuterol Sulfate Neb Soln (Albuterol Sulfate) 0.63 Mg/3 Ml Vial.neb 1 Vial NEB TID 09/26/21 Reported Miralax (Polyethylene Glycol 3350) 17 Gm Powd.pack 1 Packet PO DAILY 2 06/28/21 Reported dissolve in water Prilosec Otc (Omeprazole Magnesium) 20 Mg Tablet.dr 10 Mg PO DAILY 01/25/20 Reported Vitamin D3 (Cholecalciferol (Vitamin D3)) 250 Mcg Tablet 500 Mcg PO DAILY 01/25/20 Reported Percocet 10-325 Mg Tablet (Oxycodone/Acetaminophen) 1 Each Tablet 1.5 Tab PO PRN Q8HRS PRN MDD 4 Tablet(s) 5 01/25/20 Reported Percocet 10-325 Mg Tablet (Oxycodone/Acetaminophen) 1 Each Tablet 1 Tab PO PRN Q6HRS PRN 01/25/20 Reported Losartan-Hctz 50-12.5 Mg Tab (Losartan/Hydrochlorothiazide) 1 Each Tablet 1 Tab PO DAILY 01/25/20 Reported Gabapentin 600 Mg Tablet 600 Mg PO TID 01/25/20 Reported Xanax (Alprazolam) 0.5 Mg Tablet 1 Tab PO BID 01/25/20 Reported Tizanidine Hcl 4 Mg Tablet 1 Tab PO BID 01/25/20 Reported Mirapex (Pramipexole Di-Hcl) 0.25 Mg Tablet 0.5 Mg PO DAILY 1900 01/25/20 Reported Impression . IMPRESSION: 1. Progressive dyspnea secondary to acute exacerbation of chronic obstructive pulmonary disease. 2. Acute exacerbation of chronic obstructive pulmonary disease. 3. Tobacco dependent, quit approximately 2 weeks ago. 4. Other comorbidities including hypertension, chronic pain, status post spinal stimulator. 5. SARS-CoV-2 testing negative, both rapid and nucleic amplification test. 6. Abnormal chest x-ray. 7. Suspect severe tracheobronchial malacia CT Chest IMPRESSION: 1. No suspicious pulmonary nodule or mass. 2. Coronary artery calcifications. 3. Large hiatal hernia. 4. Infrarenal abdominal aortic aneurysm, incompletely included on the study. CT abdomen pelvis with contrast could better evaluate. 5. Emphysema. Plan . 01/01/2022 Suspected chronic wheeze secondary to tracheobronchomalacia Okay to discharge from our standpoint Continue supplemental oxygen as needed, currently on 1 L nasal cannula, patient has 2 L nasal cannula at baseline Continue prednisone Continue azithromycin Physical therapy/Occupational Therapy, encourage ambulation Bronchodilators as needed Educated on the importance of cessation DVT/GI prophylaxis: Ambulation/Protonix CODE STATUS: Full 12/31 I think patient will always wheeze, I think she has severe tracheobronchomalacia leading to significant wheeze. We will defer discharge to Dr. Lee continue supplemental oxygen as needed cont steroid and antibiotics increase activity as tolerated smoking cessation advised 12/30 Continue steroid, abx, breathing treatments Continue O2 supplementation, 2L baseline at home Activity as tolerated, consider 6min walk JOSE BARRETT MD Jan 01, 2022 10:53
[2022-01-01 11:00] VITALS: BP 130/79
--- NOTE | 2022-01-01 11:42 | PDOC ---
Provider Note Date of Service: DATE: 01/01/22 TIME: 11:41 Provider Note [id number] Justifications for Admission Other Justification MARLA MARTINEZ MD Jan 01, 2022 11:42
--- NOTE | 2022-01-01 11:56 | DS ---
DATE OF DISCHARGE: 01/01/2022 HOSPITAL SUMMARY: A 76-year-old white female with known COPD patient on oxygen, came in with exacerbation of the same. Blood gases were unremarkable as was the chemistry profile and CBC and urinalysis. COVID serology was negative as was A and B flu. Chest x-ray and CT scan of the chest showed no acute lesions present with a large hiatal hernia present as well. Cultures of blood were negative. She received IV and oral antibiotics and steroids and is on oral and doing well at this time and is comfortable, will be followed as an outpatient. FINAL DIAGNOSIS: Acute exacerbation of chronic obstructive pulmonary disease. OPERATIONS, PROCEDURES, AND COMPLICATIONS: None. CONSULTATION: Patricia Salgado MD. DISPOSITION: Prednisone taper over 6 days, cefdinir 300 mg twice a day for 3 more days. Rest of home meds all remain the same. Follow up with Dr. Lubin or myself in 1-2 weeks. Complete tobacco avoidance is strongly encouraged and we will review full vaccination status in the office. MARY MELVIN: Shanti TID: [id number]
--- NOTE | 2022-01-01 16:18 | NUR ---
Discharge Note: JARVIS THOMSON [address] Discharge instructions and discharge home medications reviewed with the patient and a copy given. All questions have been answered and understanding verbalized. The following instructions and handouts were given: Cefdinir 300 mg cap, 1 cap BID x 3days; prednisone taper for 6 days-prescription called to [facility] at 1614. Home meds as directed Follow up with Dr. Lubin in 1 to 2 weeks Patient discharged to home with self care on RA via at 1423 accompanied by family member.
== END 2022-01-01 14:23 | disposition home or self-care (01) | DRG 190 ==
LOC: ER 11:47 → ED HOLD 14:20 → 5 SOUTH 16:31
PROVIDERS: ADMIT Family Medicine; ATTEND Family Medicine
DX: J44.1 Chronic obstructive pulmonary disease with (acute) exacerbation (principal); J18.9 Pneumonia, unspecified organism; F17.200 Nicotine dependence, unspecified, uncomplicated; G89.29 Other chronic pain; I10 Essential (primary) hypertension; I25.10 Atherosclerotic heart disease of native coronary artery without angina pectoris; K44.9 Diaphragmatic hernia without obstruction or gangrene; R09.02 Hypoxemia; Z20.822 Contact with and (suspected) exposure to COVID-19; Z90.710 Acquired absence of both cervix and uterus; Z90.49 Acquired absence of other specified parts of digestive tract; Z88.8 Allergy status to other drugs, medicaments and biological substances; Z71.6 Tobacco abuse counseling
CPT/HCPCS: 36415; 36600; 71045; 71250; 80053; 81001; 82805; 83605; 83880; 84484; 85025; 87040; 87426; 87428; 93005; 94640; 94667; 94668; 94760; 96365; 96375; J0456; J0696; J2930; J7030; J7050; J7512; U0003; U0005; 99285-25; G0378; J7613; J7626

== ENCOUNTER 2022-02-22 11:29 | Inpatient (IN) | payer MEDICARE, BC ==
[~2022-02-22] VITALS: Ht 152.4 cm; Wt 73.1 kg
[2022-02-22] MEDS ORDERED: IPRATRPIUM/ALBUTEROL 0.5/2.5MG 3 ML NEBU. NEB ONE (11:45)
[2022-02-22] MEDS ORDERED: methylPREDNISolone SOD SUCC PF 125 MG/2 ML VIAL. IV ONE (11:45)
[2022-02-22 12:13] LABS: BASO # 0.1 x10^3/uL (0.0-0.2); BASO % 1 % (0-3); EOS # 0.7 x10^3/uL (0.0-0.7); EOS % 10 % (0-3); HEMATOCRIT 40.4 % (36.0-47.0); LYMPH # 1.5 x10^3/uL (1.0-4.8); LYMPH % 21 % (24-48); MEAN CORPUSCULAR HEMOGLOBIN 29 pg (25-35); MEAN CORPUSCULAR HGB CONC 32 g/dL (31-37); MEAN CORPUSCULAR VOLUME 89 fL (79-100); MONO # 0.6 x10^3/uL (0.0-1.1); MONO % 8 % (0-9); NEUT # 4.2 x10^3/uL (1.8-7.7); NEUT % 60 % (31-73); PLATELET COUNT 162 x10^3/uL (140-400); RED BLOOD COUNT 4.55 x10^6/uL (3.50-5.40); RED CELL DISTRIBUTION WIDTH 16.9 % (11.5-14.5)
[2022-02-22 12:23] LABS: PROTHROMBIN TIME PATIENT 12.2 SEC (11.7-14.0)
[2022-02-22 12:25] LABS: CALCIUM 8.9 mg/dL (8.5-10.1); CREATININE 0.8 mg/dL (0.6-1.0); GFR 69.4; POTASSIUM 4.4 mmol/L (3.5-5.1)
[2022-02-22 12:32] LABS: ALBUMIN 4.1 g/dL (3.4-5.0); ALBUMIN/GLOBULIN RATIO 1.1 (1.0-1.7); TOTAL BILIRUBIN 0.4 mg/dL (0.2-1.0); TOTAL PROTEIN 7.7 g/dL (6.4-8.2)
--- NOTE | 2022-02-22 12:44 | RAD ---
EXAMINATION: XR CHEST 1V CLINICAL HISTORY: Shortness of breath. EXAM DATE/TIME: 02/22/2022 12:17 PM COMPARISON: 01/31/2020 FINDINGS: Lines, Tubes, and Devices: None. Cardiomediastinal Silhouette: Prominent cardiac silhouette, likely accentuated by AP portable techniq ue. Aortic atherosclerotic calcification. Lungs and Pleura: Mild patchy opacities in the right lower lung zone. Increased nonspecific diffuse i nterstitial prominence, possibly chronic. No evidence of pleural effusion. Bones and Soft Tissues: No acute osseous abnormality. Moderate to large hiatal hernia. Partially visu alized spinal stimulator leads. IMPRESSION: Mild right basilar patchy airspace disease, possibly subsegmental atelectasis. Nonspecific interstitial prominence, possibly chronic but could be related to mild edema. Electronically signed by: James Reyes DO (02/22/2022 12:42 PM) [id number]
--- NOTE | 2022-02-22 13:28 | PHYS DOC ---
Past Medical History Past Medical History: COPD, Hypertension, Other Additional Past Medical Histor: CHRONIC BACK PAIN,HEMORRHOID,HIATAL HERNIA,AAA Past Surgical History: No Surgical History Additional Past Surgical Histo: SPINAL STIMULATOR,HIP SX,SHOULDER SX,PAIN PUMP Smoking Status: Former Smoker Alcohol Use: None Drug Use: None Adult General Chief Complaint Chief Complaint: SHORTNESS OF BREATH HPI HPI Patient is a 76 year old female presenting to the emergency department for evaluation of worsening shortness of breath over the past 2 to 3 days. Patient has a history of COPD and was being seen by her primary care provider Dr. Mejai in the clinic and she was too short of breath there and recommended she come to the emergency department. She usually wears 2 and half liters of oxygen and her baseline oxygen saturation is 95% but at rest she was 92%. She has been coughing but says she has had no fevers chills nausea vomiting or other systemic symptoms. She is not on antibiotics or steroids at this time but says that she was admitted to the hospital 3 to 4 weeks ago and was on antibiotics and steroids at that time. Patient appears dyspneic but nontoxic. Review of Systems Review of Systems Constitutional: Denies fever or chills [] Eyes: Denies change in visual acuity, redness, or eye pain [] HENT: Denies nasal congestion or sore throat [] Respiratory: + cough, shortness of breath [] Cardiovascular: No additional information not addressed in HPI [] GI: Denies abdominal pain, nausea, vomiting, bloody stools or diarrhea [] : Denies dysuria or hematuria [] Musculoskeletal: Denies back pain or joint pain [] Integument: Denies rash or skin lesions [] Neurologic: Denies headache, focal weakness or sensory changes [] Endocrine: Denies polyuria or polydipsia [] All other systems were reviewed and found to be within normal limits, except as documented in this note. Current Medications Current Medications Current Medications Medications (Trade) Dose Ordered Sig/Pedro Start Time Stop Time Status Last Admin Dose Admin Albuterol/ Ipratropium (Duoneb) 3 ml 1X ONCE 02/22/22 11:45 02/22/22 11:47 DC 02/22/22 12:03 3 ML Methylprednisolone Sodium Succinate (SOLU-Medrol 125MG VIAL) 125 mg 1X ONCE 02/22/22 11:45 02/22/22 11:47 DC 02/22/22 12:27 125 MG Allergies Allergies Allergies Coded Allergies Type Severity Reaction Last Updated Verified Iodinated Contrast Media Adverse Reaction Severe SEIZURES 02/22/22 Yes Physical Exam Physical Exam Constitutional: Chronically ill-appearing female in respiratory distress HENT: Normocephalic, atraumatic, bilateral external ears normal, oropharynx moist, no oral exudates, nose normal. [] Eyes: PERRLA, EOMI, conjunctiva normal, no discharge. [] Neck: Normal range of motion, no tenderness, supple, no stridor. [] Cardiovascular:Heart rate regular rhythm, no murmur [] Lungs & Thorax: Bilateral breath sounds diminished with rhonchi with inspiratory and expiratory wheezing Abdomen: Bowel sounds normal, soft, no tenderness, no masses, no pulsatile masses. [] Skin: Warm, dry, no erythema, no rash. [] Back: No tenderness, no CVA tenderness. [] Extremities: No tenderness, no cyanosis, no clubbing, ROM intact, no edema. [] Neurologic: Alert and oriented X 3, normal motor function, normal sensory function, no focal deficits noted. [] Current Patient Data Vital Signs Vital Signs Date Time Temp Pulse Resp B/P (MAP) Pulse Ox O2 Delivery O2 Flow Rate FiO2 02/22/22 12:03 94 Nasal Cannula 2.0 02/22/22 11:35 98.1 87 32 136/83 (100) 98.1 Lab Values Laboratory Tests Test 02/22/22 12:00 White Blood Count 7.0 x10^3/uL (4.0-11.0) Red Blood Count 4.55 x10^6/uL (3.50-5.40) Hemoglobin 13.0 g/dL (12.0-15.5) Hematocrit 40.4 % (36.0-47.0) Mean Corpuscular Volume 89 fL (79-100) Mean Corpuscular Hemoglobin 29 pg (25-35) Mean Corpuscular Hemoglobin Concent 32 g/dL (31-37) Red Cell Distribution Width 16.9 % (11.5-14.5) H Platelet Count 162 x10^3/uL (140-400) Neutrophils (%) (Auto) 60 % (31-73) Lymphocytes (%) (Auto) 21 % (24-48) L Monocytes (%) (Auto) 8 % (0-9) Eosinophils (%) (Auto) 10 % (0-3) H Basophils (%) (Auto) 1 % (0-3) Neutrophils # (Auto) 4.2 x10^3/uL (1.8-7.7) Lymphocytes # (Auto) 1.5 x10^3/uL (1.0-4.8) Monocytes # (Auto) 0.6 x10^3/uL (0.0-1.1) Eosinophils # (Auto) 0.7 x10^3/uL (0.0-0.7) Basophils # (Auto) 0.1 x10^3/uL (0.0-0.2) Prothrombin Time 12.2 SEC (11.7-14.0) Prothrombin Time INR 0.9 (0.8-1.1) Activated Partial Thromboplast Time 25 SEC (24-38) Sodium Level 138 mmol/L (136-145) Potassium Level 4.4 mmol/L (3.5-5.1) Chloride Level 102 mmol/L (98-107) Carbon Dioxide Level 31 mmol/L (21-32) Anion Gap 5 (6-14) L Blood Urea Nitrogen 16 mg/dL (7-20) Creatinine 0.8 mg/dL (0.6-1.0) Estimated GFR (Cockcroft-Gault) 69.4 BUN/Creatinine Ratio 20 (6-20) Glucose Level 104 mg/dL (70-99) H Lactic Acid Level 0.6 mmol/L (0.4-2.0) Calcium Level 8.9 mg/dL (8.5-10.1) Total Bilirubin 0.4 mg/dL (0.2-1.0) Aspartate Amino Transferase (AST) 19 U/L (15-37) Alanine Aminotransferase (ALT) 17 U/L (14-59) Alkaline Phosphatase 81 U/L (46-116) Troponin I High Sensitivity 7 ng/L (4-50) LK-Cro-P-Type Natriuretic Peptide 394 pg/mL (0-449) Total Protein 7.7 g/dL (6.4-8.2) Albumin 4.1 g/dL (3.4-5.0) Albumin/Globulin Ratio 1.1 (1.0-1.7) Laboratory Tests 02/22/22 12:00 Laboratory Tests 02/22/22 12:00 EKG EKG Sinus rhythm at 82 bpm with leftward axis no ST elevation or depression with normal T waves and normal intervals. Radiology/Procedures Radiology/Procedures [] Course & Med Decision Making Course & Med Decision Making Given patient's increased work of breathing and decreased oxygen saturation from her baseline and her primary care providers instruction for her to come here and get admitted to hospital I will plan on admitting her. She was given a DuoNeb and Solu-Medrol which helped her here in the emergency department. Dragon Disclaimer Dragon Disclaimer This electronic medical record was generated, in whole or in part, using a voice recognition dictation system. Departure Departure Referrals: RAMU MEJIA MD (PCP) MARLA CHAVEZ DO Feb 22, 2022 13:28
[2022-02-22 13:29] LABS: INFLUENZA A PATIENT NEGATIVE (NEGATIVE); INFLUENZA B PATIENT NEGATIVE (NEGATIVE)
--- NOTE | 2022-02-22 13:47 | EKG ---
[facility] [address] [place] [address] Test Date: 2022-02-22 Test Time: 11:53:20 Pat Name: JARVIS THOMSON Department: Room: Gender: F [employer]: : [id number] Requested By: MARLA CHAVEZ Order Number: [id number] Reading MD: Antonio Dhaliwal Measurements Intervals [place] Rate: 82 P: 49 SC: 134 QRS: -4 QRSD: 122 T: -5 QT: 378 QTc: 445 Interpretive Statements SINUS RHYTHM LEFTWARD AXIS INCOMPLETE RIGHT BUNDLE BRANCH BLOCK T ABNORMALITY IN INFERIOR LEADS Electronically Signed On 03-05-2022 9:47:54 CDT by Antonio Dhaliwal
[2022-02-22] MEDS ORDERED: ONDANSETRON PF 4 MG/2 ML VIAL. IVP PRN (14:30)
[2022-02-22] MEDS ORDERED: AZITHROMYCIN 250 MG TABLET. PO ONE (14:30)
[2022-02-22] MEDS ORDERED: cefTRIAXone IV Push 1 GM VIAL. IVP ONE (14:30)
[2022-02-22 19:30] VITALS: BP 139/71
[2022-02-22 23:00] VITALS: BP 123/71
[2022-02-22] MEDS: IPRATRPIUM/ALBUTEROL 0.5/2.5MG 3 ML NEBU. NEB SCH (23:18)
[2022-02-23] MEDS: oxyCODONE/APAP 10/325 1 TAB TABLET PO PRN ×3 (00:01→15:18)
[2022-02-23] MEDS: PRAMIPEXOLE 0.25 MG TABLET. PO SCH ×2 (00:01→18:28)
[2022-02-23 03:00] VITALS: BP 138/87
[2022-02-23 07:14] VITALS: BP 135/85
[2022-02-23] MEDS: IPRATRPIUM/ALBUTEROL 0.5/2.5MG 3 ML NEBU. NEB SCH ×4 (07:19→18:22)
[2022-02-23] MEDS ORDERED: IPRATRPIUM/ALBUTEROL 0.5/2.5MG 3 ML NEBU. NEB SCH (08:00)
[2022-02-23] MEDS ORDERED: BUDESONIDE 0.5 MG/2 ML NEBU. NEB SCH (08:00)
[2022-02-23] MEDS: GABAPENTIN 300 MG CAPSULE. PO SCH ×3 (08:42→21:20)
[2022-02-23] MEDS: hydroCHLOROthiazide 12.5 MG TABLET PO SCH (08:42)
[2022-02-23] MEDS: ALPRAZolam 0.5 MG TABLET PO SCH ×2 (08:42→21:20)
[2022-02-23] MEDS: CHOLECALCIFEROL (VITAMIN D3) 1,000 UNIT TABLET PO SCH (08:42)
[2022-02-23] MEDS: tiZANidine 4 MG TABLET. PO SCH ×2 (08:43→21:20)
[2022-02-23] MEDS: PANTOPRAZOLE 40 MG TABLET.DR. PO SCH (08:43)
[2022-02-23] MEDS: LOSARTAN POTASSIUM 50 MG TABLET. PO SCH (08:43)
[2022-02-23] MEDS: POLYETHYLENE GLYCOL 3350 17 GM PACKET. PO SCH (08:44)
[2022-02-23 09:53] LABS: BASO % 0 % (0-3); EOS % 0 % (0-3); HEMATOCRIT 39.3 % (36.0-47.0); LYMPH % 12 % (24-48); MEAN CORPUSCULAR HEMOGLOBIN 29 pg (25-35); MEAN CORPUSCULAR HGB CONC 33 g/dL (31-37); MEAN CORPUSCULAR VOLUME 89 fL (79-100); MONO # 0.6 x10^3/uL (0.0-1.1); MONO % 7 % (0-9); NEUT # 6.6 x10^3/uL (1.8-7.7); NEUT % 81 % (31-73); PLATELET COUNT 168 x10^3/uL (140-400); RED BLOOD COUNT 4.43 x10^6/uL (3.50-5.40); RED CELL DISTRIBUTION WIDTH 16.9 % (11.5-14.5); WHITE BLOOD COUNT 8.2 x10^3/uL (4.0-11.0)
[2022-02-23 10:00] LABS: CREATININE 0.8 mg/dL (0.6-1.0); GFR 69.4; POTASSIUM 4.1 mmol/L (3.5-5.1)
[2022-02-23 11:00] VITALS: BP 125/65
[2022-02-23] MEDS: methylPREDNISolone SOD SUCC PF 40 MG/ML VIAL. IV SCH ×2 (11:20→21:20)
--- NOTE | 2022-02-23 13:34 | HP ---
DATE OF SERVICE: 02/23/2022 ADMIT DATE: 02/22/2022 CHIEF COMPLAINT: Dyspnea. HISTORY OF PRESENT ILLNESS: A 76-year-old white female with known oxygen dependent COPD, was admitted about a month ago for COPD exacerbation and got better with steroids and antibiotics, but we will see her in the office on the day of admission by Dr. Lubin with increasing shortness of breath, nonproductive cough and general malaise for about 2 weeks. ER evaluation showed low-grade pneumonia on the right side with no other focal signs. She was admitted with IV steroids and Rocephin. PAST MEDICAL HISTORY: Multiple meds listed per the chart. She has a spinal implant for chronic pain and takes opioids. IMMUNIZATION STATUS: Up to date. SOCIAL HISTORY: Quit smoking about 3 weeks ago after a long tobacco history. . No longer employed. FAMILY HISTORY: Unremarkable. REVIEW OF SYSTEMS: No other problems. OBJECTIVE: ENT: All within normal limits. NECK: No masses, nodes or thyroid enlargement. LUNGS: Decreased breath sounds, diffuse expiratory wheezes. Mild tachypnea. CARDIOVASCULAR: Regular rate. No irregular beat, murmur or tachycardia. ABDOMEN: Benign. EXTREMITIES: Unremarkable. Mild clubbing is noted. Nail beds are pink. NEUROLOGIC: Nonfocal. ASSESSMENT: Acute exacerbation of chronic obstructive pulmonary disease. May have a component of pneumonia present. COVID is negative. PLAN: Rocephin, IV steroids, respiratory treatments, legionella antigen and further evaluation as indicated. LONI MLEVIN: Shanti TID: [id number]
[2022-02-23 15:00] VITALS: BP 135/60
[2022-02-23] MEDS: cefTRIAXone IV Push 1 GM VIAL. IVP SCH (15:19)
[2022-02-23] MEDS ORDERED: PRAMIPEXOLE 0.25 MG TABLET. PO SCH (17:00)
[2022-02-23 19:00] VITALS: BP 160/82
--- NOTE | 2022-02-23 20:00 | NUR ---
Patient stated that daughter was concerned about her IV not working since it burned when used. When I flushed her IV she did not complain of pain/discomfort but said that it is usually just when the steroid is pushed. Before giving her steroid, I redressed the IV and flushed slowly. Patient said the IV felt much better and she did not have discomfort at all. IV still remains in L AC and flushes well, no signs of infiltration.
[2022-02-23] MEDS: LACTOBACILLUS RHAMNOSUS GG 1 CAPSULE. PO SCH (21:20)
[2022-02-23 23:00] VITALS: BP 135/78
[2022-02-24 03:00] VITALS: BP 151/78
[2022-02-24 07:00] VITALS: BP 147/75
[2022-02-24] MEDS: methylPREDNISolone SOD SUCC PF 40 MG/ML VIAL. IV SCH ×2 (08:12→21:02)
[2022-02-24] MEDS: LACTOBACILLUS RHAMNOSUS GG 1 CAPSULE. PO SCH ×2 (08:13→21:02)
[2022-02-24] MEDS: PANTOPRAZOLE 40 MG TABLET.DR. PO SCH (08:13)
[2022-02-24] MEDS: GABAPENTIN 300 MG CAPSULE. PO SCH ×3 (08:13→21:02)
[2022-02-24] MEDS: ALPRAZolam 0.5 MG TABLET PO SCH ×2 (08:13→21:02)
[2022-02-24] MEDS: hydroCHLOROthiazide 12.5 MG TABLET PO SCH (08:13)
[2022-02-24] MEDS: tiZANidine 4 MG TABLET. PO SCH ×2 (08:13→21:02)
[2022-02-24] MEDS: POLYETHYLENE GLYCOL 3350 17 GM PACKET. PO SCH (08:14)
[2022-02-24] MEDS: CHOLECALCIFEROL (VITAMIN D3) 1,000 UNIT TABLET PO SCH (08:14)
[2022-02-24] MEDS: LOSARTAN POTASSIUM 50 MG TABLET. PO SCH (08:14)
[2022-02-24] MEDS: IPRATRPIUM/ALBUTEROL 0.5/2.5MG 3 ML NEBU. NEB SCH ×4 (08:19→20:00)
--- NOTE | 2022-02-24 09:13 | PDOC ---
Provider Note Date of Service: DATE: 02/24/22 TIME: 09:12 Provider Note stable, still mildly dyspneic- had low dose ct 07/10, ok- check d dimer, rest same Justifications for Admission Other Justification MARLA MARTINEZ MD Feb 24, 2022 09:13
[2022-02-24 11:00] VITALS: BP 132/65
[2022-02-24] MEDS: cefTRIAXone IV Push 1 GM VIAL. IVP SCH (12:43)
[2022-02-24 15:00] VITALS: BP 151/79
[2022-02-24] MEDS: PRAMIPEXOLE 0.25 MG TABLET. PO SCH (16:02)
[2022-02-24 19:00] VITALS: BP 144/80
[2022-02-24 23:00] VITALS: BP 165/89
[2022-02-25 03:00] VITALS: BP 168/83
[2022-02-25] MEDS: IPRATRPIUM/ALBUTEROL 0.5/2.5MG 3 ML NEBU. NEB SCH ×4 (05:54→18:11)
[2022-02-25 07:00] VITALS: BP 157/73
--- NOTE | 2022-02-25 08:48 | PDOC ---
Provider Note Date of Service: DATE: 02/25/22 TIME: 08:47 Provider Note vss, still some dry cough and dyspnea, no sputum- has high d dimer so will do ct angio to r/o occult PE Justifications for Admission Other Justification MARLA MARTINEZ MD Feb 25, 2022 08:48
[2022-02-25] MEDS: POLYETHYLENE GLYCOL 3350 17 GM PACKET. PO SCH (09:00)
[2022-02-25] MEDS: hydroCHLOROthiazide 12.5 MG TABLET PO SCH (09:29)
[2022-02-25] MEDS: GABAPENTIN 300 MG CAPSULE. PO SCH ×3 (09:29→21:09)
[2022-02-25] MEDS: LOSARTAN POTASSIUM 50 MG TABLET. PO SCH (09:29)
[2022-02-25] MEDS: LACTOBACILLUS RHAMNOSUS GG 1 CAPSULE. PO SCH ×2 (09:29→21:09)
[2022-02-25] MEDS: ALPRAZolam 0.5 MG TABLET PO SCH ×2 (09:29→21:09)
[2022-02-25] MEDS: tiZANidine 4 MG TABLET. PO SCH ×2 (09:29→21:09)
[2022-02-25] MEDS: PANTOPRAZOLE 40 MG TABLET.DR. PO SCH (09:29)
[2022-02-25] MEDS ORDERED: AZITHROMYCIN 250 MG TABLET. PO ONE (09:30)
[2022-02-25] MEDS: CHOLECALCIFEROL (VITAMIN D3) 1,000 UNIT TABLET PO SCH (09:30)
[2022-02-25] MEDS: methylPREDNISolone SOD SUCC PF 40 MG/ML VIAL. IV SCH ×2 (09:31→21:09)
[2022-02-25 11:00] VITALS: BP 144/77
[2022-02-25 15:00] VITALS: BP 148/89
[2022-02-25] MEDS: cefTRIAXone IV Push 1 GM VIAL. IVP SCH (15:14)
[2022-02-25] MEDS: PRAMIPEXOLE 0.25 MG TABLET. PO SCH (18:06)
[2022-02-25 19:00] VITALS: BP 146/83
[2022-02-25] MEDS: ENOXAPARIN 40 MG/0.4 ML SYRINGE. SQ SCH ×2 (21:00→21:09)
[2022-02-25 23:00] VITALS: BP 179/86
[2022-02-26 03:00] VITALS: BP 153/80
[2022-02-26] MEDS: IPRATRPIUM/ALBUTEROL 0.5/2.5MG 3 ML NEBU. NEB SCH ×4 (05:56→20:00)
[2022-02-26 07:00] VITALS: BP 169/84
[2022-02-26] MEDS: POLYETHYLENE GLYCOL 3350 17 GM PACKET. PO SCH (09:00)
[2022-02-26] MEDS: methylPREDNISolone SOD SUCC PF 40 MG/ML VIAL. IV SCH ×2 (09:19→20:16)
[2022-02-26] MEDS: PANTOPRAZOLE 40 MG TABLET.DR. PO SCH (09:20)
[2022-02-26] MEDS: GABAPENTIN 300 MG CAPSULE. PO SCH ×3 (09:20→20:15)
[2022-02-26] MEDS: ALPRAZolam 0.5 MG TABLET PO SCH ×2 (09:20→20:15)
[2022-02-26] MEDS: LACTOBACILLUS RHAMNOSUS GG 1 CAPSULE. PO SCH ×2 (09:20→20:15)
[2022-02-26] MEDS: LOSARTAN POTASSIUM 50 MG TABLET. PO SCH (09:20)
[2022-02-26] MEDS: hydroCHLOROthiazide 12.5 MG TABLET PO SCH (09:20)
[2022-02-26] MEDS: CHOLECALCIFEROL (VITAMIN D3) 1,000 UNIT TABLET PO SCH (09:20)
[2022-02-26] MEDS: tiZANidine 4 MG TABLET. PO SCH ×2 (09:20→20:15)
[2022-02-26] MEDS: oxyCODONE/APAP 10/325 1 TAB TABLET PO PRN ×2 (09:23→20:19)
[2022-02-26 11:00] VITALS: BP 142/78
--- NOTE | 2022-02-26 12:33 | PDOC ---
Provider Note Date of Service: DATE: 02/26/22 TIME: 12:33 Provider Note status same, v/q pending, repeat cxr , rest same Justifications for Admission Other Justification MARLA MARTINEZ MD Feb 26, 2022 12:33
[2022-02-26] MEDS: cefTRIAXone IV Push 1 GM VIAL. IVP SCH (14:06)
--- NOTE | 2022-02-26 14:32 | RAD ---
PA and lateral chest. HISTORY: Dyspnea PA and lateral views were taken of the chest. Comparison is made with a study from February 22. There is a small right pleural effusion. There is a large hiatus hernia. Heart is mildly enlarged. There are s timulating leads in the thoracic spinal canal. There is linear scarring or atelectasis in the lung ba ses without other infiltrates. IMPRESSION: 1. Small right pleural effusion. 2. Mild basilar linear atelectasis without other infiltrates. 3. Large hiatus hernia. Electronically signed by: Negrito Pleitez MD (02/26/2022 2:29 PM) [id number]
[2022-02-26 15:00] VITALS: BP 135/78
[2022-02-26] MEDS: PRAMIPEXOLE 0.25 MG TABLET. PO SCH (17:22)
[2022-02-26 19:00] VITALS: BP 151/73
[2022-02-26] MEDS: ENOXAPARIN 40 MG/0.4 ML SYRINGE. SQ SCH (20:20)
[2022-02-26 23:00] VITALS: BP 133/72
[2022-02-27 02:48] VITALS: BP 144/79
[2022-02-27] MEDS: ALBUTEROL SULFATE 2.5 MG/3 ML NEBU. NEB PRN ×2 (03:19→16:53)
[2022-02-27] MEDS: PANTOPRAZOLE 40 MG TABLET.DR. PO SCH (05:57)
[2022-02-27 07:00] VITALS: BP 153/76
[2022-02-27] MEDS: IPRATRPIUM/ALBUTEROL 0.5/2.5MG 3 ML NEBU. NEB SCH ×4 (07:47→21:10)
[2022-02-27] MEDS: POLYETHYLENE GLYCOL 3350 17 GM PACKET. PO SCH (09:00)
[2022-02-27] MEDS: CHOLECALCIFEROL (VITAMIN D3) 1,000 UNIT TABLET PO SCH (09:27)
[2022-02-27] MEDS: oxyCODONE/APAP 10/325 1 TAB TABLET PO PRN (09:27)
[2022-02-27] MEDS: hydroCHLOROthiazide 12.5 MG TABLET PO SCH (09:28)
[2022-02-27] MEDS: LACTOBACILLUS RHAMNOSUS GG 1 CAPSULE. PO SCH ×2 (09:29→20:28)
[2022-02-27] MEDS: tiZANidine 4 MG TABLET. PO SCH ×2 (09:29→20:28)
[2022-02-27] MEDS: ALPRAZolam 0.5 MG TABLET PO SCH ×2 (09:29→20:28)
[2022-02-27] MEDS: LOSARTAN POTASSIUM 50 MG TABLET. PO SCH (09:29)
[2022-02-27] MEDS: GABAPENTIN 300 MG CAPSULE. PO SCH ×3 (09:29→20:28)
[2022-02-27] MEDS: methylPREDNISolone SOD SUCC PF 40 MG/ML VIAL. IV SCH ×2 (09:30→20:29)
--- NOTE | 2022-02-27 10:51 | PDOC ---
Provider Note Date of Service: DATE: 02/27/22 TIME: 10:51 Provider Note vss, status same- down for vq scan, cxr same Justifications for Admission Other Justification MARLA MARTINEZ MD Feb 27, 2022 10:51
[2022-02-27 11:00] VITALS: BP 147/77
--- NOTE | 2022-02-27 12:55 | RAD ---
NUCLEAR MEDICINE VENTILATION PERFUSION SCAN History: Shortness of air, on L2. Comparison: Two-view chest February 26, 2022 Technique: Patient initially ventilated with 10.8 mCi of xenon-133 gas. Anterior and posterior imagi ng of the lungs during initial breath-hold, equilibrium and, washout phase images is performed. Perfu jenae portion performed after intravenous administration of 5.5 mCi Technetium 99m MAA. Multiple proje ction planar images of the lungs were obtained. Findings: The initial breath-hold ventilation images are homogeneous. There is no significant retention of trac er on the washout phase images. Perfusion images demonstrate no segmental perfusion defects. The cardiac silhouette is prominent. IMPRESSION: Normal VQ scan. Negative for pulmonary embolism. Electronically signed by: Mahamed Valencia MD (02/27/2022 12:52 PM) [id number]
[2022-02-27] MEDS: cefTRIAXone IV Push 1 GM VIAL. IVP SCH (14:23)
[2022-02-27 15:00] VITALS: BP 137/81
[2022-02-27] MEDS: PRAMIPEXOLE 0.25 MG TABLET. PO SCH (17:48)
[2022-02-27] MEDS ORDERED: AZITHROMYCIN 250 MG TABLET. PO ONE (18:00)
[2022-02-27 19:34] VITALS: BP 144/88
[2022-02-27] MEDS: ENOXAPARIN 40 MG/0.4 ML SYRINGE. SQ SCH (20:26)
[2022-02-27 22:41] VITALS: BP 129/79
[2022-02-28 02:58] VITALS: BP 142/69
[2022-02-28] MEDS: ALBUTEROL SULFATE 2.5 MG/3 ML NEBU. NEB PRN (03:30)
[2022-02-28] MEDS: PANTOPRAZOLE 40 MG TABLET.DR. PO SCH (06:26)
[2022-02-28 07:00] VITALS: BP 145/79
[2022-02-28] MEDS: IPRATRPIUM/ALBUTEROL 0.5/2.5MG 3 ML NEBU. NEB SCH ×4 (08:03→20:30)
--- NOTE | 2022-02-28 08:44 | PDOC ---
Provider Note Date of Service: DATE: 02/28/22 TIME: 08:43 Provider Note states she finally seems to be feeling better- vss, exanm same, vq was good- will go to po meds, pulm consult as i thought she saw ku but she sees dr chua- maybe home 03/01 Justifications for Admission Other Justification MARLA MARTINEZ MD Feb 28, 2022 08:44
[2022-02-28] MEDS: CHOLECALCIFEROL (VITAMIN D3) 1,000 UNIT TABLET PO SCH (08:54)
[2022-02-28] MEDS: tiZANidine 4 MG TABLET. PO SCH ×2 (08:55→20:54)
[2022-02-28] MEDS: hydroCHLOROthiazide 12.5 MG TABLET PO SCH (08:55)
[2022-02-28] MEDS: LACTOBACILLUS RHAMNOSUS GG 1 CAPSULE. PO SCH ×2 (08:55→20:54)
[2022-02-28] MEDS: LOSARTAN POTASSIUM 50 MG TABLET. PO SCH (08:59)
[2022-02-28] MEDS: GABAPENTIN 300 MG CAPSULE. PO SCH ×3 (08:59→20:54)
[2022-02-28] MEDS: POLYETHYLENE GLYCOL 3350 17 GM PACKET. PO SCH (09:00)
[2022-02-28] MEDS: predniSONE 20 MG TABLET PO SCH (09:13)
[2022-02-28] MEDS: oxyCODONE/APAP 10/325 1 TAB TABLET PO PRN ×2 (09:14→16:09)
[2022-02-28] MEDS: ALPRAZolam 0.5 MG TABLET PO SCH ×2 (09:14→20:54)
[2022-02-28] MEDS: CEFDINIR 300 MG CAPSULE PO SCH ×2 (09:14→20:54)
[2022-02-28 11:00] VITALS: BP 144/70
[2022-02-28 15:00] VITALS: BP 124/83
--- NOTE | 2022-02-28 15:26 | PDOC ---
PULMONARY PROGRESS NOTES DATE: 02/28/22 TIME: 15:25 Vitals Vital Signs Date Time Temp Pulse Resp B/P (MAP) Pulse Ox O2 Delivery O2 Flow Rate FiO2 02/28/22 12:40 Nasal Cannula 3.0 02/28/22 11:00 97.8 88 19 144/70 (94) 95 97.8 General: Alert, No acute distress Lungs: Clear, Wheezing Cardiovascular: S1, S2 Abdomen: Soft, Non-tender Extremities: No Edema Medications Active Scripts Medications Dose Route/Sig Max Daily Dose Days Date Category Dose Instructions Advair 100-50 Diskus (Fluticasone/Salmeterol) 1 Each Disk.w.dev 1 Puff IH BID 09/26/21 Reported Albuterol Sulfate Neb Soln (Albuterol Sulfate) 0.63 Mg/3 Ml Vial.neb 1 Vial NEB TID 09/26/21 Reported Miralax (Polyethylene Glycol 3350) 17 Gm Powd.pack 1 Packet PO DAILY 2 06/28/21 Reported dissolve in water Prilosec Otc (Omeprazole Magnesium) 20 Mg Tablet.dr 10 Mg PO DAILY 01/25/20 Reported Vitamin D3 (Cholecalciferol (Vitamin D3)) 250 Mcg Tablet 500 Mcg PO DAILY 01/25/20 Reported Percocet 10-325 Mg Tablet (Oxycodone/Acetaminophen) 1 Each Tablet 1.5 Tab PO PRN Q8HRS PRN MDD 4 Tablet(s) 5 01/25/20 Reported Percocet 10-325 Mg Tablet (Oxycodone/Acetaminophen) 1 Each Tablet 1 Tab PO PRN Q6HRS PRN 01/25/20 Reported Losartan-Hctz 50-12.5 Mg Tab (Losartan/Hydrochlorothiazide) 1 Each Tablet 1 Tab PO DAILY 01/25/20 Reported Gabapentin 600 Mg Tablet 600 Mg PO TID 01/25/20 Reported Xanax (Alprazolam) 0.5 Mg Tablet 1 Tab PO BID 01/25/20 Reported Tizanidine Hcl 4 Mg Tablet 1 Tab PO BID 01/25/20 Reported Mirapex (Pramipexole Di-Hcl) 0.25 Mg Tablet 0.5 Mg PO DAILY 1900 01/25/20 Reported Impression . Full consult dictated Acute exacerbation of COPD Possible pneumonia Concur with current medical management Possible discharge 03/01 JOSE BARRETT MD Feb 28, 2022 15:26
[2022-02-28] MEDS: PRAMIPEXOLE 0.25 MG TABLET. PO SCH (16:11)
[2022-02-28 19:30] VITALS: BP 144/79
--- NOTE | 2022-02-28 21:19 | CONS ---
DATE OF CONSULTATION: 02/28/2022 ATTENDING PHYSICIAN: Ziyad Aguilar MD CONSULTING PHYSICIAN: Patricia Salgado MD REASON FOR CONSULTATION: The patient is seen in pulmonary consultation at the request of Dr. Aguilar for continued dyspnea, COPD exacerbation. HISTORY OF PRESENT ILLNESS: The patient is a 76-year-old that normally uses oxygen at home, COPD, quit tobacco approximately 2-3 weeks prior to admission. She was admitted with increasing shortness of breath, COPD exacerbation and possible pneumonia. The patient upon admission had an x-ray, which revealed a basilar airspace disease. She continues to be short of breath, unable to walk from bed to bathroom without getting dizzy and tachycardia. Over the last 24 hours, she is improving. I was asked to see her in consultation. PAST MEDICAL HISTORY: Otherwise remarkable for COPD, tobacco dependent, spinal osteoarthritis. She has had spinal implant. She is on chronic opiate. SOCIAL HISTORY: She quit tobacco approximately 3 weeks ago prior to admission, has a longstanding history of tobacco use. FAMILY HISTORY: Noncontributory. REVIEW OF SYSTEMS: As indicated above, otherwise other systems were reviewed and negative. CURRENT MEDICATIONS: List was reviewed. PHYSICAL EXAMINATION: VITAL SIGNS: Stable. O2 saturation was greater than 92%, currently on 2 liters. HEENT: Eyes: The sclerae were nonicteric. NECK: Jugular venous distention was not elevated. No lymphadenopathy. CHEST: Full expansion. LUNGS: Poor air flow with expiratory wheeze, prolonged expiratory phase. CARDIOVASCULAR: Regular rate and rhythm with S1, S2, no S3. ABDOMEN: Soft. EXTREMITIES: No clubbing, cyanosis, or pedal edema. LABORATORY DATA: Reviewed. White count was normal, hemoglobin and hematocrit were noted. Electrolytes were noted. Serology for SARS-CoV-2 was negative. Urine Legionella antigen negative. Influenza was negative. DIAGNOSTIC TESTING: CT scan was reviewed. No unmatched perfusion defects. CT from 01/09/2022 revealed severe emphysema. IMPRESSION: 1. Acute on chronic hypoxemic respiratory failure, multifactorial. 2. Pneumonia, gram-negative. 3. Acute exacerbation of chronic obstructive pulmonary disease. 4. Tobacco dependent. PLAN: It appears the patient is slowly improving, she has not been able to discharge as a consequence of severe shortness of breath, moving from bed to the bathroom with associated dizziness and tachycardia. With that being said, it appears that she is improving. She may be able to discharge in the morning. Follow up in the office once discharged. ELBA DR: Carine TID: [id number]
[2022-02-28 23:42] VITALS: BP 122/62
[2022-03-01 03:00] VITALS: BP 147/73
[2022-03-01] MEDS: ALBUTEROL SULFATE 2.5 MG/3 ML NEBU. NEB PRN (03:00)
[2022-03-01 07:00] VITALS: BP 145/77
[2022-03-01] MEDS: IPRATRPIUM/ALBUTEROL 0.5/2.5MG 3 ML NEBU. NEB SCH ×6 (07:17→23:35)
[2022-03-01] MEDS: hydroCHLOROthiazide 12.5 MG TABLET PO SCH (08:59)
[2022-03-01] MEDS: CEFDINIR 300 MG CAPSULE PO SCH ×2 (08:59→20:56)
[2022-03-01] MEDS: tiZANidine 4 MG TABLET. PO SCH ×2 (08:59→20:56)
[2022-03-01] MEDS: ALPRAZolam 0.5 MG TABLET PO SCH ×2 (08:59→20:56)
[2022-03-01] MEDS: LOSARTAN POTASSIUM 50 MG TABLET. PO SCH (08:59)
[2022-03-01] MEDS: predniSONE 20 MG TABLET PO SCH (09:00)
[2022-03-01] MEDS: GABAPENTIN 300 MG CAPSULE. PO SCH ×3 (09:00→20:56)
[2022-03-01] MEDS: POLYETHYLENE GLYCOL 3350 17 GM PACKET. PO SCH (09:00)
[2022-03-01] MEDS: LACTOBACILLUS RHAMNOSUS GG 1 CAPSULE. PO SCH ×2 (09:00→20:56)
[2022-03-01] MEDS: PANTOPRAZOLE 40 MG TABLET.DR. PO SCH (09:00)
[2022-03-01] MEDS: CHOLECALCIFEROL (VITAMIN D3) 1,000 UNIT TABLET PO SCH (09:00)
[2022-03-01] MEDS: oxyCODONE/APAP 10/325 1 TAB TABLET PO PRN ×3 (09:10→21:50)
[2022-03-01 11:00] VITALS: BP 121/82
--- NOTE | 2022-03-01 11:39 | PDOC ---
PULMONARY PROGRESS NOTES DATE: 03/01/22 TIME: 11:36 Subjective Patient not feeling well. Patient has diffuse wheezing Vitals Vital Signs Date Time Temp Pulse Resp B/P (MAP) Pulse Ox O2 Delivery O2 Flow Rate FiO2 03/01/22 09:10 20 93 Nasal Cannula 3.0 03/01/22 08:59 79 145/77 03/01/22 07:00 97.7 97.7 General: Alert, Mild Distress Lungs: Wheezing (Bilateral diffuse wheezing) Cardiovascular: S1, S2 Abdomen: Soft, Non-tender Extremities: No Edema Skin: Warm Medications Active Scripts Medications Dose Route/Sig Max Daily Dose Days Date Category Dose Instructions Advair 100-50 Diskus (Fluticasone/Salmeterol) 1 Each Disk.w.dev 1 Puff IH BID 09/26/21 Reported Albuterol Sulfate Neb Soln (Albuterol Sulfate) 0.63 Mg/3 Ml Vial.neb 1 Vial NEB TID 09/26/21 Reported Miralax (Polyethylene Glycol 3350) 17 Gm Powd.pack 1 Packet PO DAILY 2 06/28/21 Reported dissolve in water Prilosec Otc (Omeprazole Magnesium) 20 Mg Tablet.dr 10 Mg PO DAILY 01/25/20 Reported Vitamin D3 (Cholecalciferol (Vitamin D3)) 250 Mcg Tablet 500 Mcg PO DAILY 01/25/20 Reported Percocet 10-325 Mg Tablet (Oxycodone/Acetaminophen) 1 Each Tablet 1.5 Tab PO PRN Q8HRS PRN MDD 4 Tablet(s) 5 01/25/20 Reported Percocet 10-325 Mg Tablet (Oxycodone/Acetaminophen) 1 Each Tablet 1 Tab PO PRN Q6HRS PRN 01/25/20 Reported Losartan-Hctz 50-12.5 Mg Tab (Losartan/Hydrochlorothiazide) 1 Each Tablet 1 Tab PO DAILY 01/25/20 Reported Gabapentin 600 Mg Tablet 600 Mg PO TID 01/25/20 Reported Xanax (Alprazolam) 0.5 Mg Tablet 1 Tab PO BID 01/25/20 Reported Tizanidine Hcl 4 Mg Tablet 1 Tab PO BID 01/25/20 Reported Mirapex (Pramipexole Di-Hcl) 0.25 Mg Tablet 0.5 Mg PO DAILY 1900 01/25/20 Reported Comments Abnormal chest x-ray dated 02/26/2022 Small right pleural effusion, questionable mild CHF Impression . 1. Acute on chronic hypoxemic respiratory failure, multifactorial. 2. Possible pneumonia, gram-negative. 3. Acute exacerbation of chronic obstructive pulmonary disease./Diffuse broncho spasm 4. Tobacco dependent. 5. On home oxygen chronically at 2.5 L Plan . 1. Patient has diffuse wheezing today. Will need maximization of bronchodilator therapy. 2. Increase duo nebs to every 4 hours. Pulmicort twice daily and continue with oral prednisone. 3. Patient is on home oxygen at 2.5 L. Current oxygen requirement stable. 4. Repeat chest x-ray to rule out any CHF. 5. Discussed with RN. Will hold discharge today. AN PRIETO MD Mar 01, 2022 11:39
[2022-03-01] MEDS ORDERED: FUROSEMIDE 20 MG/2 ML VIAL. IVP ONE (11:45)
[2022-03-01] MEDS: BUDESONIDE 0.5 MG/2 ML NEBU. NEB SCH ×2 (13:00→20:42)
[2022-03-01 15:00] VITALS: BP 129/79
--- NOTE | 2022-03-01 15:58 | RAD ---
XR CHEST 1V History: Effusion. Comparison: 03/08/2022. CT chest 12/28/2021. Technique: Portable AP radiograph of the chest. Findings: The lungs are hyperinflated with flattening of the diaphragm. There is trace left greater than right basilar opacities including possible trace effusions. No pneumothorax. The cardiomediastinal silhouet te is enlarged. There is a large hiatus hernia. Redemonstrated mid and upper thoracic spinal stimulat or devices. Calcification of the aortic arch. Impression: 1. Left greater than right basilar opacities may represent atelectasis or infiltrate and possible tr brigette pleural effusions. 2. Redemonstrated large hiatal hernia. Electronically signed by: Niranjan Saini MD (03/01/2022 3:55 PM) [id number]
[2022-03-01] MEDS: PRAMIPEXOLE 0.25 MG TABLET. PO SCH (18:29)
[2022-03-01 19:00] VITALS: BP 133/75
[2022-03-01 22:53] VITALS: BP 124/68
--- NOTE | 2022-03-01 23:37 | NUR ---
PT VERY SOMNOLENT AND C/O SEVERE DIZZINESS. RN NOTIFIED.
[2022-03-02 02:49] VITALS: BP 126/63
[2022-03-02] MEDS: IPRATRPIUM/ALBUTEROL 0.5/2.5MG 3 ML NEBU. NEB SCH ×6 (05:07→23:25)
[2022-03-02 07:00] VITALS: BP 146/77
[2022-03-02] MEDS: BUDESONIDE 0.5 MG/2 ML NEBU. NEB SCH ×2 (07:30→20:00)
--- NOTE | 2022-03-02 08:13 | PDOC ---
Provider Note Date of Service: DATE: 03/02/22 TIME: 08:12 Provider Note vss, feels same- cxr looks same, no new labs- will add trial of daliresp, see what dr tilley thinks of this med as i rarely have used it Justifications for Admission Other Justification MARLA MARTINEZ MD Mar 02, 2022 08:13
[2022-03-02] MEDS: POLYETHYLENE GLYCOL 3350 17 GM PACKET. PO SCH (09:00)
[2022-03-02] MEDS: ROFLUMILAST 500 MCG TABLET. PO SCH (09:08)
[2022-03-02] MEDS: CEFDINIR 300 MG CAPSULE PO SCH ×2 (09:10→21:38)
[2022-03-02] MEDS: ALPRAZolam 0.5 MG TABLET PO SCH ×2 (09:10→21:38)
[2022-03-02] MEDS: predniSONE 20 MG TABLET PO SCH (09:11)
[2022-03-02] MEDS: GABAPENTIN 300 MG CAPSULE. PO SCH ×3 (09:11→21:38)
[2022-03-02] MEDS: oxyCODONE/APAP 10/325 1 TAB TABLET PO PRN ×2 (09:11→17:19)
[2022-03-02] MEDS: tiZANidine 4 MG TABLET. PO SCH ×2 (09:16→21:38)
[2022-03-02] MEDS: CHOLECALCIFEROL (VITAMIN D3) 1,000 UNIT TABLET PO SCH (09:16)
[2022-03-02] MEDS: LACTOBACILLUS RHAMNOSUS GG 1 CAPSULE. PO SCH ×2 (09:17→21:38)
[2022-03-02] MEDS: LOSARTAN POTASSIUM 50 MG TABLET. PO SCH (09:17)
[2022-03-02] MEDS: hydroCHLOROthiazide 12.5 MG TABLET PO SCH (09:17)
[2022-03-02] MEDS: PANTOPRAZOLE 40 MG TABLET.DR. PO SCH (09:17)
[2022-03-02 11:00] VITALS: BP 104/76
[2022-03-02] MEDS ORDERED: guaiFENesin DM 600/30MG 1 TAB TAB.ER.12H PO SCH (11:00)
--- NOTE | 2022-03-02 11:24 | PDOC ---
PULMONARY PROGRESS NOTES DATE: 03/02/22 TIME: 11:21 Subjective Patient not feeling well. Patient has diffuse wheezing Vitals Vital Signs Date Time Temp Pulse Resp B/P (MAP) Pulse Ox O2 Delivery O2 Flow Rate FiO2 03/02/22 09:17 85 146/77 03/02/22 09:11 18 Nasal Cannula 3.0 03/02/22 07:34 97 03/02/22 07:00 97.7 97.7 General: Alert, Mild Distress Lungs: Wheezing (Bilateral diffuse wheezing) Cardiovascular: S1, S2 Abdomen: Soft, Non-tender Extremities: No Edema Skin: Warm Medications Active Scripts Medications Dose Route/Sig Max Daily Dose Days Date Category Dose Instructions Advair 100-50 Diskus (Fluticasone/Salmeterol) 1 Each Disk.w.dev 1 Puff IH BID 09/26/21 Reported Albuterol Sulfate Neb Soln (Albuterol Sulfate) 0.63 Mg/3 Ml Vial.neb 1 Vial NEB TID 09/26/21 Reported Miralax (Polyethylene Glycol 3350) 17 Gm Powd.pack 1 Packet PO DAILY 2 06/28/21 Reported dissolve in water Prilosec Otc (Omeprazole Magnesium) 20 Mg Tablet.dr 10 Mg PO DAILY 01/25/20 Reported Vitamin D3 (Cholecalciferol (Vitamin D3)) 250 Mcg Tablet 500 Mcg PO DAILY 01/25/20 Reported Percocet 10-325 Mg Tablet (Oxycodone/Acetaminophen) 1 Each Tablet 1.5 Tab PO PRN Q8HRS PRN MDD 4 Tablet(s) 5 01/25/20 Reported Percocet 10-325 Mg Tablet (Oxycodone/Acetaminophen) 1 Each Tablet 1 Tab PO PRN Q6HRS PRN 01/25/20 Reported Losartan-Hctz 50-12.5 Mg Tab (Losartan/Hydrochlorothiazide) 1 Each Tablet 1 Tab PO DAILY 01/25/20 Reported Gabapentin 600 Mg Tablet 600 Mg PO TID 01/25/20 Reported Xanax (Alprazolam) 0.5 Mg Tablet 1 Tab PO BID 01/25/20 Reported Tizanidine Hcl 4 Mg Tablet 1 Tab PO BID 01/25/20 Reported Mirapex (Pramipexole Di-Hcl) 0.25 Mg Tablet 0.5 Mg PO DAILY 1900 3/7/20 Reported Comments Chest x-ray reviewed dated 03/01/2022. Questionable mildly prominent interstitial markings with tiny basal effusions Abnormal chest x-ray dated 02/26/2022 Small right pleural effusion, questionable mild CHF Impression . 1. Acute on chronic hypoxemic respiratory failure, multifactorial. Persistent bronchospasm. 2. Possible pneumonia, gram-negative. 3. Acute exacerbation of chronic obstructive pulmonary disease./Diffuse bronchospasm 4. Tobacco dependent. 5. On home oxygen chronically at 2.5 L 6. Question component of mild CHF contributing to bronchospasm. Plan . 1. Patient has persistent diffuse wheezing . Duo nebs increased to every 4 hours since 03/01, Pulmicort added 2. Discontinue oral prednisone, start IV Solu-Medrol. Okay with addition of Daliresp today. May not help with acute exacerbation 3. Patient is on home oxygen at 2.5 L. Current oxygen requirement stable. 4. Repeat chest x-ray reviewed. Tiny effusions questionable mild prominent interstitial markings. Will give 40 of Lasix today. Check BNP 5. Discussed with RN. AN PRIETO MD Mar 02, 2022 11:24
[2022-03-02] MEDS: methylPREDNISolone SOD SUCC PF 40 MG/ML VIAL. IV SCH ×3 (12:02→23:42)
[2022-03-02] MEDS ORDERED: FUROSEMIDE 40 MG/4 ML VIAL. IVP ONE (12:15)
[2022-03-02 15:00] VITALS: BP 127/70
[2022-03-02] MEDS: PRAMIPEXOLE 0.25 MG TABLET. PO SCH (17:19)
[2022-03-02 19:00] VITALS: BP 119/78
[2022-03-02 23:00] VITALS: BP 112/69
[2022-03-03 03:00] VITALS: BP 123/66
[2022-03-03] MEDS: IPRATRPIUM/ALBUTEROL 0.5/2.5MG 3 ML NEBU. NEB SCH ×5 (03:19→20:31)
[2022-03-03] MEDS: methylPREDNISolone SOD SUCC PF 40 MG/ML VIAL. IV SCH ×4 (05:49→23:57)
[2022-03-03 07:00] VITALS: BP 134/76
--- NOTE | 2022-03-03 08:02 | PDOC ---
Provider Note Date of Service: DATE: 03/03/22 TIME: 08:01 Provider Note feels same, vss, exam same- back on iv steroid, added daliresp , follow Justifications for Admission Other Justification MARLA MARTINEZ MD Mar 03, 2022 08:02
[2022-03-03] MEDS: BUDESONIDE 0.5 MG/2 ML NEBU. NEB SCH ×2 (08:06→20:31)
--- NOTE | 2022-03-03 08:30 | PDOC ---
Provider Note Date of Service: DATE: 03/03/22 TIME: 08:29 Provider Note last echo 07/10 was good, will repeat re persistant dyspnea, but doubt cardiac an issue Justifications for Admission Other Justification MARLA MARTINEZ MD Mar 03, 2022 08:30
[2022-03-03] MEDS: POLYETHYLENE GLYCOL 3350 17 GM PACKET. PO SCH (09:00)
[2022-03-03] MEDS: ROFLUMILAST 500 MCG TABLET. PO SCH (09:43)
[2022-03-03] MEDS: CEFDINIR 300 MG CAPSULE PO SCH ×2 (09:45→20:33)
[2022-03-03] MEDS: GABAPENTIN 300 MG CAPSULE. PO SCH ×3 (09:46→20:34)
[2022-03-03] MEDS: tiZANidine 4 MG TABLET. PO SCH ×2 (09:46→20:33)
[2022-03-03] MEDS: LACTOBACILLUS RHAMNOSUS GG 1 CAPSULE. PO SCH ×2 (09:46→20:34)
[2022-03-03] MEDS: hydroCHLOROthiazide 12.5 MG TABLET PO SCH (09:46)
[2022-03-03] MEDS: ALPRAZolam 0.5 MG TABLET PO SCH ×2 (09:46→20:33)
[2022-03-03] MEDS: CHOLECALCIFEROL (VITAMIN D3) 1,000 UNIT TABLET PO SCH (09:46)
[2022-03-03] MEDS: PANTOPRAZOLE 40 MG TABLET.DR. PO SCH (09:47)
[2022-03-03] MEDS: oxyCODONE/APAP 10/325 1 TAB TABLET PO PRN ×2 (09:47→20:43)
[2022-03-03] MEDS: LOSARTAN POTASSIUM 50 MG TABLET. PO SCH (09:47)
[2022-03-03] MEDS ORDERED: MAGNESIUM SULFATE 2GM 50 ML IV ONE (10:30)
[2022-03-03 11:00] VITALS: BP 112/64
--- NOTE | 2022-03-03 11:49 | PDOC ---
PULMONARY PROGRESS NOTES DATE: 03/03/22 TIME: 11:46 Subjective Patient still not clinically better. Still having wheezing. Vitals Vital Signs Date Time Temp Pulse Resp B/P (MAP) Pulse Ox O2 Delivery O2 Flow Rate FiO2 03/03/22 10:17 18 Nasal Cannula 2.5 03/03/22 09:47 76 134/76 03/03/22 08:10 96 03/03/22 07:00 98.3 98.3 General: Alert, No acute distress, Mild Distress Lungs: Wheezing (Bilateral diffuse wheezing) Cardiovascular: S1, S2 Abdomen: Soft, Non-tender Extremities: No Edema Skin: Warm Labs Laboratory Tests Test 03/02/22 11:45 XV-Who-D-Type Natriuretic Peptide 299 pg/mL (0-449) Medications Active Scripts Medications Dose Route/Sig Max Daily Dose Days Date Category Dose Instructions Advair 100-50 Diskus (Fluticasone/Salmeterol) 1 Each Disk.w.dev 1 Puff IH BID 09/26/21 Reported Albuterol Sulfate Neb Soln (Albuterol Sulfate) 0.63 Mg/3 Ml Vial.neb 1 Vial NEB TID 09/26/21 Reported Miralax (Polyethylene Glycol 3350) 17 Gm Powd.pack 1 Packet PO DAILY 2 06/28/21 Reported dissolve in water Prilosec Otc (Omeprazole Magnesium) 20 Mg Tablet.dr 10 Mg PO DAILY 01/25/20 Reported Vitamin D3 (Cholecalciferol (Vitamin D3)) 250 Mcg Tablet 500 Mcg PO DAILY 01/25/20 Reported Percocet 10-325 Mg Tablet (Oxycodone/Acetaminophen) 1 Each Tablet 1.5 Tab PO PRN Q8HRS PRN MDD 4 Tablet(s) 5 01/25/20 Reported Percocet 10-325 Mg Tablet (Oxycodone/Acetaminophen) 1 Each Tablet 1 Tab PO PRN Q6HRS PRN 01/25/20 Reported Losartan-Hctz 50-12.5 Mg Tab (Losartan/Hydrochlorothiazide) 1 Each Tablet 1 Tab PO DAILY 01/25/20 Reported Gabapentin 600 Mg Tablet 600 Mg PO TID 01/25/20 Reported Xanax (Alprazolam) 0.5 Mg Tablet 1 Tab PO BID 01/25/20 Reported Tizanidine Hcl 4 Mg Tablet 1 Tab PO BID 01/25/20 Reported Mirapex (Pramipexole Di-Hcl) 0.25 Mg Tablet 0.5 Mg PO DAILY 1900 01/25/20 Reported Comments Chest x-ray reviewed dated 03/01/2022. Questionable mildly prominent interstitial markings with tiny basal effusions Abnormal chest x-ray dated 02/26/2022 Small right pleural effusion, questionable mild CHF Impression . 1. Acute on chronic hypoxemic respiratory failure, multifactorial. Persistent bronchospasm. 2. Possible pneumonia, gram-negative. 3. Acute exacerbation of chronic obstructive pulmonary disease./Diffuse bronchospasm 4. Tobacco dependent. 5. On home oxygen chronically at 2.5 L 6. Question component of mild CHF contributing to bronchospasm. Previous echo in 2020 was with normal ejection fraction and grade 1 diastolic dysfunction. Plan . 1. Patient has persistent diffuse wheezing . Duo nebs increased to every 4 hours since 03/01, Pulmicort added since . We will try IV magnesium today. 2. On IV Solu-Medrol. Okay with addition of Daliresp May not help with acute exacerbation 3. Patient is on home oxygen at 2.5 L. Current oxygen requirement stable. 4. Repeat chest x-ray reviewed. Tiny effusions questionable mild prominent interstitial markings. Status post Lasix. Mild clinical improvement last evening. Normal BNP 5. We will obtain a noncontrast CT chest rule out any interstitial edema. 6. We will repeat an echocardiogram. 7. IV magnesium today. discussed in detail with the patient and RN. Explained to her that sometimes bronchospasms can take days before improvement. She likely has adult onset reactive airway disease. AN PRIETO MD Mar 03, 2022 11:49
[2022-03-03 15:00] VITALS: BP 125/81
--- NOTE | 2022-03-03 15:35 | RAD ---
CT THORAX WO History: Short of air, question CHF. Comparison: CT chest 12/28/2021 Technique: Noncontrast CT of the chest. Findings: Assessment is limited by lack of IV contrast. Cardiovascular: Moderate aortic calcification without aneurysm. Enlarged main pulmonary arteries sugg est pulmonary arterial hypertension. Moderate coronary artery calcification. Mediastinum and nya: Thyroid is unremarkable. No mediastinal adenopathy. Patulous esophagus containi ng dependent debris and large hiatal hernia with gastric volvulus. Airways, lungs and pleura: The central airways are patent. There are mild emphysematous changes. Left greater than right basilar platelike atelectasis. No interstitial thickening or effusions. No pneumo thorax. Upper abdomen: Right renal atrophy. Partially visualized infrarenal aortic aneurysm. Osseous structures and soft tissues: Incompletely healed chronic left lower rib 8-10 fractures. Degen erative changes of the shoulders. Spinal stimulator device leads project in the posterior thoracic ep idural space. Impression: 1. Left greater than right basilar platelike atelectasis. No effusion. No evidence of pulmonary cristy a. 2. Large hiatal hernia with gastric volvulus and patulous thoracic esophagus. 3. Mild emphysematous change and enlargement of the pulmonary arteries consistent with pulmonary hyp ertension. 4. Incompletely healed chronic left eighth, ninth and 10th rib fractures. ------ Exposure: One or more of the following individualized dose reduction techniques were utilized for thi s examination: 1. Automated exposure control 2. Adjustment of the mA and/or kV according to patient size 3. Use of iterative reconstruction technique. Electronically signed by: Niranjan Saini MD (03/03/2022 3:33 PM) [id number]
[2022-03-03] MEDS: PRAMIPEXOLE 0.25 MG TABLET. PO SCH (17:02)
[2022-03-03 19:00] VITALS: BP 147/78
[2022-03-03 23:00] VITALS: BP 113/62
[2022-03-04 03:00] VITALS: BP 121/71
[2022-03-04] MEDS: IPRATRPIUM/ALBUTEROL 0.5/2.5MG 3 ML NEBU. NEB SCH ×6 (04:50→20:30)
[2022-03-04] MEDS: PANTOPRAZOLE 40 MG TABLET.DR. PO SCH (05:50)
[2022-03-04] MEDS: methylPREDNISolone SOD SUCC PF 40 MG/ML VIAL. IV SCH ×3 (05:50→17:30)
[2022-03-04 07:00] VITALS: BP 171/81
[2022-03-04] MEDS: BUDESONIDE 0.5 MG/2 ML NEBU. NEB SCH ×2 (08:00→20:31)
--- NOTE | 2022-03-04 08:20 | PDOC ---
Provider Note Date of Service: DATE: 03/04/22 TIME: 08:17 Provider Note will consult gi re poss. egd, surgeon re gastric volvulus and poss need for HH surgery,dc cefdinir and reduce steroids also, d/w patient Justifications for Admission Other Justification MARLA MARTINEZ MD Mar 04, 2022 08:20
--- NOTE | 2022-03-04 08:49 | PDOC ---
PULMONARY PROGRESS NOTES DATE: 03/04/22 TIME: 08:46 Subjective Patient still not clinically better. Still having wheezing. Vitals Vital Signs Date Time Temp Pulse Resp B/P (MAP) Pulse Ox O2 Delivery O2 Flow Rate FiO2 03/04/22 07:16 95 Nasal Cannula 2.0 03/04/22 07:00 97.6 76 18 171/81 (111) 97.6 General: Alert, No acute distress, Mild Distress Lungs: Wheezing (Bilateral diffuse wheezing) Cardiovascular: S1, S2 Abdomen: Soft, Non-tender Extremities: No Edema Skin: Warm Labs Laboratory Tests Test 03/02/22 11:45 HS-[id number]-V-Type Natriuretic Peptide 299 pg/mL (0-449) Medications Active Scripts Medications Dose Route/Sig Max Daily Dose Days Date Category Dose Instructions Advair 100-50 Diskus (Fluticasone/Salmeterol) 1 Each Disk.w.dev 1 Puff IH BID 09/26/21 Reported Albuterol Sulfate Neb Soln (Albuterol Sulfate) 0.63 Mg/3 Ml Vial.neb 1 Vial NEB TID 09/26/21 Reported Miralax (Polyethylene Glycol 3350) 17 Gm Powd.pack 1 Packet PO DAILY 2 06/28/21 Reported dissolve in water Prilosec Otc (Omeprazole Magnesium) 20 Mg Tablet.dr 10 Mg PO DAILY 01/25/20 Reported Vitamin D3 (Cholecalciferol (Vitamin D3)) 250 Mcg Tablet 500 Mcg PO DAILY 01/25/20 Reported Percocet 10-325 Mg Tablet (Oxycodone/Acetaminophen) 1 Each Tablet 1.5 Tab PO PRN Q8HRS PRN MDD 4 Tablet(s) 5 01/25/20 Reported Percocet 10-325 Mg Tablet (Oxycodone/Acetaminophen) 1 Each Tablet 1 Tab PO PRN Q6HRS PRN 01/25/20 Reported Losartan-Hctz 50-12.5 Mg Tab (Losartan/Hydrochlorothiazide) 1 Each Tablet 1 Tab PO DAILY 01/25/20 Reported Gabapentin 600 Mg Tablet 600 Mg PO TID 01/25/20 Reported Xanax (Alprazolam) 0.5 Mg Tablet 1 Tab PO BID 01/25/20 Reported Tizanidine Hcl 4 Mg Tablet 1 Tab PO BID 01/25/20 Reported Mirapex (Pramipexole Di-Hcl) 0.25 Mg Tablet 0.5 Mg PO DAILY 189901/25/20 Reported Comments Chest x-ray reviewed dated 03/01/2022. Questionable mildly prominent interstitial markings with tiny basal effusions Abnormal chest x-ray dated 02/26/2022 Small right pleural effusion, questionable mild CHF Impression . 1. Acute on chronic hypoxemic respiratory failure, multifactorial. Persistent bronchospasm despite maximum bronchodilators and steroids. She also received 1 dose of magnesium sulfate. CT of the chest showing large hiatal hernia and gastric volvulus. This is likely contributing to patient's bronchospasm with acid aspiration. 2. Possible pneumonia, gram-negative. CT chest without any focal consolidation 3. Acute exacerbation of chronic obstructive pulmonary disease./Diffuse bronchospasm 4. Tobacco dependent. 5. On home oxygen chronically at 2.5 L 6. No evidence of CHF contributing to bronchospasm. Previous echo in 2020 was with normal ejection fraction and grade 1 diastolic dysfunction. Plan . 1. Patient has persistent diffuse wheezing . Duo nebs increased to every 4 hours since 03/01, Pulmicort added since 412. . After review of the CT chest with large hiatal hernia and gastric volvulus, bronchospasm is likely contributed by ongoing acid aspiration. Discussed with Dr. Aguilar. Will consult GI as well as general surgery 2. On IV Solu-Medrol. 3. Patient is on home oxygen at 2.5 L. Current oxygen requirement stable. 4. Add PPI. All dietary instructions given to the patient. She will eat her supper 3 to 4 hours before going to bed. She will always sustain upright position while eating. 5. CT chest reviewed. 6. We will repeat an echocardiogram. 7. Discussed with Dr. Aguilar. AN PRIETO MD Mar 04, 2022 08:49
[2022-03-04] MEDS: POLYETHYLENE GLYCOL 3350 17 GM PACKET. PO SCH (09:00)
--- NOTE | 2022-03-04 09:50 | CARD ---
MR#: [id number] Date of Study: 03/03/2022 Ordering Physician: MARLA MARTINEZ, Referring Physician: Delfina LINDSEY: Clarke Velez [facility] APPROVED REPORT EXAM: Two-dimensional and M-mode echocardiogram with Doppler and color Doppler. Other Information Quality : AverageHR: 91bpm Rhythm : NSRTechnically limited study due to body habitus. INDICATION Dyspnea RISK FACTORS COPD S/P fall 2D DIMENSIONS Left Atrium(2D)3.0 (1.6-4.0cm)IVSd1.1 (0.7-1.1cm) Aortic Root(2D)3.6 (2.0-3.7cm)LVDd4.2 (3.9-5.9cm) LVOT Diameter1.9 (1.8-2.4cm)PWd1.1 (0.7-1.1cm) LA Gflemy67 (18-58mL)LVDs2.2 (2.5-4.0cm) FS (%) 46.9 %SV62.7 ml LVEF(%)78.7 (>50%) Aortic Valve AoV Peak Hossein.139.3cm/sAoV VTI25.3cm AO Peak GR.7.8mmHgLVOT Peak Hossein.73.3cm/s LVOT VTI 10.56cmAO Mean GR.4mmHg JONEL (VMAX)1.77fo2RVW (VTI)1.25cm2 AI P 1/2 Lpdn985er Mitral Valve MV E Mqjemnwb64.3cm/sMV DECEL YUYW323df MV A Quhwrhid67.5cm/sMV REO89mt E/A Ratio1.1MVA (PHT)4.16cm2 TDI E/Lateral E'9.7E/Medial E'14.5 Pulmonary Valve PV Peak Mxpwdgpc133.7cm/sPV Peak Grad.4mmHg Tricuspid Valve TR P. Fvtawxbl683xn/sTR Peak Gr.20mmHg Pulmonary Vein S1 Ktyqkikt01.0cm/sD2 Kzkqwtke35.0cm/s LEFT VENTRICLE The left ventricle is normal size. There is normal left ventricular wall thickness. The left ventricu lar systolic function is normal and the ejection fraction is within normal range. EF 55% There is nor mal LV segmental wall motion. Tissue Doppler imaging reveals mild left ventricular diastolic dysfunct ion. No left ventricle thrombus noted on this study. There is no ventricular septal defect visualized . There is no left ventricular aneurysm. There is no mass noted in the left ventricle. RIGHT VENTRICLE The right ventricle is normal size. There is normal right ventricular wall thickness. The right ventr icular systolic function is normal. ATRIA The left atrium is moderately dilated. The right atrium size is normal. The interatrial septum is int act with no evidence for an atrial septal defect or patent foramen ovale as noted on 2-D or Doppler i maging. AORTIC VALVE The aortic valve is mildly sclerotic. Doppler and Color Flow revealed trace aortic regurgitation. The re is no significant aortic valvular stenosis. There is no aortic valvular vegetation. MITRAL VALVE The mitral valve is normal in structure and function. There is no evidence of mitral valve prolapse. There is no mitral valve stenosis. Doppler and Color-flow revealed trace mitral regurgitation. TRICUSPID VALVE The tricuspid valve is normal in structure and function. Doppler and Color Flow revealed trace to mil d tricuspid regurgitation. There is no tricuspid valve prolapse or vegetation. There is no tricuspid valve stenosis. PULMONIC VALVE The pulmonary valve is normal in structure and function. Doppler and Color Flow revealed no pulmonic valvular regurgitation. There is no pulmonic valvular stenosis. GREAT VESSELS The aortic root is normal in size. The ascending aorta is normal in size. The pulmonary artery is nor mal. The IVC is normal in size and collapses >50% with inspiration. PERICARDIAL EFFUSION There is no pleural effusion. There is no evidence of significant pericardial effusion. Critical Notification Critical Value: No <Conclusion> The left ventricular systolic function is normal and the ejection fraction is within normal range. EF 55% There is normal LV segmental wall motion. Signed by : Alexey Santos, Electronically Approved : 03/04/2022 09:49:32
--- NOTE | 2022-03-04 09:54 | PDOC2 ---
GI CONSULT Date of Service: DATE: 03/04/22 TIME: 09:54 Reason For Consult: gastric volvulus HPI: HPI: 76 y/o female admitted 02/22 w/ acute on chronic resp failure - possible pneumonia/AECOPD w/ persistent bronchospasm. CT chest (delayed due to contrast allergy) showed large hiatal hernia with g astric volvulus and patulous thoracic esophagus which is why we are asked to see. She often feels a "bubble" in lower neck/upper chest area and probably every time she eats, solids or liquids get caught in this region and often she coughs them out or they just come up a few minutes later - no vomiting. Symptoms ongoing for awhile. GERD not well-controlled w/ Prilosec BID. Stopped iron ~1 month ago. Has gained weight. No n/v, abd pain, diarrhea, constipation, hematochezia, or melena. EGD and colonoscopy for melena in 2016 - EGD unrevealing (no biopsies), colonoscopy w/ sigmoid diverticulosis and hyperplastic polyp. EGD 09/2021 for DARLING and increasing dyspepsia by Dr. Medina showed normal esophagus, large hiatal hernia w/ associated Jonatan lesions, patchy erythema in antrum (biopsy normal and negative for H. pylori), and normal duodenum (with normal random biopsies). No GB, liver, pancreas, or PUD history. H/o ischemic colitis. PMH: PMH: HTN, COPD, spinal stenosis, nephrolithiasis, cataracts hysterectomy, right hip surgery, left foot surgery, tonsillectomy, cataract extraction, pain pump FH: Family History: No pertinent hx Social History: Smoke: Quit (4 weeks ago) ALCOHOL: none Drugs: None ROS: GEN: Denies fevers, chills, sweats HEENT: Denies blurred vision, sore throat CV: Denies chest pain RESP: +SOA +cough GI: Per HPI : Denies hematuria, dysuria ENDO: +weight gain NEURO: Denies confusion, dizziness MSK: +weakness SKIN: Denies jaundice, pruritus Vitals: Vitals: Vital Signs Date Time Temp Pulse Resp B/P (MAP) Pulse Ox O2 Delivery O2 Flow Rate FiO2 03/04/22 08:30 Nasal Cannula 2.0 03/04/22 07:16 95 03/04/22 07:00 97.6 76 18 171/81 (073) 97.6 Allergies: Coded Allergies: Iodinated Contrast Media (Verified Adverse Reaction, Severe, SEIZURES, 02/22/22) Medications: Current Medications Medications (Trade) Dose Ordered Sig/Pedro Route PRN Reason Start Time Stop Time Status Last Admin Dose Admin Magnesium Sulfate 50 ml @ 25 mls/hr 1X ONCE IV 03/03/22 10:30 03/03/22 12:29 DC 03/03/22 11:46 Imaging: Imaging: Chest CT 03/03 Impression: 1. Left greater than right basilar platelike atelectasis. No effusion. No evidence of pulmonary edema. 2. Large hiatal hernia with gastric volvulus and patulous thoracic esophagus. 3. Mild emphysematous change and enlargement of the pulmonary arteries con sistent with pulmonary hypertension. 4. Incompletely healed chronic left eighth, ninth and 10th rib fractures. CXR 03/01 Impression: 1. Left greater than right basilar opacities may represent atelectasis or infiltrate and possible trace pleural effusions. 2. Redemonstrated large hiatal hernia.' VQ Scan 02/27 IMPRESSION: Normal VQ scan. Negative for pulmonary embolism. CXR 02/26 IMPRESSION: 1. Small right pleural effusion. 2. Mild basilar linear atelectasis without other infiltrates. 3. Large hiatus hernia. CXR 02/22 IMPRESSION: Mild right basilar patchy airspace disease, possibly subsegmental atelectasis. Nonspecific interstitial prominence, possibly chronic but could be related to mild edema. PE: GEN: takes a lot of effort to walk from one side of bed to the other w/ walker HEENT: Atraumatic, PERRL LUNGS: +wheezing, NC 2L HEART: RRR ABD: NABS, S/ND/NT EXTREMITY: No edema SKIN: No rashes, no jaundice NEURO/PSYCH: A & O 3 A/P: A/P: Acute on chronic resp failure Abnromal CT - large hiatal hernia/gastric volvulus - last EGD 09/2021 as above Dysphagia GERD - not good control w/ BID PPI CRC screen - last in 2015 Diverticulosis H/o ischemic colitis COVID negative -- Back off on diet - clears for now. Await surgery opinion. MARY GRACE IYER Mar 04, 2022 09:54
[2022-03-04] MEDS: CHOLECALCIFEROL (VITAMIN D3) 1,000 UNIT TABLET PO SCH (10:13)
[2022-03-04] MEDS: GABAPENTIN 300 MG CAPSULE. PO SCH ×3 (10:13→22:00)
[2022-03-04] MEDS: tiZANidine 4 MG TABLET. PO SCH ×2 (10:13→22:00)
[2022-03-04] MEDS: LOSARTAN POTASSIUM 50 MG TABLET. PO SCH (10:13)
[2022-03-04] MEDS: ALPRAZolam 0.5 MG TABLET PO SCH ×2 (10:13→22:00)
[2022-03-04] MEDS: hydroCHLOROthiazide 12.5 MG TABLET PO SCH (10:14)
[2022-03-04] MEDS: ROFLUMILAST 500 MCG TABLET. PO SCH (10:14)
[2022-03-04 11:00] VITALS: BP 127/76
--- NOTE | 2022-03-04 12:53 | NUR ---
SS following for discharge planning. SS reviewed pt chart and discussed with pt RN. Pt is currently requiring oxygen at two liters nasal canula. Pulmonology following. Pt on IV Solu-Medrol. Pt has home oxygen. GI and Surgery consulted. SS will continue to follow for discharge planning.
--- NOTE | 2022-03-04 13:13 | PDOC2 ---
CONSULT Date of Consult Date of Consult DATE: 03/04/22 TIME: 13:02 Reason for Consult Reason for Consult: HH, gastric volvulus Referring Physician Referring Physician: Dr Aguilar Identification/Chief Complaint Chief Complaint Respiratory distress Source Source: Chart review, Patient History of Present Illness Reason for Visit: Admitted with chronic respiratory issues, COPD, pneumonia, bronchospasm Reports quit smoking 6 weeks ago, she is on steroids HX of HH, EGD in 2020 showed HH Underwent Chest CT this admission, showing chronic pulmonary issues, HH, concern for gastric volvulus Denies vomiting, has been on a regular diet while in hospital. Does report a chronic bubbling sensation when eating, does sometime regurgitate food(seems more after evening meals) Past Medical History Cardiovascular: HTN Pulmonary: COPD Psych: Anxiety Musculoskeletal: low back pain, Osteoarthritis Past Surgical History Past Surgical History: Tonsillectomy, Hysterectomy Family History Family History: Other (noncontributory to current illness) Social History Quit (4 weeks ago) ALCOHOL: none Drugs: None Lives: with Family Current Medications Current Medications Current Medications Albuterol/ Ipratropium (Duoneb) 3 ml 1X ONCE NEB Last administered on 02/22/22at 12:03; Start 02/22/22 at 11:45; Stop 02/22/22 at 11:47; Status DC Methylprednisolone Sodium Succinate (SOLU-Medrol 125MG VIAL) 125 mg 1X ONCE IV Last administered on 02/22/22at 12:27; Start 02/22/22 at 11:45; Stop 02/22/22 at 11:47; Status DC Ceftriaxone Sodium (Rocephin) 1 gm 1X ONCE IVP Last administered on 02/22/22at 15:27; Start 02/22/22 at 14:30; Stop 02/22/22 at 14:31; Status DC Azithromycin (Zithromax) 500 mg 1X ONCE PO Last administered on 02/22/22at 15:26; Start 02/22/22 at 14:30; Stop 02/22/22 at 14:31; Status DC Ondansetron HCl (Zofran) 4 mg PRN Q8HRS PRN IVP NAUSEA/VOMITING; Start 02/22/22 at 14:30; Stop 02/23/22 at 14:29; Status DC Albuterol/ Ipratropium (Duoneb) 3 ml RTQID NEB ; Start 02/23/22 at 08:00; Stop 02/22/22 at 22:52; Status DC Albuterol/ Ipratropium (Duoneb) 3 ml RTQID NEB Last administered on 03/01/22at 07:17; Start 02/22/22 at 23:00; Stop 03/01/22 at 11:41; Status DC Albuterol Sulfate (Ventolin Neb Soln) 2.5 mg PRN Q4HRS PRN NEB SHORTNESS OF BREATH Last administered on 03/01/22at 03:00; Start 02/22/22 at 23:00 Oxycodone/ Acetaminophen (Percocet 10/325) 1 tab PRN Q6HRS PRN PO PAIN Last administered on 03/03/22at 20:43; Start 02/22/22 at 23:00 Alprazolam (Xanax) 0.5 mg BID PO Last administered on 03/04/22at 10:13; Start 02/23/22 at 09:00 Polyethylene Glycol (miraLAX PACKET) 17 gm DAILY PO ; Start 02/23/22 at 09:00 Tizanidine HCl (Zanaflex) 4 mg BID PO Last administered on 03/04/22 10:13; Start 02/23/22 at 09:00 Vitamin D (Vitamin D3) 500 unit DAILY PO Last administered on 03/04/22 10:13; Start 02/23/22 at 09:00 Budesonide (Pulmicort) 0.5 mg RTBID NEB Last administered on 02/23/22at 08:00; Start 02/23/22 at 08:00; Stop 02/23/22 at 08:53; Status DC Gabapentin (Neurontin) 600 mg TID PO Last administered on 03/04/22 10:13; Start 02/23/22 at 09:00 Losartan Potassium (Cozaar) 50 mg DAILY PO Last administered on 03/04/22 10:13; Start 02/23/22 at 09:00 Pantoprazole Sodium (Protonix) 40 mg DAILYAC PO Last administered on 03/04/22at 05:50; Start 02/23/22 at 07:30 Pramipexole Dihydrochloride (miraPEX) 0.5 mg DAILYWSUP PO ; Start 02/23/22 at 17:00; Stop 02/22/22 at 23:47; Status DC Pramipexole Dihydrochloride (miraPEX) 0.5 mg DAILYWSUP PO Last administered on 03/03/22at 17:02; Start 02/22/22 at 23:45 Hydrochlorothiazide (Microzide) 12.5 mg DAILY PO Last administered on 03/04/22at 10:14; Start 02/23/22 at 09:00 Ceftriaxone Sodium (Rocephin) 1 gm Q24H IVP Last administered on 02/27/22at 14:23; Start 02/23/22 at 15:00; Stop 02/28/22 at 08:42; Status DC Methylprednisolone Sodium Succinate (SOLU-Medrol 40MG VIAL) 40 mg Q12HR IV Last administered on 02/24/22at 21:02; Start 02/23/22 at 10:00; Stop 02/25/22 at 09:01; Status DC Lactobacillus Rhamnosus (Culturelle) 1 cap BID PO Last administered on 03/03/22at 20:34; Start 02/23/22 at 21:00; Stop 03/04/22 at 08:08; Status DC Enoxaparin Sodium (Lovenox 40mg Syringe) 40 mg Q24H SQ ; Start 02/25/22 at 21:00; Stop 02/28/22 at 08:42; Status DC Methylprednisolone Sodium Succinate (SOLU-Medrol 40MG VIAL) 60 mg Q12HR IV Last administered on 02/27/22at 20:29; Start 02/25/22 at 09:00; Stop 02/28/22 at 08:43; Status DC Azithromycin (Zithromax) 500 mg 1X ONCE PO Last administered on 02/25/22at 09:35; Start 02/25/22 at 09:30; Stop 02/25/22 at 09:31; Status DC Azithromycin (Zithromax) 500 mg DAILY ONCE PO Last administered on 02/27/22at 17:48; Start 02/27/22 at 18:00; Stop 02/27/22 at 18:01; Status DC Cefdinir (Omnicef) 300 mg BID PO Last administered on 03/03/22at 20:33; Start at 09:00; Stop 03/04/22 at 08:08; Status DC Prednisone (Prednisone) 40 mg DAILY PO Last administered on 03/02/22at 09:11; Start 02/28/22 at 09:00; Stop 03/02/22 at 10:36; Status DC Furosemide (Lasix) 20 mg 1X ONCE IVP Last administered on 03/01/22at 15:51; Start 03/01/22 at 11:45; Stop 03/01/22 at 11:46; Status DC Albuterol/ Ipratropium (Duoneb) 3 ml Q4HRS NEB Last administered on 03/04/22at 11:30; Start 03/01/22 at 11:45 Budesonide (Pulmicort) 0.5 mg RTBID NEB Last administered on 03/04/22at 08:00; Start 03/01/22 at 13:00 Roflumilast (Daliresp) 250 mcg DAILY PO Last administered on 03/04/22at 10:14; Start 03/02/22 at 09:00 Methylprednisolone Sodium Succinate (SOLU-Medrol 40MG VIAL) 60 mg Q6HRS IV Last administered on 03/04/22at 11:52; Start 03/02/22 at 12:00 Guaifenesin (Mucinex) 600 mg BID PO Last administered on 03/04/22at 10:13; Start 03/02/22 at 11:00 Guaifenesin (MUCINEX ER with DM) 600 tab BID PO ; Start 03/02/22 at 11:00; Status Cancel Furosemide (Lasix) 40 mg 1X ONCE IVP Last administered on 03/02/22at 12:02; Start 03/02/22 at 12:15; Stop 03/02/22 at 12:16; Status DC Magnesium Sulfate 50 ml @ 25 mls/hr 1X ONCE IV Last administered on 03/03/22at 11:46; Start 03/03/22 at 10:30; Stop 03/03/22 at 12:29; Status DC Active Scripts Active Reported Advair 100-50 Diskus (Fluticasone/Salmeterol) 1 Each Disk.w.dev 1 Puff IH BID Albuterol Sulfate Neb Soln (Albuterol Sulfate) 0.63 Mg/3 Ml Vial.neb 1 Vial NEB TID Miralax (Polyethylene Glycol 3350) 17 Gm Powd.pack 1 Packet PO DAILY 2 Days dissolve in water Prilosec Otc (Omeprazole Magnesium) 20 Mg Tablet.dr 10 Mg PO DAILY Vitamin D3 (Cholecalciferol (Vitamin D3)) 250 Mcg Tablet 500 Mcg PO DAILY Percocet 10-325 Mg Tablet (Oxycodone/Acetaminophen) 1 Each Tablet 1.5 Tab PO PRN Q8HRS PRN MDD 4 Tablet(s) 5 Days Percocet 10-325 Mg Tablet (Oxycodone/Acetaminophen) 1 Each Tablet 1 Tab PO PRN Q6HRS PRN Losartan-Hctz 50-12.5 Mg Tab (Losartan/Hydrochlorothiazide) 1 Each Tablet 1 Tab PO DAILY Gabapentin 600 Mg Tablet 600 Mg PO TID Xanax (Alprazolam) 0.5 Mg Tablet 1 Tab PO BID Tizanidine Hcl 4 Mg Tablet 1 Tab PO BID Mirapex (Pramipexole Di-Hcl) 0.25 Mg Tablet 0.5 Mg PO DAILY 1900 Allergies Allergies: Coded Allergies: Iodinated Contrast Media (Verified Adverse Reaction, Severe, SEIZURES, 02/22/22) ROS General: No: Chills, Malaise PSYCHOLOGICAL ROS: No: Anxiety, Depression Eyes: No Blurry vision, No Double vision HEENT: No: Heacaches, Sore Throat Hematological and Lymphatic: No: Bleeding Problems, Blood Clots Respiratory: YES: Cough, Shortness of breath Cardiovascular: No Chest Pain, No Palpitations Gastrointestinal: Yes Other (see HPI) Genitourinary: No Dysuria, No Hematuria Musculoskeletal: No Muscle Pain Neurological: No Impaired Coord/balance, No Numbness/Tingling Skin: No Pruritus, No Rash Physical Exam General: Alert, Oriented X3, Cooperative HEENT: Atraumatic, PERRLA Lungs: Other (diminished, on 02) Heart: Regular rate, Normal S1, Normal S2 Abdomen: Soft, No tenderness Extremities: No clubbing, No cyanosis Skin: No rashes, No breakdown Neuro: Normal speech, Sensation intact Psych/Mental Status: Mental status NL, Mood NL MUSCULOSKELETAL: No deformity, No swelling Vitals VITALS Vital Signs Date Time Temp Pulse Resp B/P (MAP) Pulse Ox O2 Delivery O2 Flow Rate FiO2 03/04/22 11:30 93 Nasal Cannula 2.0 03/04/22 11:00 97.9 98 18 127/76 (93) 97.9 Assessment/Plan Assessment/Plan Chronic respiratory failure HH, possible gastric volvulus--no obstructive symptoms, has been on a regular diet she is a very prohibitive surgical candidate with chronic respiratory issues, steroid use reviewed with Dr Boudreaux, no current surgical plans, if difficulty with diet, consider upper gi to further evaluation MICHELE BECK VETERINARY PHYSIOLOGIST Mar 04, 2022 13:13
[2022-03-04 15:00] VITALS: BP 140/73
[2022-03-04] MEDS: PRAMIPEXOLE 0.25 MG TABLET. PO SCH (16:46)
--- NOTE | 2022-03-04 17:26 | NUR ---
This RN verified with Dr. Montague by telephone that pt can advance to a full liquid diet. Tolerating clears well.
[2022-03-04 19:00] VITALS: BP 168/86
[2022-03-04] MEDS: oxyCODONE/APAP 10/325 1 TAB TABLET PO PRN (22:05)
[2022-03-04 23:00] VITALS: BP 120/69
[2022-03-05] MEDS: methylPREDNISolone SOD SUCC PF 40 MG/ML VIAL. IV SCH ×5 (00:19→23:48)
[2022-03-05 03:00] VITALS: BP 126/69
[2022-03-05] MEDS: IPRATRPIUM/ALBUTEROL 0.5/2.5MG 3 ML NEBU. NEB SCH ×6 (05:05→20:00)
[2022-03-05] MEDS: PANTOPRAZOLE 40 MG TABLET.DR. PO SCH (06:27)
[2022-03-05 07:00] VITALS: BP 150/63
[2022-03-05] MEDS: BUDESONIDE 0.5 MG/2 ML NEBU. NEB SCH ×2 (08:38→20:00)
[2022-03-05] MEDS: oxyCODONE/APAP 10/325 1 TAB TABLET PO PRN ×2 (08:49→16:59)
[2022-03-05] MEDS: POLYETHYLENE GLYCOL 3350 17 GM PACKET. PO SCH (09:00)
--- NOTE | 2022-03-05 09:14 | PDOC ---
SURGICAL PROGRESS NOTE DATE: 03/05/22 TIME: 09:11 Subjective continues spitting up liquids, no worse, but no better than has been for a very long time feels bloated always ongoing SOA, fatigue with ambulating ROS: no fevers, no chills NO chest pain, palpations No dysuria, hematuria Vital Signs Vital Signs Date Time Temp Pulse Resp B/P (MAP) Pulse Ox O2 Delivery O2 Flow Rate FiO2 03/05/22 08:49 20 98 Nasal Cannula 2.0 03/05/22 03:00 97.5 61 126/69 (88) 97.5 I&O Intake and Output 03/05/22 07:00 Intake Total 1380 ml Output Total 1500 ml Balance -120 ml Intake Oral 1380 ml Output Urine Total 1500 ml # Voids 1 General: Alert, Cooperative Lungs: Other (SOA on exam, requiring O2) Abdomen: Soft, No tenderness Problem List very poor respiratory status ongoing issues, appear chronic will review with Dr Boudreaux, however resp status, SOA with ambulating short distances makes patient a very poor surgical candidate Justicifation of Admission Dx: Justifications for Admission: Justification of Admission Dx: MICHELE Ratliff BACKEND P[employer] DEVELOPER Mar 05, 2022 09:14
--- NOTE | 2022-03-05 09:18 | PN ---
DATE: 03/05/2022 DAILY PROGRESS NOTE LOCATION: She is in room 516. SUBJECTIVE: This 76-year-old female admitted with exacerbation of COPD and shortness of breath. She remains on 2 liters per nasal cannula oxygen, is still short of breath with any exertion. Interestingly, the patient's story goes back 2 years ago to having respiratory illness, which was never diagnosed as COVID, but ever since then has been short of breath. Prior to that, denies vehemently that she had no problems whatsoever breathing. She has multiple questions regarding her hiatal hernia and I explained to her the surgeon will discuss with her today, but so far their impression is they would not do anything about it. She does admit difficulties swallowing at times. OBJECTIVE: VITAL SIGNS: Stable. She is afebrile. GENERAL: She is awake and alert. O2 at 2 liters per nasal cannula oxygen. CHEST: Diffuse expiratory wheezing. HEART: Regular rate and rhythm. ABDOMEN: Benign. EXTREMITIES: Without cyanosis, clubbing, edema. NEUROLOGIC: She is intact. ASSESSMENT: 1. Exacerbation of chronic obstructive pulmonary disease, slow to improve. 2. Acute on chronic hypoxic respiratory failure. 3. Large hiatal hernia with gastric volvulus certainly could be contributing to her breathing problems in addition to the size of the hiatal hernia. PLAN: Pulmonary help appreciated. Continue treatment of COPD. See surgeon's final recommendations regarding the hernia. NIKHIL DR: Dora TID: [id number]
[2022-03-05] MEDS: GABAPENTIN 300 MG CAPSULE. PO SCH ×3 (09:41→21:23)
[2022-03-05] MEDS: hydroCHLOROthiazide 12.5 MG TABLET PO SCH (09:41)
[2022-03-05] MEDS: tiZANidine 4 MG TABLET. PO SCH ×2 (09:41→21:23)
[2022-03-05] MEDS: ALPRAZolam 0.5 MG TABLET PO SCH ×2 (09:41→21:22)
[2022-03-05] MEDS: LOSARTAN POTASSIUM 50 MG TABLET. PO SCH (09:41)
[2022-03-05] MEDS: CHOLECALCIFEROL (VITAMIN D3) 1,000 UNIT TABLET PO SCH (09:42)
[2022-03-05] MEDS: ROFLUMILAST 500 MCG TABLET. PO SCH (09:42)
--- NOTE | 2022-03-05 10:17 | PDOC ---
PULMONARY PROGRESS NOTES DATE: 03/05/22 TIME: 10:14 Subjective Patient still not clinically better. Still having wheezing. Vitals Vital Signs Date Time Temp Pulse Resp B/P (MAP) Pulse Ox O2 Delivery O2 Flow Rate FiO2 03/05/22 09:41 61 126/69 03/05/22 08:49 20 98 Nasal Cannula 2.0 03/05/22 03:00 97.5 97.5 General: Alert, No acute distress, Mild Distress Lungs: Wheezing (Bilateral diffuse wheezing) Cardiovascular: S1, S2 Abdomen: Soft, Non-tender Extremities: No Edema Skin: Warm Medications Active Scripts Medications Dose Route/Sig Max Daily Dose Days Date Category Dose Instructions Advair 100-50 Diskus (Fluticasone/Salmeterol) 1 Each Disk.w.dev 1 Puff IH BID 09/26/21 Reported Albuterol Sulfate Neb Soln (Albuterol Sulfate) 0.63 Mg/3 Ml Vial.neb 1 Vial NEB TID 09/26/21 Reported Miralax (Polyethylene Glycol 3350) 17 Gm Powd.pack 1 Packet PO DAILY 2 06/28/21 Reported dissolve in water Prilosec Otc (Omeprazole Magnesium) 20 Mg Tablet.dr 10 Mg PO DAILY 01/25/20 Reported Vitamin D3 (Cholecalciferol (Vitamin D3)) 250 Mcg Tablet 500 Mcg PO DAILY 01/25/20 Reported Percocet 10-325 Mg Tablet (Oxycodone/Acetaminophen) 1 Each Tablet 1.5 Tab PO PRN Q8HRS PRN MDD 4 Tablet(s) 5 01/25/20 Reported Percocet 10-325 Mg Tablet (Oxycodone/Acetaminophen) 1 Each Tablet 1 Tab PO PRN Q6HRS PRN 01/25/20 Reported Losartan-Hctz 50-12.5 Mg Tab (Losartan/Hydrochlorothiazide) 1 Each Tablet 1 Tab PO DAILY 01/25/20 Reported Gabapentin 600 Mg Tablet 600 Mg PO TID 01/25/20 Reported Xanax (Alprazolam) 0.5 Mg Tablet 1 Tab PO BID 01/25/20 Reported Tizanidine Hcl 4 Mg Tablet 1 Tab PO BID 01/25/20 Reported Mirapex (Pramipexole Di-Hcl) 0.25 Mg Tablet 0.5 Mg PO DAILY 1900 01/25/20 Reported Comments Chest x-ray reviewed dated 03/01/2022. Questionable mildly prominent interstitial markings with tiny basal effusions Abnormal chest x-ray dated 02/26/2022 Small right pleural effusion, questionable mild CHF Impression . 1. Acute on chronic hypoxemic respiratory failure, multifactorial. Persistent bronchospasm despite maximum bronchodilators and steroids. CT of the chest showing large hiatal hernia and gastric volvulus. This is likely contributing to patient's bronchospasm with chronic acid aspiration. No obstruction with volvulus. 2. CT chest without any focal consolidation 3. Acute exacerbation of chronic obstructive pulmonary disease./Diffuse bronchospasm, etiology of bronchospasm as discussed above. 4. Tobacco dependent. 5. On home oxygen chronically at 2.5 L 6. No evidence of CHF contributing to bronchospasm. Previous echo in 2020 was with normal ejection fraction and grade 1 diastolic dysfunction. Plan . 1. Patient has persistent diffuse wheezing . Duo nebs every 4 hours since 03/01, Pulmicort added since . . After review of the CT chest with large hiatal hernia and gastric volvulus, bronchospasm is likely contributed by ongoing acid aspiration. General surgery was consulted. Not an optimal candidate for surgery. GI consulted as well. Patient changed to clear liquid diet. On PPI. 2. On IV Solu-Medrol. 3. Patient is on home oxygen at 2.5 L. Current oxygen requirement stable. 4. All dietary instructions given to the patient. She will eat her supper 3 to 4 hours before going to bed. She will always sustain upright position while eating. 5. CT chest reviewed. 6. Normal ejection fraction on repeat an echocardiogram. 7. Patient is getting tired of ongoing bronchospasm. I would repeat magnesium sulfate today. I will also add BiPAP at nighttime to help work of breathing at night. She is agreeable to that. AN PRIETO MD Mar 05, 2022 10:17
[2022-03-05] MEDS ORDERED: MAGNESIUM SULFATE 2GM 50 ML IV ONE (10:45)
[2022-03-05 11:00] VITALS: BP 107/52
[2022-03-05 15:00] VITALS: BP 139/69
[2022-03-05] MEDS: PRAMIPEXOLE 0.25 MG TABLET. PO SCH (16:59)
[2022-03-05 19:51] VITALS: BP 145/76
[2022-03-05 23:41] VITALS: BP 114/65
[2022-03-06 03:30] VITALS: BP 127/83
[2022-03-06] MEDS: IPRATRPIUM/ALBUTEROL 0.5/2.5MG 3 ML NEBU. NEB SCH ×7 (04:00→23:29)
[2022-03-06] MEDS: PANTOPRAZOLE 40 MG TABLET.DR. PO SCH (06:18)
[2022-03-06] MEDS: methylPREDNISolone SOD SUCC PF 40 MG/ML VIAL. IV SCH ×3 (06:18→18:50)
[2022-03-06 07:00] VITALS: BP 133/82
[2022-03-06] MEDS: BUDESONIDE 0.5 MG/2 ML NEBU. NEB SCH ×2 (07:13→18:04)
[2022-03-06] MEDS: POLYETHYLENE GLYCOL 3350 17 GM PACKET. PO SCH (09:00)
[2022-03-06] MEDS: ROFLUMILAST 500 MCG TABLET. PO SCH (10:03)
[2022-03-06] MEDS: CHOLECALCIFEROL (VITAMIN D3) 1,000 UNIT TABLET PO SCH (10:04)
[2022-03-06] MEDS: oxyCODONE/APAP 10/325 1 TAB TABLET PO PRN ×2 (10:04→18:51)
[2022-03-06] MEDS: tiZANidine 4 MG TABLET. PO SCH ×2 (10:05→21:05)
[2022-03-06] MEDS: LOSARTAN POTASSIUM 50 MG TABLET. PO SCH (10:05)
[2022-03-06] MEDS: ALPRAZolam 0.5 MG TABLET PO SCH ×2 (10:05→21:05)
[2022-03-06] MEDS: hydroCHLOROthiazide 12.5 MG TABLET PO SCH (10:06)
[2022-03-06] MEDS: GABAPENTIN 300 MG CAPSULE. PO SCH ×3 (10:06→21:06)
--- NOTE | 2022-03-06 10:10 | PDOC ---
PULMONARY PROGRESS NOTES DATE: 03/06/22 TIME: 10:08 Subjective Feels slightly better. Coughing up some yellow sputum. Used BiPAP for an hour. Last night. Vitals Vital Signs Date Time Temp Pulse Resp B/P (MAP) Pulse Ox O2 Delivery O2 Flow Rate FiO2 03/06/22 10:05 79 127/83 03/06/22 10:04 20 97 Nasal Cannula 2.0 03/05/22 23:41 97.7 97.7 General: Alert, No acute distress, Mild Distress Lungs: Wheezing (Bilateral but less) Cardiovascular: S1, S2 Abdomen: Soft, Non-tender Extremities: No Edema Skin: Warm Medications Active Scripts Medications Dose Route/Sig Max Daily Dose Days Date Category Dose Instructions Advair 100-50 Diskus (Fluticasone/Salmeterol) 1 Each Disk.w.dev 1 Puff IH BID 09/26/21 Reported Albuterol Sulfate Neb Soln (Albuterol Sulfate) 0.63 Mg/3 Ml Vial.neb 1 Vial NEB TID 09/26/21 Reported Miralax (Polyethylene Glycol 3350) 17 Gm Powd.pack 1 Packet PO DAILY 2 06/28/21 Reported dissolve in water Prilosec Otc (Omeprazole Magnesium) 20 Mg Tablet.dr 10 Mg PO DAILY 01/25/20 Reported Vitamin D3 (Cholecalciferol (Vitamin D3)) 250 Mcg Tablet 500 Mcg PO DAILY 01/25/20 Reported Percocet 10-325 Mg Tablet (Oxycodone/Acetaminophen) 1 Each Tablet 1.5 Tab PO PRN Q8HRS PRN MDD 4 Tablet(s) 5 01/25/20 Reported Percocet 10-325 Mg Tablet (Oxycodone/Acetaminophen) 1 Each Tablet 1 Tab PO PRN Q6HRS PRN 01/25/20 Reported Losartan-Hctz 50-12.5 Mg Tab (Losartan/Hydrochlorothiazide) 1 Each Tablet 1 Tab PO DAILY 01/25/20 Reported Gabapentin 600 Mg Tablet 600 Mg PO TID 01/25/20 Reported Xanax (Alprazolam) 0.5 Mg Tablet 1 Tab PO BID 01/25/20 Reported Tizanidine Hcl 4 Mg Tablet 1 Tab PO BID 01/25/20 Reported Mirapex (Pramipexole Di-Hcl) 0.25 Mg Tablet 0.5 Mg PO DAILY 1900 01/25/20 Reported Comments Chest x-ray reviewed dated 03/01/2022. Questionable mildly prominent interstitial markings with tiny basal effusions Abnormal chest x-ray dated 02/26/2022 Small right pleural effusion, questionable mild CHF Impression . 1. Acute on chronic hypoxemic respiratory failure, multifactorial. Persistent bronchospasm despite maximum bronchodilators and steroids. CT of the chest showing large hiatal hernia and gastric volvulus. This is likely contributing to patient's bronchospasm with chronic acid aspiration. No obstruction with volvulus. 2. CT chest without any focal consolidation 3. Acute exacerbation of chronic obstructive pulmonary disease./Diffuse bronchospasm, etiology of bronchospasm as discussed above. 4. Tobacco dependent. 5. On home oxygen chronically at 2.5 L 6. No evidence of CHF contributing to bronchospasm. Previous echo in 2020 was with normal ejection fraction and grade 1 diastolic dysfunction. 7. Cough with yellow sputum production for 1721. We will add empiric antibiotics Plan . 1. Patient has persistent diffuse wheezing . Duo nebs every 4 hours since 03/01, Pulmicort added since . . After review of the CT chest with large hiatal hernia and gastric volvulus, bronchospasm is likely contributed by ongoing acid aspiration. General surgery was consulted. Not an optimal candidate for surgery. GI consulted as well. Patient changed to clear liquid diet. On PPI. 2. On IV Solu-Medrol. 3. Patient is on home oxygen at 2.5 L. Current oxygen requirement stable. 4. All dietary instructions given to the patient. She will eat her supper 3 to 4 hours before going to bed. She will always sustain upright position while eating. 5. CT chest reviewed. 6. Normal ejection fraction on repeat an echocardiogram. 7. Patient is getting tired of ongoing bronchospasm. I would repeat magnesium sulfate today. I will also add BiPAP at nighttime to help work of breathing at night. She is agreeable to that. 8. Add empiric antibiotic. AN PRIETO MD Mar 06, 2022 10:10
[2022-03-06] MEDS ORDERED: PIP/TAZO PER PHARMACY MC PRN (10:15)
--- NOTE | 2022-03-06 10:38 | PN ---
DATE: 03/06/2022 LOCATION: She is in room 516. SUBJECTIVE: This 76-year-old female admitted with exacerbation of COPD with shortness of breath and wheezing. She remains on 2 liters per nasal cannula oxygen and feels her breathing is a little bit better today. She has ongoing problems with swallowing from this large hiatal hernia. Does not feel like pudding is any better than mashed potatoes. Surgery feels it would be too high risk to fix at this point in time. OBJECTIVE: VITAL SIGNS: Stable. She is afebrile. GENERAL: She is awake and alert, stable O2 needs. CHEST: Much less wheezy today with better air exchange. HEART: Regular rate and rhythm. ABDOMEN: Benign. NEUROLOGIC: She is intact. ASSESSMENT: 1. Exacerbation of chronic obstructive pulmonary disease. 2. Acute on chronic hypoxic respiratory failure. 3. Large hiatal hernia with gastric volvulus. Certainly contributing overall to her breathing difficulties and swallowing. PLAN: Pulmonary help appreciated. Continue treatment of COPD. LANRE DR: Dora TID: [id number]
[2022-03-06 11:00] VITALS: BP 102/49
--- NOTE | 2022-03-06 13:01 | PDOC ---
SURGICAL PROGRESS NOTE DATE: 03/06/22 TIME: 13:00 Subjective in bed some trouble with liquids sticking today, no emesis no abdominal pain ROS: no fevers, chills no CP, palpations + SOA, cough Vital Signs Vital Signs Date Time Temp Pulse Resp B/P (MAP) Pulse Ox O2 Delivery O2 Flow Rate FiO2 03/06/22 11:22 98 Nasal Cannula 2.0 03/06/22 10:05 79 127/83 03/06/22 10:04 20 03/06/22 07:00 98.3 98.3 I&O Intake and Output 03/06/22 07:00 Intake Total 1270 ml Balance 1270 ml Intake Oral 1220 ml IV Total 50 ml # Voids 3 General: Alert, Oriented X3, Cooperative Abdomen: Soft, No tenderness Problem List recommend diet as tolerated no current surgical plans, not a surgical candidate with pulmonary status can FU as outpt once respiratory status improved Justicifation of Admission Dx: Justifications for Admission: Justification of Admission Dx: No MICHELE BECK APRN Mar 06, 2022 13:01
[2022-03-06] MEDS: PIPERACILLIN/TAZOBACTAM 3.375 GM in IV NORMAL SALINE 50ML 50 ML IV SCH ×2 (14:44→18:50)
[2022-03-06] MEDS: PRAMIPEXOLE 0.25 MG TABLET. PO SCH (18:44)
[2022-03-06 19:57] VITALS: BP 142/69
[2022-03-06 23:21] VITALS: BP 122/63
[2022-03-07] MEDS: PIPERACILLIN/TAZOBACTAM 3.375 GM in IV NORMAL SALINE 50ML 50 ML IV SCH ×4 (00:03→17:28)
[2022-03-07] MEDS: methylPREDNISolone SOD SUCC PF 40 MG/ML VIAL. IV SCH ×4 (00:03→21:52)
[2022-03-07] MEDS: IPRATRPIUM/ALBUTEROL 0.5/2.5MG 3 ML NEBU. NEB SCH ×5 (04:00→21:06)
[2022-03-07] MEDS: PANTOPRAZOLE 40 MG TABLET.DR. PO SCH (06:04)
[2022-03-07 07:00] VITALS: BP 174/88
[2022-03-07] MEDS: BUDESONIDE 0.5 MG/2 ML NEBU. NEB SCH ×2 (07:38→21:06)
[2022-03-07] MEDS: POLYETHYLENE GLYCOL 3350 17 GM PACKET. PO SCH (09:00)
[2022-03-07] MEDS: hydroCHLOROthiazide 12.5 MG TABLET PO SCH (09:43)
[2022-03-07] MEDS: CHOLECALCIFEROL (VITAMIN D3) 1,000 UNIT TABLET PO SCH (09:43)
[2022-03-07] MEDS: tiZANidine 4 MG TABLET. PO SCH ×2 (09:44→20:32)
[2022-03-07] MEDS: ALPRAZolam 0.5 MG TABLET PO SCH ×2 (09:44→20:32)
[2022-03-07] MEDS: ROFLUMILAST 500 MCG TABLET. PO SCH (09:44)
[2022-03-07] MEDS: LOSARTAN POTASSIUM 50 MG TABLET. PO SCH (09:46)
--- NOTE | 2022-03-07 09:57 | PDOC ---
Provider Note Date of Service: DATE: 03/07/22 TIME: 09:56 Provider Note feels better last day , when not eating- not a sustainable plan, but continue same for now- add nystatin re thrush, she denies any sputum at present Justifications for Admission Other Justification MARLA MARTINEZ MD Mar 07, 2022 09:57
--- NOTE | 2022-03-07 10:43 | PDOC ---
Date of Service: DATE: 03/07/22 TIME: 10:38 Subjective: Subjective: Breathing better but doesn't feel as good overall today - tired. Issues swallowing full liquids (hangs in mid neck/upper chest), also doesn't care for that diet much - asks for crackers. Objective: Objective: D/w nurse - asks for mashed potatoes, also has thrush - Dr. Aguilar present and starting Nystatin SWSW. Vital Signs: Vital Signs Date Time Temp Pulse Resp B/P (MAP) Pulse Ox O2 Delivery O2 Flow Rate FiO2 03/07/22 09:46 98 134/64 03/07/22 08:00 Nasal Cannula 2.0 03/07/22 07:38 96 03/06/22 23:21 98.0 16 98.0 PE: GEN: NAD - does look a bit more fatigued compared to last week LUNGS: clear anteriorly, NC 2L HEART: RRR ABD: S/ND/NT NEURO/PSYCH: A & O 3 A/P: Chronic resp failure Hiatal hernia/suspect paraesophageal component w/ dysphagia Thrush -- Difficult situation - not a good surgical candidate. Can try some crackers - she'd like to advance diet but admits to some difficulty w/ full liquids. Justicifation of Admission Dx: Justifications for Admission: Justification of Admission Dx: No BEAR-MARY GRACE BRASWELL Mar 07, 2022 10:43
[2022-03-07] MEDS: NYSTATIN 100,000 UNITS/ML 5 ML ORAL.SUSP. SWSW SCH ×4 (10:46→20:32)
[2022-03-07] MEDS: GABAPENTIN 300 MG CAPSULE. PO SCH ×3 (10:46→20:32)
[2022-03-07 11:00] VITALS: BP 103/58
--- NOTE | 2022-03-07 11:16 | PDOC ---
PULMONARY PROGRESS NOTES DATE: 03/07/22 TIME: 11:12 Subjective Feels slightly better. Vitals Vital Signs Date Time Temp Pulse Resp B/P (MAP) Pulse Ox O2 Delivery O2 Flow Rate FiO2 03/07/22 09:46 98 134/64 03/07/22 08:00 Nasal Cannula 2.0 03/07/22 07:38 96 03/06/22 23:21 98.0 16 98.0 General: Alert, No acute distress Lungs: Wheezing (Improving) Cardiovascular: S1, S2 Abdomen: Soft, Non-tender Extremities: No Edema Skin: Warm Medications Active Scripts Medications Dose Route/Sig Max Daily Dose Days Date Category Dose Instructions Advair 100-50 Diskus (Fluticasone/Salmeterol) 1 Each Disk.w.dev 1 Puff IH BID 09/26/21 Reported Albuterol Sulfate Neb Soln (Albuterol Sulfate) 0.63 Mg/3 Ml Vial.neb 1 Vial NEB TID 09/26/21 Reported Miralax (Polyethylene Glycol 3350) 17 Gm Powd.pack 1 Packet PO DAILY 2 06/28/21 Reported dissolve in water Prilosec Otc (Omeprazole Magnesium) 20 Mg Tablet.dr 10 Mg PO DAILY 01/25/20 Reported Vitamin D3 (Cholecalciferol (Vitamin D3)) 250 Mcg Tablet 500 Mcg PO DAILY 01/25/20 Reported Percocet 10-325 Mg Tablet (Oxycodone/Acetaminophen) 1 Each Tablet 1.5 Tab PO PRN Q8HRS PRN MDD 4 Tablet(s) 5 01/25/20 Reported Percocet 10-325 Mg Tablet (Oxycodone/Acetaminophen) 1 Each Tablet 1 Tab PO PRN Q6HRS PRN 01/25/20 Reported Losartan-Hctz 50-12.5 Mg Tab (Losartan/Hydrochlorothiazide) 1 Each Tablet 1 Tab PO DAILY 01/25/20 Reported Gabapentin 600 Mg Tablet 600 Mg PO TID 01/25/20 Reported Xanax (Alprazolam) 0.5 Mg Tablet 1 Tab PO BID 01/25/20 Reported Tizanidine Hcl 4 Mg Tablet 1 Tab PO BID 01/25/20 Reported Mirapex (Pramipexole Di-Hcl) 0.25 Mg Tablet 0.5 Mg PO DAILY 1900 01/25/20 Reported Comments Chest x-ray reviewed dated 03/01/2022. Questionable mildly prominent interstitial markings with tiny basal effusions Abnormal chest x-ray dated 02/26/2022 Small right pleural effusion, questionable mild CHF Impression . 1. Acute on chronic hypoxemic respiratory failure, multifactorial. Persistent bronchospasm despite maximum bronchodilators and steroids. CT of the chest showing large hiatal hernia and gastric volvulus. This is likely contributing to patient's bronchospasm with chronic acid aspiration. No obstruction with volvulus. Slowly improving since she is on a clear liquid diet. Not a surgical candidate for hiatal hernia repair 2. CT chest without any focal consolidation 3. Acute exacerbation of chronic obstructive pulmonary disease./Diffuse bronchospasm, etiology of bronchospasm as discussed above. 4. Tobacco dependent. 5. On home oxygen chronically at 2.5 L 6. No evidence of CHF contributing to bronchospasm. Previous echo in 2020 was with normal ejection fraction and grade 1 diastolic dysfunction. 7. Cough with yellow sputum production for 1721. Zosyn added yesterday. She is feeling better Plan . 1. Patient's wheezing is slowly improving. She is starting to feel better as well. Continue duo nebs every 4 hours since 03/01, Pulmicort since 412. . After review of the CT chest with large hiatal hernia and gastric volvulus, bronchospasm is likely contributed by ongoing acid aspiration. General surgery was consulted. Not an optimal candidate for surgery. GI consulted as well. Patient changed to clear liquid diet. On PPI. 2. On IV Solu-Medrol. We will start tapering the dose. 3. Patient is on home oxygen at 2.5 L. Current oxygen requirement stable. 4. All dietary instructions given to the patient. She will eat her supper 3 to 4 hours before going to bed. She will always sustain upright position while eating. 5. CT chest reviewed. 6. Normal ejection fraction on repeat an echocardiogram. 7. Discontinue BiPAP. 8. Empiric Zosyn. 9. Patient is now clinically improving. Possible discharge in next 48 hours. We will start tapering the dose of IV Solu-Medrol. AN PRIETO MD Mar 07, 2022 11:16
[2022-03-07] MEDS: LACTOBACILLUS RHAMNOSUS GG 1 CAPSULE. PO SCH ×2 (13:03→20:32)
[2022-03-07 15:30] VITALS: BP 141/61
[2022-03-07] MEDS: PRAMIPEXOLE 0.25 MG TABLET. PO SCH (17:27)
[2022-03-07 19:00] VITALS: BP 128/74
[2022-03-07 23:31] VITALS: BP 127/73
[2022-03-08] MEDS: PIPERACILLIN/TAZOBACTAM 3.375 GM in IV NORMAL SALINE 50ML 50 ML IV SCH ×5 (00:13→23:51)
[2022-03-08] MEDS: IPRATRPIUM/ALBUTEROL 0.5/2.5MG 3 ML NEBU. NEB SCH ×6 (00:30→20:53)
[2022-03-08 03:00] VITALS: BP 123/62
[2022-03-08] MEDS: methylPREDNISolone SOD SUCC PF 40 MG/ML VIAL. IV SCH ×3 (05:56→22:15)
[2022-03-08] MEDS: PANTOPRAZOLE 40 MG TABLET.DR. PO SCH (05:57)
[2022-03-08 07:00] VITALS: BP 168/85
[2022-03-08] MEDS: BUDESONIDE 0.5 MG/2 ML NEBU. NEB SCH ×2 (07:41→20:53)
[2022-03-08] MEDS: LACTOBACILLUS RHAMNOSUS GG 1 CAPSULE. PO SCH ×2 (08:12→20:52)
[2022-03-08] MEDS: ALPRAZolam 0.5 MG TABLET PO SCH ×2 (08:12→20:46)
[2022-03-08] MEDS: tiZANidine 4 MG TABLET. PO SCH ×2 (08:12→20:46)
[2022-03-08] MEDS: CHOLECALCIFEROL (VITAMIN D3) 1,000 UNIT TABLET PO SCH (08:12)
[2022-03-08] MEDS: oxyCODONE/APAP 10/325 1 TAB TABLET PO PRN (08:13)
[2022-03-08] MEDS: LOSARTAN POTASSIUM 50 MG TABLET. PO SCH (08:13)
[2022-03-08] MEDS: GABAPENTIN 300 MG CAPSULE. PO SCH ×3 (08:14→20:46)
[2022-03-08] MEDS: POLYETHYLENE GLYCOL 3350 17 GM PACKET. PO SCH (08:14)
[2022-03-08] MEDS: ROFLUMILAST 500 MCG TABLET. PO SCH (08:14)
[2022-03-08] MEDS: hydroCHLOROthiazide 12.5 MG TABLET PO SCH (08:14)
[2022-03-08] MEDS: NYSTATIN 100,000 UNITS/ML 5 ML ORAL.SUSP. SWSW SCH ×4 (08:18→20:46)
--- NOTE | 2022-03-08 08:18 | PDOC ---
PULMONARY PROGRESS NOTES DATE: 03/08/22 TIME: 08:18 Subjective Feels slightly better. Vitals Vital Signs Date Time Temp Pulse Resp B/P (MAP) Pulse Ox O2 Delivery O2 Flow Rate FiO2 03/08/22 08:13 76 123/62 03/08/22 08:13 16 96 Nasal Cannula 2.0 03/08/22 03:00 97.3 97.3 General: Alert, No acute distress Lungs: Wheezing (Improving) Cardiovascular: S1, S2 Abdomen: Soft, Non-tender Extremities: No Edema Skin: Warm Medications Active Scripts Medications Dose Route/Sig Max Daily Dose Days Date Category Dose Instructions Advair 100-50 Diskus (Fluticasone/Salmeterol) 1 Each Disk.w.dev 1 Puff IH BID 09/26/21 Reported Albuterol Sulfate Neb Soln (Albuterol Sulfate) 0.63 Mg/3 Ml Vial.neb 1 Vial NEB TID 09/26/21 Reported Miralax (Polyethylene Glycol 3350) 17 Gm Powd.pack 1 Packet PO DAILY 2 06/28/21 Reported dissolve in water Prilosec Otc (Omeprazole Magnesium) 20 Mg Tablet.dr 10 Mg PO DAILY 01/25/20 Reported Vitamin D3 (Cholecalciferol (Vitamin D3)) 250 Mcg Tablet 500 Mcg PO DAILY 01/25/20 Reported Percocet 10-325 Mg Tablet (Oxycodone/Acetaminophen) 1 Each Tablet 1.5 Tab PO PRN Q8HRS PRN MDD 4 Tablet(s) 5 01/25/20 Reported Percocet 10-325 Mg Tablet (Oxycodone/Acetaminophen) 1 Each Tablet 1 Tab PO PRN Q6HRS PRN 01/25/20 Reported Losartan-Hctz 50-12.5 Mg Tab (Losartan/Hydrochlorothiazide) 1 Each Tablet 1 Tab PO DAILY 01/25/20 Reported Gabapentin 600 Mg Tablet 600 Mg PO TID 01/25/20 Reported Xanax (Alprazolam) 0.5 Mg Tablet 1 Tab PO BID 01/25/20 Reported Tizanidine Hcl 4 Mg Tablet 1 Tab PO BID 01/25/20 Reported Mirapex (Pramipexole Di-Hcl) 0.25 Mg Tablet 0.5 Mg PO DAILY 1900 01/25/20 Reported Comments Chest x-ray reviewed dated 03/01/2022. Questionable mildly prominent interstitial markings with tiny basal effusions Abnormal chest x-ray dated 02/26/2022 Small right pleural effusion, questionable mild CHF Impression . 1. Acute on chronic hypoxemic respiratory failure, multifactorial. Persistent bronchospasm despite maximum bronchodilators and steroids. CT of the chest showing large hiatal hernia and gastric volvulus. This is likely contributing to patient's bronchospasm with chronic acid aspiration. No obstruction with volvulus. Slowly improving since she is on a clear liquid diet. Not a surgical candidate for hiatal hernia repair 2. CT chest without any focal consolidation 3. Acute exacerbation of chronic obstructive pulmonary disease./Diffuse bronchospasm, etiology of bronchospasm as discussed above. 4. Tobacco dependent. 5. On home oxygen chronically at 2.5 L 6. No evidence of CHF contributing to bronchospasm. Previous echo in 2020 was with normal ejection fraction and grade 1 diastolic dysfunction. 7. Cough with yellow sputum production f Plan . Updated 03/08 recovery assistant to oral prednisone No need for further antibiotics Went over lifestyle changes that will help avoid further reflux Okay to discharge on 03/09 No surgical intervention at this time 1. Patient's wheezing is slowly improving. She is starting to feel better as well. Continue duo nebs every 4 hours since 03/01, Pulmicort since 412. . After review of the CT chest with large hiatal hernia and gastric volvulus, bronchospasm is likely contributed by ongoing acid aspiration. General surgery was consulted. Not an optimal candidate for surgery. GI consulted as well. Patient changed to clear liquid diet. On PPI. 2. On IV Solu-Medrol. We will start tapering the dose. 3. Patient is on home oxygen at 2.5 L. Current oxygen requirement stable. 4. All dietary instructions given to the patient. She will eat her supper 3 to 4 hours before going to bed. She will always sustain upright position while eating. 5. CT chest reviewed. 6. Normal ejection fraction on repeat an echocardiogram. 7. Discontinue BiPAP. 8. Empiric Zosyn. 9. Patient is now clinically improving. Possible discharge in next 48 hours. We will start tapering the dose of IV Solu-Medrol. JOSE BARRETT MD Mar 08, 2022 08:18
--- NOTE | 2022-03-08 10:25 | PDOC ---
Date of Service: DATE: 03/08/22 TIME: 10:21 Objective: Objective: D/w nurse - apparently much confusion about diet - tolerated yogurt and granola this morning and crackers last night, also tolerates pills. Reviewed most recent surg note: recommend diet as tolerated no current surgical plans, not a surgical candidate with pulmonary status can FU as outpt once respiratory status improved Vital Signs: Vital Signs Date Time Temp Pulse Resp B/P (MAP) Pulse Ox O2 Delivery O2 Flow Rate FiO2 03/08/22 09:35 16 96 Nasal Cannula 2.0 03/08/22 08:13 76 123/62 03/08/22 07:00 98.2 98.2 PE: GEN: NAD - I stopped by twice - was on the phone both times so not disturbed - looks comfortable LUNGS: NC 2L HEART: RR per chart ABD: non-distended NEURO/PSYCH: A & O 3 A/P: Chronic resp failure Large hiatal hernia/suspect paraesophageal component, dysphagia - poor surgical candidate -- Orders to advance diet as tolerated yesterday afternoon - since I have seen this morning, now has regular diet ordered - observe GI-malhotra. Justicifation of Admission Dx: Justifications for Admission: Justification of Admission Dx: No MARY GRACE IYER Mar 08, 2022 10:25
[2022-03-08 11:00] VITALS: BP 103/63
[2022-03-08 15:00] VITALS: BP 149/73
[2022-03-08] MEDS: PRAMIPEXOLE 0.25 MG TABLET. PO SCH (17:54)
[2022-03-08 19:00] VITALS: BP 131/83
[2022-03-08 23:00] VITALS: BP_SYST 147; BP_SYST 163; BP_DIAS 57; BP_DIAS 98
[2022-03-09] MEDS: IPRATRPIUM/ALBUTEROL 0.5/2.5MG 3 ML NEBU. NEB SCH ×4 (01:15→11:22)
[2022-03-09 03:00] VITALS: BP 137/74
[2022-03-09] MEDS: methylPREDNISolone SOD SUCC PF 40 MG/ML VIAL. IV SCH (05:51)
[2022-03-09] MEDS: PIPERACILLIN/TAZOBACTAM 3.375 GM in IV NORMAL SALINE 50ML 50 ML IV SCH ×2 (05:52→12:00)
[2022-03-09] MEDS: PANTOPRAZOLE 40 MG TABLET.DR. PO SCH (05:52)
[2022-03-09 07:00] VITALS: BP 164/100
[2022-03-09] MEDS: BUDESONIDE 0.5 MG/2 ML NEBU. NEB SCH (07:36)
[2022-03-09] MEDS: LOSARTAN POTASSIUM 50 MG TABLET. PO SCH (08:27)
[2022-03-09] MEDS: hydroCHLOROthiazide 12.5 MG TABLET PO SCH (08:27)
[2022-03-09] MEDS: NYSTATIN 100,000 UNITS/ML 5 ML ORAL.SUSP. SWSW SCH ×2 (08:27→13:56)
[2022-03-09] MEDS: oxyCODONE/APAP 10/325 1 TAB TABLET PO PRN (08:28)
[2022-03-09] MEDS: ALPRAZolam 0.5 MG TABLET PO SCH (08:29)
[2022-03-09] MEDS: POLYETHYLENE GLYCOL 3350 17 GM PACKET. PO SCH (08:30)
[2022-03-09] MEDS: tiZANidine 4 MG TABLET. PO SCH (08:30)
[2022-03-09] MEDS: CHOLECALCIFEROL (VITAMIN D3) 1,000 UNIT TABLET PO SCH (08:30)
[2022-03-09] MEDS: GABAPENTIN 300 MG CAPSULE. PO SCH ×2 (08:30→13:56)
--- NOTE | 2022-03-09 08:34 | PDOC ---
Provider Note Date of Service: DATE: 03/09/22 TIME: 08:33 Provider Note [id number] Justifications for Admission Other Justification MARLA MARTINEZ MD Mar 09, 2022 08:34
--- NOTE | 2022-03-09 09:55 | PDOC ---
PULMONARY PROGRESS NOTES DATE: 03/09/22 TIME: 09:55 Subjective Feels slightly better. Patient wishing to go home Vitals Vital Signs Date Time Temp Pulse Resp B/P (MAP) Pulse Ox O2 Delivery O2 Flow Rate FiO2 03/09/22 08:28 20 95 Nasal Cannula 2.0 03/09/22 08:27 74 137/74 03/09/22 03:00 98.5 98.5 General: Alert, No acute distress Lungs: Wheezing (Improving) Cardiovascular: S1, S2 Abdomen: Soft, Non-tender Extremities: No Edema Skin: Warm Medications Active Scripts Medications Dose Route/Sig Max Daily Dose Days Date Category Dose Instructions Advair 100-50 Diskus (Fluticasone/Salmeterol) 1 Each Disk.w.dev 1 Puff IH BID 09/26/21 Reported Albuterol Sulfate Neb Soln (Albuterol Sulfate) 0.63 Mg/3 Ml Vial.neb 1 Vial NEB TID 09/26/21 Reported Miralax (Polyethylene Glycol 3350) 17 Gm Powd.pack 1 Packet PO DAILY 2 06/28/21 Reported dissolve in water Prilosec Otc (Omeprazole Magnesium) 20 Mg Tablet.dr 10 Mg PO DAILY 01/25/20 Reported Vitamin D3 (Cholecalciferol (Vitamin D3)) 250 Mcg Tablet 500 Mcg PO DAILY 01/25/20 Reported Percocet 10-325 Mg Tablet (Oxycodone/Acetaminophen) 1 Each Tablet 1.5 Tab PO PRN Q8HRS PRN MDD 4 Tablet(s) 5 01/25/20 Reported Percocet 10-325 Mg Tablet (Oxycodone/Acetaminophen) 1 Each Tablet 1 Tab PO PRN Q6HRS PRN 01/25/20 Reported Losartan-Hctz 50-12.5 Mg Tab (Losartan/Hydrochlorothiazide) 1 Each Tablet 1 Tab PO DAILY 01/25/20 Reported Gabapentin 600 Mg Tablet 600 Mg PO TID 01/25/20 Reported Xanax (Alprazolam) 0.5 Mg Tablet 1 Tab PO BID 01/25/20 Reported Tizanidine Hcl 4 Mg Tablet 1 Tab PO BID 01/25/20 Reported Mirapex (Pramipexole Di-Hcl) 0.25 Mg Tablet 0.5 Mg PO DAILY 1900 01/25/20 Reported Comments Chest x-ray reviewed dated 03/01/2022. Questionable mildly prominent interstitial markings with tiny basal effusions Abnormal chest x-ray dated 02/26/2022 Small right pleural effusion, questionable mild CHF Impression . 1. Acute on chronic hypoxemic respiratory failure, multifactorial. Persistent bronchospasm despite maximum bronchodilators and steroids. CT of the chest showing large hiatal hernia and gastric volvulus. This is likely contributing to patient's bronchospasm with chronic acid aspiration. No obstruction with volvulus. Slowly improving since she is on a clear liquid diet. Not a surgical candidate for hiatal hernia repair 2. CT chest without any focal consolidation 3. Acute exacerbation of chronic obstructive pulmonary disease./Diffuse bronchospasm, etiology of bronchospasm as discussed above. 4. Tobacco dependent. 5. On home oxygen chronically at 2.5 L 6. No evidence of CHF contributing to bronchospasm. Previous echo in 2020 was with normal ejection fraction and grade 1 diastolic dysfunction. 7. Cough with yellow sputum production f Plan . Updated 03/09 Discharge Discussed with RN Follow-up in the office 1. Patient's wheezing is slowly improving. She is starting to feel better as well. Continue duo nebs every 4 hours since 03/01, Pulmicort since 412. . After review of the CT chest with large hiatal hernia and gastric volvulus, bronchospasm is likely contributed by ongoing acid aspiration. General surgery was consulted. Not an optimal candidate for surgery. GI consulted as well. Patient changed to clear liquid diet. On PPI. 2. On IV Solu-Medrol. We will start tapering the dose. 3. Patient is on home oxygen at 2.5 L. Current oxygen requirement stable. 4. All dietary instructions given to the patient. She will eat her supper 3 to 4 hours before going to bed. She will always sustain upright position while eating. 5. CT chest reviewed. 6. Normal ejection fraction on repeat an echocardiogram. 7. Discontinue BiPAP. 8. Empiric Zosyn. 9. Patient is now clinically improving. Possible discharge in next 48 hours. We will start tapering the dose of IV Solu-Medrol. JOSE BARRETT MD Mar 09, 2022 09:55
--- NOTE | 2022-03-09 10:43 | PDOC ---
Date of Service: DATE: 03/09/22 TIME: 10:42 Subjective: Subjective: Gets to go home. Eating okay. Shaking from steroids she thinks. Objective: Vital Signs: Vital Signs Date Time Temp Pulse Resp B/P (MAP) Pulse Ox O2 Delivery O2 Flow Rate FiO2 03/09/22 08:28 20 95 Nasal Cannula 2.0 03/09/22 08:27 74 137/74 03/09/22 07:00 98.0 98.0 PE: GEN: NAD - in restroom brushing teeth - has to sit down for this LUNGS: diminished HEART: RRR ABD: S/ND/NT NEURO/PSYCH: A & O 3 A/P: Chronic resp failure, large hiatal hernia/dysphagia -- Dc per primary. Diet as able, continue PPI. F/u w/ surgery. Justicifation of Admission Dx: Justifications for Admission: Justification of Admission Dx: Coni SIFUENTES-MARY GRACE BRASWELL Mar 09, 2022 10:43
[2022-03-09 11:00] VITALS: BP 119/78
--- NOTE | 2022-03-09 11:37 | NUR ---
SS following up with discharge planning. SS reviewed pt chart and discussed with pt RN. Pt is from home and is currently requiring oxygen at two liters nasal canula. COVID19 negative. Pt has home oxygen. Discharge order on the chart for home with self care.
--- NOTE | 2022-03-09 11:58 | DS ---
DATE OF DISCHARGE: 03/09/2022 HOSPITAL SUMMARY: A 76-year-old white female admitted with exacerbation of COPD. Chemistry profile and CBC are normal. COVID serology was negative. Blood cultures had no growth. Urinary antigen for legionella was negative as well. Chest x-ray showed no infiltrates. CT scan showed evidence of significant hiatal hernia with gastric volvulus present. She was treated with IV steroids and antibiotics and surgical consultation was obtained, but it was felt to be too high risk to consider hiatal hernia repair. She has slowly improved to the point where she is comfortable to be followed as an outpatient. FINAL DIAGNOSES: 1. Acute chronic obstructive pulmonary disease with exacerbation. 2. Gastric volvulus secondary to large hiatal hernia. OPERATIONS, PROCEDURES, AND COMPLICATIONS: None. CONSULTATION: Dr. Salgado, Dr. Hernandez, Dr. Boudreaux, and Demetrius Medina M.D. DISPOSITION: Same meds, omeprazole for acid reflux, tapering prednisone at home. She has stopped smoking two to three weeks prior to this admission with proper eating techniques and swallowing techniques were discussed regarding her hiatal hernia and gastric volvulus. PROGNOSIS: Guarded. DIMAS/ELLY/[facility] [place]: DIMAS/cliff TID: [id number]
[2022-03-09 14:00] VITALS: BP 112/57
== END 2022-03-09 14:20 | disposition home or self-care (01) | DRG 391 ==
LOC: ER 11:29 → 2 NORTH 14:13 → 5 NORTH 03-03 16:36
PROVIDERS: ADMIT Family Medicine; ATTEND Family Medicine
DX: K44.9 Diaphragmatic hernia without obstruction or gangrene (principal); J15.9 Unspecified bacterial pneumonia; J96.21 Acute and chronic respiratory failure with hypoxia; J15.6 Pneumonia due to other Gram-negative bacteria; J44.1 Chronic obstructive pulmonary disease with (acute) exacerbation; J98.11 Atelectasis; J44.0 Chronic obstructive pulmonary disease with (acute) lower respiratory infection; K31.89 Other diseases of stomach and duodenum; H26.9 Unspecified cataract; I10 Essential (primary) hypertension; I27.20 Pulmonary hypertension, unspecified; K21.9 Gastro-esophageal reflux disease without esophagitis; M48.00 Spinal stenosis, site unspecified; N20.0 Calculus of kidney; R13.10 Dysphagia, unspecified; Z20.822 Contact with and (suspected) exposure to COVID-19; Z79.891 Long term (current) use of opiate analgesic; Z87.891 Personal history of nicotine dependence; Z90.710 Acquired absence of both cervix and uterus; Z91.041 Radiographic dye allergy status; Z99.81 Dependence on supplemental oxygen; F41.9 Anxiety disorder, unspecified; G89.29 Other chronic pain; M19.90 Unspecified osteoarthritis, unspecified site; Z88.8 Allergy status to other drugs, medicaments and biological substances
CPT/HCPCS: 36415; 71045; 71046; 71250; 78582; 80048; 80053; 83605; 83880; 84484; 85025; 85379; 85610; 85730; 87040; 87426; 87428; 87449; 93005; 93308; 94640; 94660; 94760; 96374; 96375; A9540; A9558; J0696; J1650; J1940; J2543; J2920; J2930; J3475; J7512; U0003; 99285-25; G0378; J7613; J7626